=== PATIENT | female | born 1965 | race Caucasian/White ===

== ENCOUNTER 2020-07-13 07:29 | Outpatient (REF) | payer OTHER, SELFPAY ==
[2020-07-13 11:21] LABS: MANUAL DIFF FLAG NO
[2020-07-13 11:26] LABS: Basophils Percent Auto 0.5 % (0-2); Eosinophils Absolute Auto 0.2 X10*3/uL (0.0-0.4); Eosinophils Percent Auto 1.9 % (0-4); Hematocrit 39.3 % (37-47); Hemoglobin 13.4 g/dl (12.0-16.0); Imm Gran Abs Auto 0.02 X10*3/uL (0.00-0.03); Imm Gran Pct Auto 0.3 % (0.0-0.4); Lymphocytes Absolute Auto 2.9 X10*3/uL (1.2-4.9); Lymphocytes Percent Auto 37.6 % (20-40); Mean Corpuscular HGB Conc 34.1 g/dl (31.0-35.0); Mean Corpuscular Hemoglobin 28.9 pg (27.0-33.0); Mean Corpuscular Volume 84.9 fL (80-98); Monocytes Absolute Auto 0.5 X10*3/uL (0.1-1.2); Monocytes Percent Auto 5.8 % (2-11); Neutrophils Absolute Auto 4.2 X10*3/uL (2.0-8.3); Neutrophils Percent Auto 53.9 % (45-73); Platelet Count 253 X10*3/uL (160-400); Red Blood Count 4.63 X10*6/uL (4.20-5.50); Red Cell Distribution Width 13.3 % (11.0-16.0); White Blood Count 7.8 X10*3/uL (4.8-10.8)
[2020-07-13 11:45] LABS: Alanine Aminotransferase 30 U/L (0-31); Alkaline Phosphatase 81 U/L (39-117); Anion Gap 14 (12-20); Aspartate Amino Transferase 20 U/L (5-31); Bilirubin Total 0.5 mg/dL (0.0-1.0); Blood Urea Nitrogen 17 mg/dL (9-16); Calcium 8.8 mg/dL (8.4-10.2); Carbon Dioxide 25 mmol/L (22-29); Chloride 106 mmol/L (96-108); Estimated Glomerular Filt Rate > 60; Glucose Fasting 105 mg/dL (60-99); Potassium 4.1 mmol/l (3.3-5.1); Sodium 141 mmol/L (135-145); Total Protein 6.4 g/dL (6.5-8.0)
[2020-07-13 12:07] LABS: Thyroid Stimulating Hormone 3.05 uIU/mL (0.32-4.0)
[2020-07-15 01:42] LABS: LDL Cholesterol Direct 125 mg/dL (<100)
== END 2020-07-13 07:30 | disposition home or self-care (01) ==
LOC: HO.HMGCLDS 07:29
PROVIDERS: PCP Internal Medicine; Visit Provider Internal Medicine
DX: K21.9 Gastro-esophageal reflux disease without esophagitis (principal); I10 Essential (primary) hypertension; F51.9 Sleep disorder not due to a substance or known physiological condition, unspecified; E66.01 Morbid (severe) obesity due to excess calories; Z68.37 Body mass index [BMI] 37.0-37.9, adult
CPT/HCPCS: 36415; 80053; 83721; 84443; 85025

== ENCOUNTER 2021-01-12 13:51 | Outpatient (REF) | payer OTHER, SELFPAY ==
[2021-01-12 16:51] LABS: MANUAL DIFF FLAG NO
[2021-01-12 16:54] LABS: Basophils Percent Auto 0.4 % (0-2); Eosinophils Absolute Auto 0.1 X10*3/uL (0.0-0.4); Eosinophils Percent Auto 1.7 % (0-4); Hematocrit 40.5 % (37-47); Hemoglobin 13.3 g/dl (12.0-16.0); Imm Gran Abs Auto 0.02 X10*3/uL (0.00-0.03); Imm Gran Pct Auto 0.3 % (0.0-0.4); Lymphocytes Absolute Auto 1.9 X10*3/uL (1.2-4.9); Mean Corpuscular HGB Conc 32.8 g/dl (31.0-35.0); Mean Corpuscular Hemoglobin 27.9 pg (27.0-33.0); Mean Corpuscular Volume 84.9 fL (80-98); Monocytes Absolute Auto 0.5 X10*3/uL (0.1-1.2); Monocytes Percent Auto 6.5 % (2-11); Neutrophils Absolute Auto 4.6 X10*3/uL (2.0-8.3); Neutrophils Percent Auto 64.1 % (45-73); Platelet Count 293 X10*3/uL (160-400); Red Blood Count 4.77 X10*6/uL (4.20-5.50); Red Cell Distribution Width 13.3 % (11.0-16.0); White Blood Count 7.1 X10*3/uL (4.8-10.8)
[2021-01-12 17:22] LABS: Alanine Aminotransferase 23 U/L (0-31); Albumin Level 4.4 g/dL (3.5-5.0); Alkaline Phosphatase 105 U/L (39-117); Anion Gap 16 (12-20); Aspartate Amino Transferase 14 U/L (5-31); Bilirubin Total 0.4 mg/dL (0.0-1.0); Blood Urea Nitrogen 24 mg/dL (9-16); Calcium 9.7 mg/dL (8.4-10.2); Carbon Dioxide 26 mmol/L (22-29); Chloride 105 mmol/L (96-108); Estimated Glomerular Filt Rate > 60; Glucose Random 112 mg/dL (60-115); Potassium 4.4 mmol/L (3.3-5.1); Sodium 143 mmol/L (135-145)
== END 2021-01-12 13:52 | disposition home or self-care (01) ==
LOC: HO.HMGCLDS 13:51
PROVIDERS: PCP Internal Medicine; Visit Provider Internal Medicine
DX: F41.1 Generalized anxiety disorder (principal); I10 Essential (primary) hypertension
CPT/HCPCS: 36415; 80053; 85025

== ENCOUNTER 2021-03-02 14:18 | Outpatient (REF) | payer OTHER, SELFPAY ==
--- NOTE | ~2021-03-02 | CT_ITS ---
EXAMINATION: CT ABDOMEN AND PELVIS WITHOUT CONTRAST CLINICAL INFORMATION: Kidney stone COMPARISON: Previous CT of the abdomen and pelvis most recent May 2018 TECHNIQUE: Multidetector volumetric imaging was performed from the superior aspect of the liver through the pubic symphysis. Sagittal and coronal reformatted images were obtained on the technologist's workstation. This CT examination was performed using dose optimization techniques as appropriate, variously including the following: *Automated exposure control *Adjustment of mA and/or kV according to patient size (this includes techniques or standardized protocols for targeted exams where dose is matched to indication/reason for exam; i.e. extremities or head) *Use of iterative reconstruction technique DLP: 631 mGy-cm FINDINGS: LUNG BASES: The visualized lung bases are unremarkable. LIVER, GALLBLADDER, AND BILIARY TREE: The liver is normal in size, shape, and attenuation. No focal hepatic lesion or biliary ductal dilatation is present. There is a gallstone in the gallbladder. PANCREAS: Unremarkable. SPLEEN: Unremarkable. ADRENAL GLANDS: Unremarkable. KIDNEYS AND URETERS: There is a 3 mm stone in the lower pole of the right kidney. There are 4 left renal stones in the mid pole, largest measuring 3 mm. No hydronephrosis, ureteral dilatation or ureteral stone is seen. BLADDER: Unremarkable. GASTROINTESTINAL TRACT: The small and large bowel are unremarkable. ABDOMINAL WALL: There is diastasis of the rectus muscles and small umbilical hernia containing fat. LYMPH NODES: Normal. VASCULAR: Unremarkable. PELVIC VISCERA: Unremarkable. OSSEOUS STRUCTURES: There are mild degenerative changes of the spine. CT/CT abdomen pelvis wo con IMPRESSION: Bilateral renal stones, left greater than right. Gallstone.
== END 2021-03-02 14:19 | disposition home or self-care (01) ==
LOC: HO.CT 14:18
PROVIDERS: PCP Internal Medicine; Visit Provider Urology
DX: N20.0 Calculus of kidney (principal)
CPT/HCPCS: 74176

== ENCOUNTER 2021-10-26 14:46 | Emergency (ER) | payer OTHER, SELFPAY ==
[2021-10-26 15:11] VITALS: BP 156/92; PULSE 76; RESP 18; TEMP 36.9; O2SAT 97; BMI 36.8
--- NOTE | 2021-10-26 15:13 | ECG_ITS ---
Test Reason : palpitations Blood Pressure : / mmHG Vent. Rate : 076 BPM Atrial Rate : 076 BPM P-R Int : 152 ms QRS Dur : 076 ms QT Int : 374 ms P-R-T Axes : 058 048 040 degrees QTc Int : 420 ms Sinus rhythm with Premature supraventricular complexes Low voltage QRS Borderline ECG When compared with ECG of 30-APR-2020 02:54, Premature supraventricular complexes are now Present Nonspecific T wave abnormality now evident in Anterior leads Referred By: Generic ED Physician Electronically Signed By:ISABELLE PARRA
[2021-10-26 15:50] LABS: MANUAL DIFF FLAG NO
[2021-10-26 15:52] LABS: Basophils Percent Auto 0.4 % (0-2); Eosinophils Absolute Auto 0.1 X10*3/uL (0.0-0.4); Eosinophils Percent Auto 1.1 % (0-4); Hematocrit 40.2 % (37.0-47.0); Hemoglobin 13.3 g/dl (12.0-16.0); Imm Gran Abs Auto 0.03 X10*3/uL (0.00-0.03); Imm Gran Pct Auto 0.4 % (0.0-0.4); Lymphocytes Absolute Auto 2.3 X10*3/uL (1.2-4.9); Lymphocytes Percent Auto 27.6 % (20-40); Mean Corpuscular HGB Conc 33.1 g/dl (31.0-35.0); Mean Corpuscular Hemoglobin 27.7 pg (27.0-33.0); Mean Corpuscular Volume 83.6 fL (80.0-98.0); Mean Platelet Volume 9.2 fL (9.4-12.3); Monocytes Absolute Auto 0.6 X10*3/uL (0.1-1.2); Monocytes Percent Auto 7.1 % (2-11); Neutrophils Absolute Auto 5.4 x10*3/uL (2.0-8.3); Neutrophils Percent Auto 63.4 % (45-73); Platelet Count 261 X10*3/uL (160-400); Red Blood Count 4.81 X10*6/uL (4.20-5.50); White Blood Count 8.4 X10*3/uL (4.8-10.8)
[2021-10-26 16:05] LABS: Anion Gap 13 (12-20); Blood Urea Nitrogen 11 mg/dL (9-16); Carbon Dioxide 30 mmol/L (22-29); Chloride 103 mmol/L (96-108); Estimated Glomerular Filt Rate > 60; Glucose Random 95 mg/dL (60-115); Potassium 4.3 mmol/L (3.3-5.1); Sodium 142 mmol/L (135-145)
[2021-10-26 16:08] LABS: COVID-19 Test Negative (Negative)
[2021-10-26 16:11] LABS: Troponin-I High Sensitivity < 3.5 ng/L (<3.5-17.0)
[2021-10-26 18:27] VITALS: BP 172/81; PULSE 75; RESP 18; TEMP 36.7; O2SAT 95
--- NOTE | 2021-10-26 18:27 | ED_ITS ---
HPI - Arrhythmia/Palpitations General Chief Complaint: Arrhythmia/Palpitations Stated Complaint: Chest pain/sent from urgent care Time Seen by Provider: 10/26/21 18:16 Source: patient Mode of arrival: ambulatory Limitations: no limitations History of Present Illness HPI narrative: Patient comes emergency room complaining of 4 days of intermittent palpitations, no chest pain, no shortness of breath. Patient was seen earlier today at a walk-in clinic, she was instructed to come to the emergency room since they t hought they saw EKG abnormalities. At this time, patient has no palpitations or chest pain. Related Data Previous Rx's Medication Instructions Recorded sertraline 100 mg tablet 100 mg PO DAILY #90 tab 10/08/21 lisinopril 20 mg tablet 20 mg PO DAILY 90 Days #90 tab 10/16/21 Allergies Allergy/AdvReac Type Severity Reaction Status Date / Time amoxicillin [From AUGMENTIN] Allergy Unknown UNKNOWN Verified 10/26/21 13:32 clavulanic acid Allergy Unknown UNKNOWN Verified 10/26/21 13:32 [From AUGMENTIN] Review of Systems Review of Systems: Constitutional : No Weight loss, No Fever, No Chills, No Night Sweats, No Fatigue, No Malaise ENT/Mouth : No Hearing loss, No Ear Pain, No Nasal Congestion, No Sinus Pain, No Hoarseness, No sore throat, No Rhinorrhea, No Swallowing Difficulty Eyes: No Eye Pain, No Swelling, No Redness, No Foreign Body, No Discharge, No Vision Changes Cardiovascular : No Chest Pain, No SOB, No Dyspnea on Exertion, No Orthopnea, No Edema, complaining of intermittent Palpitations Respiratory : No Cough, No Sputum, No Wheezing, No Smoke Exposure, No Dyspnea Gastrointestinal : No Nausea, No Vomiting, No Diarrhea, No Constipation, No abdominal Pain, No Hematochezia, No Melena Genitourinary : no irregular bleeding, No Dysuria, No Urinary Frequency, No Hematuria, No Urinary Incontinence, No Urgency, No Flank Pain, No Urinary Flow Changes, No Hesitancy Musculoskeletal : No joint pain, No Myalgias, No Joint Swelling Skin : No Skin Lesions, No rash Neuro : No Weakness, No Numbness, No Paresthesias, No Loss of Consciousness, No Dizziness, No Headache Psych : No Anxiety/Panic, No Depression, No SI/HI/AH/VH, No Social Issues, Heme/Lymph: No Bruising, No Bleeding,No Lymphadenopathy Endocrine : No Polyuria, No Polydipsia, No Temperature Intolerance [facility] Past Medical History Medical History Anxiety, generalized Essential hypertension Fear of flying History of renal calculi Migraine headache Obesity Surgical History History of appendectomy History of section History of cystoscopy History of knee surgery History of lithotripsy History of oophorectomy History of tonsillectomy History of ureter stent Family History Family History Father Unknown family medical history Mother COPD (chronic obstructive pulmonary disease) HTN (hypertension) CVD (cardiovascular disease) Son No problems noted. Daughter No problems noted. Social History Social History Alcohol intake: current Alcohol intake frequency: holidays/special occasions only Patient Tobacco Use Status: Former Tobacco user Quit Date: 2003 Tobacco use type: Cigarette Advance Directives: No Advance Directives Information Provided: No Physical Exam Vital Signs: Vital Signs: Last Vital Signs Temp 98.1 F 10/26/21 18:27 Pulse 68 10/26/21 19:27 Resp 20 10/26/21 19:27 BP 196/104 H 10/26/21 19:27 Pulse Ox 100 10/26/21 19:27 BMI result Body Mass Index 36.8 Const: Other: Appearance: Alert. Oriented X3. No acute distress. Well-appearing Eyes: Pupils equal, round and reactive to light. ENT: Pharynx normal. Neck: Normal inspection. Neck supple. No lymph nodes noted. No crepitus CVS: Normal heart rate mildly arrhythmic. Pulses normal. Normal S1 and S2 Respiratory: No respiratory distress. Breath sounds normal. No Wheezing. No rales Abdomen: Soft and nontender. No rigidity. No distention. Skin: Skin warm and dry. Normal skin color. Normal skin turgor. Extremities: No lower extremity edema. No Lacerations. No Rash Neuro: Oriented X 3. No motor deficit. No sensory deficit. Moving all extremities. No slurred speech. CN 2 through 12 grossly intact Psych: calm, cooperative, normal affect Course Course Course Narrative: I was informed by the patient's nurse that the patient eloped, did not wait for her results MDM - Arrhythmia/Palpitations Lab Data Result diagrams: 10/26/21 15:41 10/26/21 15:41 Labs: Lab Results 10/26/21 10/26/21 10/26/21 Range/Units 15:41 15:41 15:41 WBC 8.4 (4.8-10.8) X10*3/uL RBC 4.81 (4.20-5.50) X10*6/uL Hgb 13.3 (12.0-16.0) g/dl Hct 40.2 (37.0-47.0) % MCV 83.6 (80.0-98.0) fL MCH 27.7 (27.0-33.0) pg MCHC 33.1 (31.0-35.0) g/dl RDW 13.0 (11.0-16.0) % Plt Count 261 (160-400) X10*3/uL MPV 9.2 L (9.4-12.3) fL Immature Gran % (Auto) 0.4 (0.0-0.4) % Neut % (Auto) 63.4 (45-73) % Lymph % (Auto) 27.6 (20-40) % [place] % (Auto) 7.1 (2-11) % Eos % (Auto) 1.1 (0-4) % Baso % (Auto) 0.4 (0-2) % Lymph # (Auto) 2.3 (1.2-4.9) X10*3/uL [place] # (Auto) 0.6 (0.1-1.2) X10*3/uL Eos # (Auto) 0.1 (0.0-0.4) X10*3/uL Baso # (Auto) 0.0 (0.0-0.2) X10*3/uL Abs Immat Gran (auto) 0.03 (0.00-0.03) X10*3/uL Absolute Neuts (auto) 5.4 (2.0-8.3) x10*3/uL Absolute Nucleated RBC 0.000 (0.0-0.012) X10*3/uL Nucleated RBC % (auto) 0.0 (0.0-0.2) /100WBC Sodium 142 (135-145) mmol/L Potassium 4.3 (3.3-5.1) mmol/L Chloride 103 (96-108) mmol/L Carbon Dioxide 30 H (22-29) mmol/L Anion Gap 13 (12-20) BUN 11 (9-16) mg/dL Creatinine 0.95 (0.5-1.4) mg/dL Estim Creat Clear Calc 75.0 Estimated GFR > 60 Random Glucose 95 (60-115) mg/dL Calcium 10.0 (8.4-10.2) mg/dL Magnesium 1.9 (1.6-2.6) mg/dL Troponin I High Sens < 3.5 (<3.5-17.0) ng/L TSH 1.93 (0.32-4.0) uIU/mL COVID-19 ([facility]) (Negative) COVID-19 Clin Com 10/26/21 Range/Units 15:42 WBC (4.8-10.8) X10*3/uL RBC (4.20-5.50) X10*6/uL Hgb (12.0-16.0) g/dl Hct (37.0-47.0) % MCV (80.0-98.0) fL MCH (27.0-33.0) pg MCHC (31.0-35.0) g/dl RDW (11.0-16.0) % Plt Count (160-400) X10*3/uL MPV (9.4-12.3) fL Immature Gran % (Auto) (0.0-0.4) % Neut % (Auto) (45-73) % Lymph % (Auto) (20-40) % [place] % (Auto) (2-11) % Eos % (Auto) (0-4) % Baso % (Auto) (0-2) % Lymph # (Auto) (1.2-4.9) X10*3/uL [place] # (Auto) (0.1-1.2) X10*3/uL Eos # (Auto) (0.0-0.4) X10*3/uL Baso # (Auto) (0.0-0.2) X10*3/uL Abs Immat Gran (auto) (0.00-0.03) X10*3/uL Absolute Neuts (auto) (2.0-8.3) x10*3/uL Absolute Nucleated RBC (0.0-0.012) X10*3/uL Nucleated RBC % (auto) (0.0-0.2) /100WBC Sodium (135-145) mmol/L Potassium (3.3-5.1) mmol/L Chloride (96-108) mmol/L Carbon Dioxide (22-29) mmol/L Anion Gap (12-20) BUN (9-16) mg/dL Creatinine (0.5-1.4) mg/dL Estim Creat Clear Calc Estimated GFR Random Glucose (60-115) mg/dL Calcium (8.4-10.2) mg/dL Magnesium (1.6-2.6) mg/dL Troponin I High Sens (<3.5-17.0) ng/L TSH (0.32-4.0) uIU/mL COVID-19 ([facility]) Negative (Negative) COVID-19 Clin Com See Note ECG Data Attestation: I personally reviewed and interpreted this ECG as follows: (Sinus rhythm with PVCs, heart rate 76, no systemic depression or elevation, no T-wave inversion, QTC 420) Discharge Plan Discharge Clinical Impression: Palpitations Patient Disposition: Elopement Prescriptions: No Action sertraline 100 mg tablet 100 mg PO DAILY Qty: 90 0RF lisinopril 20 mg tablet 20 mg PO DAILY 90 Days Qty: 90 1RF
[2021-10-26 18:41] LABS: Magnesium 1.9 mg/dL (1.6-2.6)
[2021-10-26 19:01] LABS: Thyroid Stimulating Hormone 1.93 uIU/mL (0.32-4.0)
--- NOTE | 2021-10-26 19:20 | PC.NURSE ---
Melida coy. As i finished taking nursing report at the onset of my shift the patient walked by the nurses station, speaking to me and Gniny Crenshaw, and stated if you can just let them know that room 8 left I'm all set at which time the pt walked out of the department - independently and with steady gait. MD John notified. field engineer aware.
[2021-10-26 19:27] VITALS: BP 196/104; PULSE 68; RESP 20; O2SAT 100
== END 2021-10-26 20:13 | disposition left against medical advice (07) ==
PROVIDERS: Emergency Provider Emergency Medicine; PCP Internal Medicine
DX: R00.2 Palpitations (principal); I10 Essential (primary) hypertension; Z20.822 Contact with and (suspected) exposure to COVID-19
CPT/HCPCS: 80048; 83735; 84443; 84484; 85025; 87635; 93005; 99283; 99284

== ENCOUNTER 2021-11-16 09:32 | Outpatient (REF) | payer OTHER, SELFPAY ==
[2021-11-16 11:43] LABS: MANUAL DIFF FLAG NO
[2021-11-16 11:50] LABS: Basophils Percent Auto 0.4 % (0-2); Eosinophils Absolute Auto 0.1 X10*3/uL (0.0-0.4); Eosinophils Percent Auto 1.3 % (0-4); Hematocrit 39.7 % (37.0-47.0); Imm Gran Abs Auto 0.02 X10*3/uL (0.00-0.03); Imm Gran Pct Auto 0.3 % (0.0-0.4); Lymphocytes Absolute Auto 1.9 X10*3/uL (1.2-4.9); Lymphocytes Percent Auto 29.1 % (20-40); Mean Corpuscular HGB Conc 32.7 g/dl (31.0-35.0); Mean Corpuscular Hemoglobin 27.6 pg (27.0-33.0); Mean Corpuscular Volume 84.3 fL (80.0-98.0); Mean Platelet Volume 10.1 fL (9.4-12.3); Monocytes Absolute Auto 0.5 X10*3/uL (0.1-1.2); Monocytes Percent Auto 6.7 % (2-11); Neutrophils Absolute Auto 4.1 x10*3/uL (2.0-8.3); Neutrophils Percent Auto 62.2 % (45-73); Platelet Count 231 X10*3/uL (160-400); Red Blood Count 4.71 X10*6/uL (4.20-5.50); Red Cell Distribution Width 13.4 % (11.0-16.0); White Blood Count 6.7 X10*3/uL (4.8-10.8)
[2021-11-16 12:14] LABS: Alanine Aminotransferase 32 U/L (0-31); Albumin Level 4.1 g/dL (3.5-5.0); Alkaline Phosphatase 79 U/L (39-117); Anion Gap 14 (12-20); Aspartate Amino Transferase 18 U/L (5-31); Bilirubin Total 0.5 mg/dL (0.0-1.0); Blood Urea Nitrogen 20 mg/dL (9-16); Calcium 9.5 mg/dL (8.4-10.2); Carbon Dioxide 27 mmol/L (22-29); Chloride 105 mmol/L (96-108); Cholesterol 198 mg/dL; Estimated Glomerular Filt Rate > 60; Glucose Fasting 123 mg/dL (60-99); HDL Cholesterol 65 mg/dL; LDL Cholesterol Calculated 111 mg/dl; Magnesium 1.9 mg/dL (1.6-2.6); Potassium 4.5 mmol/L (3.3-5.1); Sodium 141 mmol/L (135-145); Total Protein 6.6 g/dL (6.5-8.0); Triglycerides 113 mg/dL
[2021-11-16 12:17] LABS: Estimated Average Glucose 114 mg/dL; Hemoglobin A1c % 5.6 %
[2021-11-16 12:22] LABS: TSH reflex Free T4 1.75 uIU/mL (0.32-4.0)
== END 2021-11-16 09:33 | disposition home or self-care (01) ==
LOC: HO.HMGCLDS 09:32
PROVIDERS: PCP Internal Medicine; Visit Provider Internal Medicine
DX: Z00.01 Encounter for general adult medical examination with abnormal findings (principal); I49.1 Atrial premature depolarization; K62.5 Hemorrhage of anus and rectum; R06.02 Shortness of breath; R19.8 Other specified symptoms and signs involving the digestive system and abdomen; R73.01 Impaired fasting glucose; I10 Essential (primary) hypertension
CPT/HCPCS: 36415; 80053; 80061; 83036; 83735; 84443; 85025

== ENCOUNTER 2021-12-09 07:15 | Emergency (ER) | payer OTHER, SELFPAY ==
--- NOTE | ~2021-12-09 | XR_ITS ---
EXAMINATION: XR CHEST CLINICAL INFORMATION: Left rib tenderness and dyspnea. COMPARISON: None TECHNIQUE: 2 views of the chest were obtained. FINDINGS: The lungs are well-expanded and clear acute pneumonic process. The heart size and pulmonary vascularity is normal. No gross bony abnormality seen. XR/XR chest 2V IMPRESSION: Unremarkable chest exam.
[2021-12-09 07:34] VITALS: BP 175/95; PULSE 78; RESP 18; TEMP 36.6; O2SAT 99; BMI 36.8
[2021-12-09 08:14] LABS: MANUAL DIFF FLAG NO
[2021-12-09 08:17] LABS: Basophils Percent Auto 0.4 % (0-2); Eosinophils Absolute Auto 0.1 X10*3/uL (0.0-0.4); Eosinophils Percent Auto 1.9 % (0-4); Hematocrit 37.4 % (37.0-47.0); Hemoglobin 12.4 g/dl (12.0-16.0); Imm Gran Abs Auto 0.09 X10*3/uL (0.00-0.03); Imm Gran Pct Auto 1.3 % (0.0-0.4); Lymphocytes Absolute Auto 2.1 X10*3/uL (1.2-4.9); Lymphocytes Percent Auto 29.7 % (20-40); Mean Corpuscular HGB Conc 33.2 g/dl (31.0-35.0); Mean Corpuscular Hemoglobin 27.7 pg (27.0-33.0); Mean Corpuscular Volume 83.5 fL (80.0-98.0); Monocytes Absolute Auto 0.5 X10*3/uL (0.1-1.2); Monocytes Percent Auto 6.5 % (2-11); Neutrophils Absolute Auto 4.2 x10*3/uL (2.0-8.3); Neutrophils Percent Auto 60.2 % (45-73); Platelet Count 254 X10*3/uL (160-400); Red Blood Count 4.48 X10*6/uL (4.20-5.50); Red Cell Distribution Width 13.1 % (11.0-16.0); White Blood Count 6.9 X10*3/uL (4.8-10.8)
[2021-12-09 08:33] LABS: Anion Gap 14 (12-20); Blood Urea Nitrogen 20 mg/dL (9-16); Calcium 9.7 mg/dL (8.4-10.2); Carbon Dioxide 25 mmol/L (22-29); Chloride 105 mmol/L (96-108); Creatinine Clr Calc Pharmacy 82.8; Estimated Glomerular Filt Rate > 60; Glucose Random 115 mg/dL (60-115); Potassium 4.4 mmol/L (3.3-5.1); Sodium 140 mmol/L (135-145)
--- NOTE | 2021-12-09 10:20 | ED.SOB ---
HPI - SOB/Dyspnea General Chief Complaint: Dyspnea Stated Complaint: pain l side Time Seen by Provider: 12/09/21 10:18 Source: patient Mode of arrival: ambulatory Limitations: no limitations History of Present Illness HPI Narrative: positive for COVID 11/25 MD elicited complaint: shortness of breath and chest pain Pertinent past history: other (COVID 4 no treatments done vaccinated hx of RAD hx of smoking ) Onset (ago): day(s) (few) Context: recent illness Severity: moderate Exacerbating factors: coughing and inspiration Relieving factors: nothing Known history of: other (reactive aiway disease) Associated symptoms: chest pain and cough Treatment prior to arrival: none Related Data Previous Rx's Medication Instructions Recorded lisinopril 20 mg tablet 20 mg PO DAILY 90 Days #90 tab 10/16/21 albuterol sulfate 90 mcg/actuation 2 puff INHALATION Q4H PRN #8.5 g 12/03/21 aerosol inhaler (ProAir HFA) azithromycin 250 mg tablet See Rx Instructions .ROUTE 12/09/21 .COMPLEX #6 tab cyclobenzaprine 10 mg tablet 10 mg PO TID PRN #14 tab 12/09/21 prednisone 20 mg tablet 40 mg PO DAILY 5 Days #10 tab 12/09/21 Allergies Allergy/AdvReac Type Severity Reaction Status Date / Time amoxicillin [From AUGMENTIN] Allergy Unknown UNKNOWN Verified 11/09/21 14:41 clavulanic acid Allergy Unknown UNKNOWN Verified 11/09/21 14:41 [From AUGMENTIN] Review of Systems Review of Systems: Constitutional : No Weight loss, No Fever, No Chills ENT/Mouth : No sore throat, No Rhinorrhea Eyes: No Eye Pain, No Swelling Cardiovascular : pos Chest Pain, pos SOB, no Dyspnea on Exertion, No Orthopnea, No Edema, No Palpitations Respiratory : pos Cough, No Sputum Gastrointestinal : no Nausea, No Vomiting, No Diarrhea, No abdominal Pain, No Hematochezia, No Melena Genitourinary : No Dysuria, No Urinary Frequency Musculoskeletal : No joint pain, No Myalgias, No Joint Swelling Skin : No Skin Lesions, No rash Neuro : No Weakness, No Numbness, No Dizziness, No Headache Psych : No Anxiety/Panic, No Depression Heme/Lymph: No Bruising, No Lymphadenopathy Endocrine : No Polyuria, No Polydipsia All other systems reviewed and are negative [facility] Past Medical History Attestation statement: The following information was validated with the patient. Medical History Anxiety, generalized Essential hypertension Fear of flying History of renal calculi Migraine headache Obesity Surgical History History of appendectomy History of section History of cystoscopy History of knee surgery History of lithotripsy History of oophorectomy History of tonsillectomy History of ureter stent Family History Family History Father Unknown family medical history Mother COPD (chronic obstructive pulmonary disease) HTN (hypertension) CVD (cardiovascular disease) Son No problems noted. Daughter No problems noted. Other Mental health disorder Social History Social History Housing: House Alcohol intake: current Alcohol intake frequency: holidays/special occasions only Patient Tobacco Use Status: Former Tobacco user Quit Date: 2003 Tobacco use type: Cigarette Advance Directives: No Advance Directives Information Provided: No Current occupational status: employed Physical Exam Vital Signs: Vital Signs: Last Vital Signs Temp 98.1 F 12/09/21 10:45 Pulse 73 12/09/21 10:45 Resp 18 12/09/21 10:45 BP 154/89 H 12/09/21 10:45 Pulse Ox 98 12/09/21 10:45 BMI result Body Mass Index 36.8 Appearance: Alert. Oriented X3. No acute distress. Eyes: Pupils equal, round and reactive to light. ENT: Pharynx normal. Neck: Normal inspection. Neck supple. CVS: Normal heart rate and rhythm. Pulses normal. Respiratory: No respiratory distress. Breath sounds normal. splinting L side Abdomen: Soft and nontender. Skin: Skin warm and dry. Normal skin color. Normal skin turgor. Extremities: No lower extremity edema. No calf ttp Neuro: Oriented X 3. No motor deficit. No sensory deficit. Course Course Course Narrative: CXR, EKG, troponin negative ddimer under upper limits of normal MDM - SOB/Dyspnea MDM Narrative Medical decision making narrative: 56 yo female with hx of RAD s/p smoking but quit several years ago, HTN hasn't taken her medications in 2 days, COVID + 11/25 no treatments during the illness she is vaccinated at this time c/o pleuritic L sided chest pain for the past few days. At this time will need basic labs, troponin, ddimer, CXR, EKG possible pleurisy/pneumonia vs PE dispo per results and findings. Lab Data Result diagrams: 12/09/21 08:10 12/09/21 08:09 Labs: Lab Results 12/09/21 12/09/21 12/09/21 Range/Units 08:09 08:09 08:10 WBC 6.9 (4.8-10.8) X10*3/uL RBC 4.48 (4.20-5.50) X10*6/uL Hgb 12.4 (12.0-16.0) g/dl Hct 37.4 (37.0-47.0) % MCV 83.5 (80.0-98.0) fL MCH 27.7 (27.0-33.0) pg MCHC 33.2 (31.0-35.0) g/dl RDW 13.1 (11.0-16.0) % Plt Count 254 (160-400) X10*3/uL MPV 9.0 L (9.4-12.3) fL Immature Gran % (Auto) 1.3 H (0.0-0.4) % Neut % (Auto) 60.2 (45-73) % Lymph % (Auto) 29.7 (20-40) % [place] % (Auto) 6.5 (2-11) % Eos % (Auto) 1.9 (0-4) % Baso % (Auto) 0.4 (0-2) % Lymph # (Auto) 2.1 (1.2-4.9) X10*3/uL [place] # (Auto) 0.5 (0.1-1.2) X10*3/uL Eos # (Auto) 0.1 (0.0-0.4) X10*3/uL Baso # (Auto) 0.0 (0.0-0.2) X10*3/uL Abs Immat Gran (auto) 0.09 H (0.00-0.03) X10*3/uL Absolute Neuts (auto) 4.2 (2.0-8.3) x10*3/uL Absolute Nucleated RBC 0.000 (0.0-0.012) X10*3/uL Nucleated RBC % (auto) 0.0 (0.0-0.2) /100WBC D-Dimer High Sensitivty NG/ML Sodium 140 (135-145) mmol/L Potassium 4.4 (3.3-5.1) mmol/L Chloride 105 (96-108) mmol/L Carbon Dioxide 25 (22-29) mmol/L Anion Gap 14 (12-20) BUN 20 H (9-16) mg/dL Creatinine 0.85 (0.5-1.4) mg/dL Estim Creat Clear Calc 82.8 Estimated GFR > 60 Random Glucose 115 (60-115) mg/dL Calcium 9.7 (8.4-10.2) mg/dL Troponin I High Sens < 3.5 (<3.5-17.0) ng/L 12/09/21 Range/Units 10:28 WBC (4.8-10.8) X10*3/uL RBC (4.20-5.50) X10*6/uL Hgb (12.0-16.0) g/dl Hct (37.0-47.0) % MCV (80.0-98.0) fL MCH (27.0-33.0) pg MCHC (31.0-35.0) g/dl RDW (11.0-16.0) % Plt Count (160-400) X10*3/uL MPV (9.4-12.3) fL Immature Gran % (Auto) (0.0-0.4) % Neut % (Auto) (45-73) % Lymph % (Auto) (20-40) % [place] % (Auto) (2-11) % Eos % (Auto) (0-4) % Baso % (Auto) (0-2) % Lymph # (Auto) (1.2-4.9) X10*3/uL [place] # (Auto) (0.1-1.2) X10*3/uL Eos # (Auto) (0.0-0.4) X10*3/uL Baso # (Auto) (0.0-0.2) X10*3/uL Abs Immat Gran (auto) (0.00-0.03) X10*3/uL Absolute Neuts (auto) (2.0-8.3) x10*3/uL Absolute Nucleated RBC (0.0-0.012) X10*3/uL Nucleated RBC % (auto) (0.0-0.2) /100WBC D-Dimer High Sensitivty 223 NG/ML Sodium (135-145) mmol/L Potassium (3.3-5.1) mmol/L Chloride (96-108) mmol/L Carbon Dioxide (22-29) mmol/L Anion Gap (12-20) BUN (9-16) mg/dL Creatinine (0.5-1.4) mg/dL Estim Creat Clear Calc Estimated GFR Random Glucose (60-115) mg/dL Calcium (8.4-10.2) mg/dL Troponin I High Sens (<3.5-17.0) ng/L ECG Data Attestation: I personally reviewed and interpreted this ECG as follows: ECG interpretation date: 12/09/21 ECG interpretation time: 10:37 Interpretation: Rate: 73 Rhythm: NSR Howes: normal Normal P waves. Normal LULU. Normal QRS complex. ST T wave : normal no ANUPAM qTC: normal prior studies: no acute ischemia The study has been interpreted contemporaneously by me. . Discharge Plan Discharge Clinical Impression: Pleurisy Patient Disposition: Home, Self-Care Instructions: Pleurisy (ED) Additional Instructions: return to ED for any worsening symptoms or concerns negative blood work , heart tests, blood clot tests negative, chest xray negative Prescriptions: New cyclobenzaprine 10 mg tablet 10 mg PO TID PRN (Reason: muscle spasm) Qty: 14 0RF azithromycin 250 mg tablet See Rx Instructions .ROUTE .COMPLEX Qty: 6 0RF Rx Instructions: For 250 mg dose pack: take 500 mg today (day 1), then 250 mg for 4 days (days 2-5) prednisone 20 mg tablet 40 mg PO DAILY 5 Days Qty: 10 0RF No Action lisinopril 20 mg tablet 20 mg PO DAILY 90 Days Qty: 90 1RF albuterol sulfate [ProAir HFA] 90 mcg/actuation HFA aerosol inhaler 2 puff inhalation Q4H PRN (Reason: shortness of breath or wheezing) Qty: 8.5 0RF Referrals: Maria Isabel Avendano MD [Primary Care Provider] - (if not better 2 days) Stand Alone Forms: Work/School Release
[2021-12-09 10:45] VITALS: BP 154/89; PULSE 73; RESP 18; TEMP 36.7; O2SAT 98
[2021-12-09] MEDS: lisinopriL 20 MG TABLET PO (10:45)
[2021-12-09] MEDS: predniSONE 20 MG TABLET 60 MG PO (10:45)
[2021-12-09 10:55] LABS: Troponin-I High Sensitivity < 3.5 ng/L (<3.5-17.0)
[2021-12-09 10:59] LABS: D Dimer High Sensitivity 223 NG/ML
== END 2021-12-09 11:22 | disposition home or self-care (01) ==
PROVIDERS: Emergency Provider Emergency Medicine; PCP Internal Medicine
DX: R09.1 Pleurisy (principal); I10 Essential (primary) hypertension; Z87.891 Personal history of nicotine dependence
CPT/HCPCS: 36415; 71046; 80048; 84484; 85025; 85379; 99283

== ENCOUNTER 2021-12-21 07:55 | Outpatient (REF) | payer OTHER, SELFPAY ==
--- NOTE | ~2021-12-21 | MM_ITS ---
EXAMINATION: MM SCREENING DIGITAL BREAST TOMOSYNTHESIS, BILATERAL CLINICAL INFORMATION: Screening. Asymptomatic. The lifetime risk of breast cancer based on the Tyrer-Cuzick Model is 8%. COMPARISON: Mammography: 06/01/2018, 06/23/2017, 05/30/2017 TECHNIQUE: Digital breast tomosynthesis is performed in both the craniocaudal and mediolateral oblique views along with computer-aided detection (CAD). Synthesized 2D images are generated from the tomosynthesis. FINDINGS: There are scattered areas of fibroglandular density (ACR BI-RADS breast composition Category b). There are no significant masses, abnormal calcifications, or other abnormalities. Parenchymal pattern is similar to prior studies. The axilla are unremarkable. MM/MM tomosynthesis screening BI IMPRESSION: No mammographic evidence of malignancy. ASSESSMENT: BI-RADS 1: Negative RECOMMENDATION: Routine annual mammography screening. This patient's information was entered into a reminder system with a target due date for their next mammogram.
--- NOTE | 2021-12-21 14:24 | PFT_ITS ---
Forced vital capacity 66%, FEV1 65%. FEV1/FVC ratio is 78, normal. FEF 25-75 57% and MVV 78%. Post-bronchodilator therapy, there is a slight improvement in FEF 25-75. Total lung capacity 70%, residual volume 70%. Diffusion capacity 72%. CONCLUSION: There is evidence of mild restrictive pulmonary disorder. Also mild small airway obstructive disorder which improves after bronchodilator therapy. This may indicate mild bronchial asthma/reactive airways. Clinical correlation is recommended. Maryann Wilson MD MSSergio/MODL / [id number]
== END 2021-12-21 07:56 | disposition home or self-care (01) ==
LOC: HO.RESP 07:55
PROVIDERS: PCP Internal Medicine; Visit Provider Internal Medicine
DX: Z12.31 Encounter for screening mammogram for malignant neoplasm of breast (principal); R06.02 Shortness of breath; Z87.891 Personal history of nicotine dependence
CPT/HCPCS: 77063; 77067; 94060; 94727; 94729

== ENCOUNTER → 2022-01-14 14:43 | Outpatient (BNVA) | payer OTHER, SELFPAY | PROVIDERS: PCP Internal Medicine; Referring Provider Internal Medicine; Visit Provider Internal Medicine Cardiovascular Disease | DX: Z13.89 Encounter for screening for other disorder (principal) ==

== ENCOUNTER 2022-02-08 09:29 | Outpatient (REF) | payer OTHER, SELFPAY ==
[2022-02-08 15:48] LABS: CT PCR NOT DETECTED (Not Detect.); NG PCR NOT DETECTED (Not Detect.)
[2022-02-09 15:00] LABS: BV Int Neg Control Negative (Negative); BV Int Pos Control Positive (Positive)
[2022-02-15 07:06] LABS: HPV mRNA E6/E7 rflx Not Detected (Not Detected)
== END 2022-02-08 09:30 | disposition home or self-care (01) ==
LOC: HO.LAB 09:29
PROVIDERS: Visit Provider Advanced Practice Midwife
DX: Z01.419 Encounter for gynecological examination (general) (routine) without abnormal findings (principal)
CPT/HCPCS: 87480; 87491; 87510; 87591; 87624; 87660; 88142

== ENCOUNTER → 2022-02-21 09:57 | Outpatient (REF) | payer OTHER, SELFPAY ==
--- NOTE | ~2022-02-21 | NM_ITS ---
Myocardial perfusion study Indication: Shortness of breath evaluate for myocardial ischemia Technique: The patient was brought in for a Lexiscan perfusion study on 02/21/2022. Patient performed low-level exercise and was injected 0.4 mg of Lexiscan intravenously. Within a minute of injection, 30 mCi of sestamibi was given intravenously. Images were obtained using the SPECT gamma camera interlaced with the gating device. Images were obtained in supine position. Resting perfusion study was performed on 02/22/2022. Patient was administered 30 mCi of sestamibi intravenously at rest. Images were then obtained in supine position. Images obtained with and without CT attenuation. Total DLP 120 mGy-cm. Images were processed with the software and compared side to side in short axis, horizontal long axis and vertical long axis views. Findings: The stress perfusion study showed both attenuated as well as non attenuated images show normal uptake of radiotracer in all segments of LV myocardium. The gated study shows normal LV systolic function with visually estimated LVEF of greater than 60%. LV cavity is normal in size. The gated study shows normal systolic wall thickening and contraction of segments. Resting study shows no significant change in perfusion pattern compared to stress perfusion study. Gating at rest reveals normal systolic wall motion with ejection fraction at 56%. The findings are consistent with normal myocardial perfusion. NM/NM lorene perf SPECT rest & str Impression: 1. Myocardial perfusion imaging study shows normal myocardial perfusion 2. Gated LVEF is 56% 3. Transient ischemic dilatation not present EKG is nondiagnostic for ischemia
--- NOTE | 2022-02-21 10:00 | CA_ITS ---
Acquisition Time: 2022-02-21 10:16:52 Total Exercise Time: 00:02:00 Test Indications: Dyspnea Medications: ALBUTEROL LISINOPRIL PREDNISONE CYCLOBENZAPRINE AZITHROMYCIN Protocol: LEXISCAN Max HR: 107 BPM 65% of Pred: 163 BPM Max BP: 112/070 mmHG Max Work Load: 1.6 METS Pharmacological stress test using Lexiscan while walking on the treadmill for 2 minutes. Pt tolerated well, denies any CP, reports SOB after injected with Mariola. EKG without any arrhythmias, non-diagnostic for ischemia. Nuclear images to follow. Normotensive response to test. Test reviewed with Dr. Herring Referred By: Willy Herring Overread By: Isela Celeste NP
== END ==
LOC: HO.CARD 09:57
PROVIDERS: PCP Internal Medicine; Visit Provider Internal Medicine Cardiovascular Disease
DX: R06.02 Shortness of breath (principal)
CPT/HCPCS: 78452; 93017; A9500; J0280; J2785

== ENCOUNTER → 2022-02-22 12:04 | Outpatient (REF) | payer OTHER, SELFPAY ==
--- NOTE | 2022-02-22 12:07 | CA_ITS ---
Transthoracic Echocardiogram Patient (Last, First, Middle): Melida Chapa, Gender: Female Date of : 1965 Age: 56 Procedure Date: 02/22/2022 Procedure Type: Transthoracic Echocardiogram Location: OP Height: 157.48 cm Weight: 98.43 kg BSA: 1.98 m2 Heart Rate: 88 bpm BP: 108 / 64 mmHg Coagulation Operator: JOHANNY Referring MD: Willy Herring MD Mechanical Spreader Operator: Willy Herring MD Symptoms: R06.02 - Shortness of breath Study Quality: Fair ECG Rhythm: Sinus Conclusions: - 1. Hyperdynamic LV systolic function with LVEF of greater than 70% with grade 1 diastolic dysfunction 2. Increased gradient across aortic valve which could suggest early aortic stenosis worse is high stroke volume 3. No gross pericardial effusion Findings Procedure Information Contrast agent, definity, is being given per protocol without apparent complications. Left Ventricle Normal left ventricular cavity size. There is normal left ventricular wall thickness. The left ventricular systolic function is hyperdynamic. The visually estimated ejection fraction is >70%. Spectral Doppler is indicative of an impaired relaxation filling pattern. E/E prime ratio is <8, consistent with normal filling pressures. Evidence suggests grade I (mild) diastolic dysfunction. Right Ventricle Normal right ventricular cavity size and systolic function. Atria The left atrium is normal in size. The right atrium was not well visualized. Aortic Valve The aortic valve was not well visualized. There is no aortic valve stenosis. There is no aortic valve regurgitation. slightly increased gradient, could suggest early aortic stenosis Mitral Valve There is mild anterior mitral leaflet thickening. There is mild mitral annular calcification. There is trace mitral valve regurgitation. There is no mitral valve stenosis. Pulmonic Valve The pulmonic valve was not well visualized. Tricuspid Valve The tricuspid valve was not well visualized. Tricuspid regurgitation envelope is inadequate for calculation of right ventricular systolic pressure. Normal right atrial pressure. Great Vessels All visible segments of the aorta are normal in size. The pulmonary artery was not well visualized. Venous The inferior vena cava is normal in size and collapses greater than 50% with inspiration. Pericardium/Pleural There is no evidence of pericardial effusion. Prior Study Comparison No prior study available for comparison. Measurements 2D Linear Measurements IVSd: 0.86 0.6-0.9/0.6-1.0 cm LVIDd: 5.02 3.9-5.3/4.2-5.9 cm LVIDd Index: 2.54 2.4-3.2/2.2-3.1 cm/m2 LVIDs: 2.91 2.0-3.6 cm LVPWd: 0.52 0.7-1.1 cm LA Diam: 3.40 2.7-3.8/3.0-4.0 cm LAIDs Index: 1.72 1.5-2.3 cm/m2 LV Mass: 141.06 67-162/88-224 g LV Mass Index: 71.24 43-95/49-115 g/m2 LVOT Diam: 2.30 3.0+(-)1.3 cm 2D Systolic Function EF 4C: 79.00 >55% EF 2C: 76.80 >55% EF BiP: 77.20 >55% Mitral Valve MV Pk E: 0.72 MV PK A: 0.91 MV Decel Time: 163.00 E/A: 0.80 E'Lateral: 7.83 E'Medial: 10.20 E/E' Med: 7.00 E/E' Lat: 9.10 PHT: 48.00 MVA PHT: 4.58 Decel Carver: 4.39 Aortic Valve AoV Pk Niraj: 2.30 AoV Mn Niraj: 1.53 AoV VTI: 0.42 AoV Pk Grad: 21.00 Aov Mn Grad: 11.00 ARTHUR Cont.VTI: 2.40 LVOT LVOT Pk Niraj: 1.20 LVOT Mn Niraj: 0.78 LVOT VTI: 0.25 LVOT Pk Grad: 6.00 LVOT Mn Grad: 3.00 LVOT Diam: 2.30 LVOT Area: 4.15 Diastolic Function MV Pk E: 0.72 MV Pk A: 0.91 E/A: 0.80 E'Medial: 10.20 E/E' Med: 7.00 E' Laterial: 7.83 E/E' Lat: 9.10 Right Ventricle TAPSE (mm): 20.30 TVS' Niraj: 18.20 Tricuspid Valve RA Press: 3.00 Great Vessels Aorta Sinus of Valsalva: 3.50 2.0-3.5 cm Ao Asc: 3.30 2.1-3.4 cm Ao Arch: 2.70 Pulmonary Veins Pulm Vein S/D 1.70 Pulmonary Valve PV Pk Niraj: 1.17 Peak PV Grad: 5.00 Updated in Other Vendor System with Status of Final Willy Herring MD electronically signed on 02/24/2022 12:54:46 PM with status of Final
== END ==
LOC: HO.CARD 12:04
PROVIDERS: PCP Internal Medicine; Visit Provider Internal Medicine Cardiovascular Disease
DX: R06.02 Shortness of breath (principal)
CPT/HCPCS: 93306; Q9957

== ENCOUNTER 2022-06-21 08:17 | Outpatient (REF) | payer OTHER, SELFPAY ==
[2022-06-21 12:27] LABS: TSH reflex Free T4 2.67 uIU/mL (0.32-4.0)
[2022-06-21 12:49] LABS: Alanine Aminotransferase 20 U/L (0-31); Albumin Level 4.1 g/dL (3.5-5.0); Alkaline Phosphatase 67 U/L (39-117); Anion Gap 17 (12-20); Aspartate Amino Transferase 13 U/L (5-31); Bilirubin Total 0.4 mg/dL (0.0-1.0); Blood Urea Nitrogen 12 mg/dL (9-16); Calcium 9.3 mg/dL (8.4-10.2); Carbon Dioxide 25 mmol/L (22-29); Chloride 105 mmol/L (96-108); Estimated Glomerular Filt Rate > 60; Glucose Fasting 116 mg/dL (60-99); Potassium 4.1 mmol/L (3.3-5.1); Sodium 143 mmol/L (135-145); Total Protein 6.4 g/dL (6.5-8.0)
[2022-06-21 12:52] LABS: Estimated Average Glucose 103 mg/dL; Hemoglobin A1c % 5.2 %
[2022-06-24 04:42] LABS: LDL Cholesterol Direct 112 mg/dL (<100)
== END 2022-06-21 08:18 | disposition home or self-care (01) ==
LOC: HO.HMGCLDS 08:17
PROVIDERS: PCP Internal Medicine; Visit Provider Internal Medicine
DX: I10 Essential (primary) hypertension (principal); R73.01 Impaired fasting glucose; E66.09 Other obesity due to excess calories
CPT/HCPCS: 36415; 80053; 83036; 83721; 84443

== ENCOUNTER 2022-07-30 08:55 | Day surgery (SDC) | payer OTHER, SELFPAY ==
[2022-07-25 13:58] VITALS: BMI 34.4
--- NOTE | 2022-07-29 11:45 | P.CONAN_ITS ---
Documented by User: Viviana Singh NP 07/29/22 11:49 HPI - Anesthesia Eval Consult details Narrative: 56yo F for Upper Endoscopy and Colonoscopy PMFSH Active Problems Active Problems: All Active Problems (Updated 02/15/22 @ 12:58 by Maria Isabel Avendano MD) Obesity due to excess calories (Acute) Change in bowel function (Acute) Rectal bleed (Acute) Encounter for routine gynecological examination (Acute) Impaired fasting blood sugar (Acute) Ex-smoker (Acute) Shortness of breath (Acute) Premature atrial contraction (Acute) Encounter for general adult medical examination with abnormal findings (Acute) Breast screening (Acute) Obesity (Acute) Migraine headache (Acute) Anxiety, generalized (Acute) Essential hypertension (Acute) Past Medical History Medical History Anxiety, generalized Essential hypertension Fear of flying History of renal calculi Migraine headache Obesity Family History Family History Father Unknown family medical history Mother COPD (chronic obstructive pulmonary disease) HTN (hypertension) CVD (cardiovascular disease) Son No problems noted. Daughter No problems noted. 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 occupational 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 Cognitive needs: No Hearing needs: No Vision needs: Yes Meds Allergies Allergy/AdvReac Type Severity Reaction Status Date / Time clavulanic acid AdvReac Mild Irritable Verified 06/28/22 12:30 [From AUGMENTIN] Exam Exam Date and Time: July 29, 2022 1145 Height,Weight and Vital Signs: Height 5 ft 4 in Weight 91.172 kg Pertinent Lab Results Pertinent Lab Results: Laboratory Tests 12/09/21 06/21/22 08:10 08:21 WBC 6.9 Hgb 12.4 Hct 37.4 Plt Count 254 Sodium 143 Potassium 4.1 Chloride 105 Carbon Dioxide 25 BUN 12 Creatinine 0.81 Narrative Narrative: EKG 10/2021 SR with PACs @ 84 ECHO 02/2022 Conclusions: - 1. Hyperdynamic LV systolic function with LVEF of greater than 70% with grade 1 diastolic dysfunction ? 2. Increased gradient across aortic valve which could suggest? ? early aortic stenosis worse is high stroke volume? 3. No gross pericardial effusion ? ? NM lorene perf SPECT rest & str 02/2022 Impression: ? 1.? Myocardial perfusion imaging study shows normal myocardial perfusion 2.? Gated LVEF is 56% 3. Transient ischemic dilatation not present ? EKG is nondiagnostic for ischemia Assessment and Plan Assessment Anesthesia Assessment: Chart Reviewed Documented by User: Fortino Higuera MD 07/30/22 09:46 [facility] Past Medical History Medical History Anxiety, generalized Essential hypertension Fear of flying History of renal calculi Migraine headache Obesity Family History Family History Father Unknown family medical history Mother COPD (chronic obstructive pulmonary disease) HTN (hypertension) CVD (cardiovascular disease) Son No problems noted. Daughter No problems noted. Other Mental health disorder Family history of problems with anesthesia: No Surgical History Surgical History History of appendectomy History of section History of cystoscopy History of knee surgery History of lithotripsy History of oophorectomy History of tonsillectomy History of ureter stent Hx of colonoscopy History of Problems with Anesthesia: No Social History Social History Housing: House Alcohol intake: current Alcohol intake frequency: does not drink Patient Tobacco Use Status: Former Tobacco user Quit Date: 2003 Tobacco use type: Cigarette e-Cigarette/Vaping Use: Never Used Are you DNR?: No Advance Directives: No Advance Directives Information Provided: Yes 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 occupational 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 Cognitive needs: No Hearing needs: No Vision needs: Yes Meds Allergies Allergy/AdvReac Type Severity Reaction Status Date / Time clavulanic acid AdvReac Mild Irritable Verified 06/28/22 12:30 [From AUGMENTIN] Exam Airway Mallampati Class: II TM Dist: >3cm Neck ROM: Full Loose/Missing/Broken Teeth: No Heart: [id number] Lungs: cta b/l Assessment and Plan Assessment Anesthesia Assessment: Anesthesia Plan Discussed Final Anesthetic Review Family History of Problems with Anesthesia: No History of Problems with Anesthesia: No NPO: Yes ASA Class: II Final Preanesthetic Review: No Changes in Pt Med Stat, Meds/Allgs Chart Reviewed, Consent Obtained/Reviewed and Anes Risks/Benef Reviewed Patient Risk: Intermediate Procedure Risk: Intermediate Assessment/Block/Sedation in SS: Assess/Block/Sedation-SS Anesthetic Plan Anesthetic Plan: MAC: and Agree w/ Assess. and Plan Disposition: Standard PACU
[2022-07-30 08:56] VITALS: BP 161/85; PULSE 73; RESP 16; TEMP 36.6; O2SAT 97
--- NOTE | 2022-07-30 09:00 | MHC.SHP ---
Pre-Procedural Eval Section A Date of Service: 07/30/22 Section B Chief Complaint: hx of polyps Relevant Family History (Specify if Yes): No Relevant Social History: None Present Medications: see Short Stay Collaborative assessment Medical History: Significant History (Anxiety, generalized Essential hypertension Fear of flying History of renal calculi Migraine headache Obesity) History of Previous Operations: Relevant previous surgery/procedure and date(s) (History of appendectomy History of section History of cystoscopy History of knee surgery History of lithotripsy History of oophorectomy History of tonsillectomy History of ureter stent Hx of colonoscopy) Allergies: Allergies Allergy/AdvReac Type Severity Reaction Status Date / Time clavulanic acid AdvReac Mild Irritable Verified 06/28/22 12:30 [From AUGMENTIN] Review of Systems Sugical H&P ROS: Negative: Constitution, Cardiovascular, Respiratory, Neurological, Psychiatric, Hem-Onc, Allergic/Immunologic, Gastrointestinal, Genitourinary, Musculoskeletal, Integumentary, Endocrine and Eyes/Ears/Nose/Throat Exam Surgical H&P Exam: Normal: HEENT, Normal: Heart, Normal: Lungs, Normal: Extremities, Normal: Abdomen, Normal: Skin and Normal: Neurological Plan Diagnosis/Plan: Unchanged I have reviewed the history and physical and performed a pertinent physical examination on my patient. No changes have occurred unless specified. Time Spent With Patient Time: Total time managing care of this patient today ____ minutes.
[2022-07-30] MEDS: Lactated Ringers 1,000 ML 100 ML IVCONT (09:23)
--- NOTE | 2022-07-30 09:36 | P.OP_ITS ---
Operative Note Operative Note Date of Service: 07/30/22 Narrative: Operative Information Procedure Description: Colonoscopy Indication: Hx of colon polyps Anesthesia: MAC COLONOSCOPY Instrument: Olympus variable stiffness pediatric scope 190L Colonoscopy Monitoring: Vital signs and clinical assessment, continuous EKG monitoring, Pulse oximetry, Carbon Dioxide monitoring and blood pressure monitoring were done throughout the procedure. Colon withdrawal time was 7 minutes. Procedure: The patient was placed in the left lateral decubitis position and pre-procedure medications were administered. After a digital rectal examination of the ano-rectum, the video colonoscope was inserted into the rectum and advanced through the colon to the cecum/TI. The colonoscope was slowly withdrawn in a retrograde panoramic fashion and the colon mucosa was carefully examined including a retroflexed view of the rectum. Findings and interventions are described below. Procedure Difficulty: easy Findings: Terminal Ileum-normal Cecum:normal Ascending Colon: normal Transverse Colon -normal Descending Colon:normal Sigmoid Colon: moderate diverticulosis Rectum: Retroflexion with small internal hemorrhoids, grade I Anorectum - normal Colon preparation: [place] Bowel Preparation Scale Right colon; 3 Transverse colon: 3 Left colon; 3 (0 = Unprepared colon segment with mucosa not seen due to solid stool that cannot be cleared. 1 = Portion of mucosa of the colon segment seen, but other areas of the colon segment not well seen due to staining, residual stool and/or opaque liquid. 2 = Minor amount of residual staining, small fragments of stool and/or opaque liquid, but mucosa of colon segment seen well. 3 = Entire mucosa of colon segment seen well with no residual staining, small fragments of stool or opaque liquid) Impression and Post Procedure Diagnosis: internal hemorrhoids diverticular disease Plan: High fiber diet leaflet Avoid straining at stool, epsom salts and sitz bath, anusol supps or cream Repeat Colonoscopy in 5-7 years due to prior hx of polyps or earlier if clinically indicated Above findings were reviewed with the patient and relevant handouts were provided if indicated.
[2022-07-30 10:09] VITALS: BP 132/69; PULSE 71; RESP 16; TEMP 36.1; O2SAT 97
[2022-07-30 10:24] VITALS: BP 145/85; PULSE 71; RESP 16; TEMP 36.2; O2SAT 96
== END 2022-07-30 11:24 | disposition home or self-care (01) ==
PROVIDERS: PCP Internal Medicine; Visit Provider Internal Medicine Gastroenterology
PROC: 0DJD8ZZ Inspection of Lower Intestinal Tract, Via Natural or Artificial Opening Endoscopic (ICD-10-PCS; CPT 45378; principal; 2022-07-30 10:10)
DX: Z12.11 Encounter for screening for malignant neoplasm of colon (principal); Z86.010 Personal history of colon polyps; K57.30 Diverticulosis of large intestine without perforation or abscess without bleeding; K64.0 First degree hemorrhoids; K21.9 Gastro-esophageal reflux disease without esophagitis; I10 Essential (primary) hypertension; E66.09 Other obesity due to excess calories; Z68.36 Body mass index [BMI] 36.0-36.9, adult; G43.909 Migraine, unspecified, not intractable, without status migrainosus; F41.1 Generalized anxiety disorder; Z88.1 Allergy status to other antibiotic agents; Z87.891 Personal history of nicotine dependence
CPT/HCPCS: 45378

== ENCOUNTER 2022-11-12 06:13 | Outpatient (REF) | payer OTHER, SELFPAY ==
[2022-11-12 12:13] LABS: Estimated Average Glucose 108 mg/dL; Hemoglobin A1c % 5.4 %
[2022-11-12 12:20] LABS: Alanine Aminotransferase 17 U/L (0-31); Albumin Level 4.1 g/dL (3.5-5.0); Alkaline Phosphatase 74 U/L (39-117); Anion Gap 12 (12-20); Aspartate Amino Transferase 12 U/L (5-31); Bilirubin Total 0.5 mg/dL (0.0-1.0); Blood Urea Nitrogen 16 mg/dL (9-16); Calcium 9.3 mg/dL (8.4-10.2); Carbon Dioxide 28 mmol/L (22-29); Chloride 106 mmol/L (96-108); Estimated Glomerular Filt Rate > 60; Glucose Random 125 mg/dL (60-115); Potassium 4.1 mmol/L (3.3-5.1); Sodium 142 mmol/L (135-145); Total Protein 6.3 g/dL (6.5-8.0)
== END 2022-11-12 06:14 | disposition home or self-care (01) ==
LOC: HO.HMGCLDS 06:13
PROVIDERS: PCP Internal Medicine; Visit Provider Internal Medicine
DX: I10 Essential (primary) hypertension (principal); R73.01 Impaired fasting glucose; E66.09 Other obesity due to excess calories
CPT/HCPCS: 36415; 80053; 83036

== ENCOUNTER 2022-11-22 09:52 | Outpatient (REF) | payer OTHER, SELFPAY ==
--- NOTE | ~2022-11-22 | US_ITS ---
EXAMINATION: US ABDOMEN COMPLETE CLINICAL INFORMATION: Right upper quadrant pain. COMPARISON: X-ray abdomen KUB 01/21/2022. Ultrasound kidneys and bladder 01/18/2022. CT abdomen and pelvis 03/02/2021. TECHNIQUE: Real-time imaging of the abdominal viscera. FINDINGS: PANCREAS: Normal. ABDOMINAL AORTA: The proximal, mid, and distal segments are normal in caliber. INFERIOR VENA CAVA: Visualized portions are normal. LIVER: The liver is normal in size. The liver contour is normal. There is diffuse increased liver parenchymal echogenicity. Within the left hepatic lobe, a 1.1 cm benign, simple cyst is seen. There is no intrahepatic biliary duct dilatation seen. GALLBLADDER: A 1.1 cm shadowing gallstone is seen. The gallbladder is physiologically distended. Multiple mobile gallstones are present. No evidence of gallbladder wall thickening or pericholecystic fluid. COMMON BILE DUCT: Normal in caliber measuring 0.4 cm in diameter. RIGHT KIDNEY: At the upper pole, a 5 mm nonobstructing calculus is seen. No hydronephrosis or focal parenchymal lesions. The kidney measures 13.3 cm in maximum dimension. LEFT KIDNEY: There is mild hydronephrosis. At the upper pole, a 9 mm nonobstructing calculus is seen. At the interpolar aspect, 4 mm and 2 mm nonobstructing calculi are seen. No focal parenchymal lesions. The kidney measures 11.8 cm in maximum dimension. SPLEEN: Normal. The spleen measures 12.1 cm in maximum dimension. FREE FLUID: None. US/US abdomen complete IMPRESSION: 1. There is cholelithiasis, without cholecystitis or choledocholithiasis. 2.There is generalized increase in hepatic echotexture, consistent with fatty infiltration or hepatocellular disease. Please correlate clinically. No focal hepatic mass or intrahepatic biliary dilatation is seen. 3. Within the left hepatic lobe, a 1.1 cm benign, simple cyst is seen. 4. There is mild left hydronephrosis. 5. There are nonobstructing renal calculi noted.
== END 2022-11-22 09:53 | disposition home or self-care (01) ==
LOC: HO.HMGCX 09:52
PROVIDERS: PCP Internal Medicine; Visit Provider Internal Medicine
DX: R10.11 Right upper quadrant pain (principal)
CPT/HCPCS: 76700

== ENCOUNTER → 2022-12-20 10:56 | Outpatient (BNVA) | payer OTHER, SELFPAY | PROVIDERS: PCP Internal Medicine; Visit Provider Surgery ==

== ENCOUNTER 2022-12-27 07:25 | Outpatient (REF) | payer OTHER, SELFPAY ==
--- NOTE | ~2022-12-27 | MM_ITS ---
EXAMINATION: MM SCREENING DIGITAL BREAST TOMOSYNTHESIS, BILATERAL CLINICAL INFORMATION: Screening. Asymptomatic. The lifetime risk of breast cancer based on the Tyrer-Cuzick Model is 7%. COMPARISON: Mammography: 12/21/2021, 06/01/2018, 06/23/2017, 05/30/2017 TECHNIQUE: Digital breast tomosynthesis is performed in both the craniocaudal and mediolateral oblique views along with computer-aided detection (CAD). Synthesized 2D images are generated from the tomosynthesis. FINDINGS: There are scattered areas of fibroglandular density (ACR BI-RADS breast composition Category b). Breast tissue composition borders on heterogeneously dense. There are no significant masses, developing density, or abnormal calcifications. There are stable fine tightly grouped calcifications mid posterior outer left breast similar to diagnostic mammography 2017. There is smooth heavily calcified benign nodule again seen anterior left breast. No architectural abnormality. The skin contours are smooth. MM/MM tomosynthesis screening BI IMPRESSION: No mammographic evidence of malignancy. ASSESSMENT: BI-RADS 2: Benign RECOMMENDATION: Routine annual mammography screening. This patient's information was entered into a reminder system with a target due date for their next mammogram.
== END 2022-12-27 07:26 | disposition home or self-care (01) ==
LOC: HO.MAMMO 07:25
PROVIDERS: PCP Internal Medicine; Visit Provider Internal Medicine
DX: Z12.31 Encounter for screening mammogram for malignant neoplasm of breast (principal)
CPT/HCPCS: 77063; 77067

== ENCOUNTER 2023-01-14 10:35 | Inpatient (IN) | payer OTHER, SELFPAY ==
[2023-01-08 11:24] VITALS: BMI 34.3
--- NOTE | 2023-01-10 09:14 | P.CONAN_ITS ---
Documented by User: Viviana Singh NP 01/10/23 09:19 HPI - Anesthesia Eval Consult details Narrative: 57yo F for Cholecystectomy Laparoscopic, poss open s/p Colonoscopy 07/2022 with MAC [facility] Active Problems Active Problems: All Active Problems (Updated 12/20/22 @ 13:16 by Wilfred Madsen MD) Biliary colic (Acute) Hydronephrosis (Acute) Renal calculus, bilateral (Acute) Cholelithiasis (Acute) Major depression, recurrent (Acute) RUQ abdominal pain (Acute) Obesity due to excess calories (Acute) Change in bowel function (Acute) Rectal bleed (Acute) Encounter for routine gynecological examination (Acute) Impaired fasting blood sugar (Acute) Ex-smoker (Acute) Shortness of breath (Acute) Premature atrial contraction (Acute) Encounter for general adult medical examination with abnormal findings (Acute) Breast screening (Acute) Obesity (Acute) Migraine headache (Acute) Anxiety, generalized (Acute) Essential hypertension (Acute) Past Medical History Medical History Anxiety, generalized Essential hypertension Fear of flying History of renal calculi Migraine headache Obesity Family History Family History Father Unknown family medical history Mother COPD (chronic obstructive pulmonary disease) HTN (hypertension) CVD (cardiovascular disease) Son No problems noted. Daughter No problems noted. Other Mental health disorder Family history of problems with anesthesia: No Surgical History Surgical History History of appendectomy History of section History of cystoscopy History of knee surgery History of lithotripsy History of oophorectomy History of tonsillectomy History of ureter stent Hx of colonoscopy History of Problems with Anesthesia: No Social History Social History Household Members: Spouse Housing: House Do you presently have visiting nurse or other home services: No Alcohol intake: current Alcohol intake frequency: does not drink Patient Tobacco Use Status: Never used Tobacco Tobacco use type: Cigarette e-Cigarette/Vaping Use: Never Used Use of substances other than those prescribed or required for medical reasons: No Have you been hit, kicked, punched, or otherwise hurt by someone within the past year? 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 Cognitive needs: No Hearing needs: No Vision needs: Yes Meds Allergies Allergy/AdvReac Type Severity Reaction Status Date / Time clavulanic acid AdvReac Mild Irritable Verified 12/20/22 11:13 [From AUGMENTIN] Exam Exam Date and Time: January 10, 2023 0914 Height,Weight and Vital Signs: Height 5 ft 4 in Weight 90.718 kg Pertinent Lab Results Pertinent Lab Results: Laboratory Tests 12/09/21 11/12/22 08:10 06:23 WBC 6.9 Hgb 12.4 Hct 37.4 Plt Count 254 Sodium 142 Potassium 4.1 Chloride 106 Carbon Dioxide 28 BUN 16 Creatinine 0.84 Narrative Narrative: EKG 10/2021 SR with PACs @ ECHO 02/2022 Conclusions: - 1. Hyperdynamic LV systolic function with LVEF of greater than 70% with grade 1 diastolic dysfunction ? 2. Increased gradient across aortic valve which could suggest? ? early aortic stenosis worse is high stroke volume? 3. No gross pericardial effusion ? ? NM lorene perf SPECT rest & str 02/2022 Impression: ? 1.? Myocardial perfusion imaging study shows normal myocardial perfusion 2.? Gated LVEF is 56% 3. Transient ischemic dilatation not present ? EKG is nondiagnostic for ischemia Assessment and Plan Assessment Anesthesia Assessment: Chart Reviewed Final Anesthetic Review Family History of Problems with Anesthesia: No History of Problems with Anesthesia: No Documented by User: Luke Lux MD 01/13/23 18:00 [facility] Past Medical History Medical History Anxiety, generalized Essential hypertension Fear of flying History of renal calculi Migraine headache Obesity Functional capacity: independent ambulation Family History Family History Father Unknown family medical history Mother COPD (chronic obstructive pulmonary disease) HTN (hypertension) CVD (cardiovascular disease) Son No problems noted. Daughter No problems noted. Other Mental health disorder Surgical History Surgical History History of appendectomy History of section History of cystoscopy History of knee surgery History of lithotripsy History of oophorectomy History of tonsillectomy History of ureter stent Hx of colonoscopy Social History Social History Household Members: Spouse Housing: House Do you presently have visiting nurse or other home services: No Alcohol intake: current Alcohol intake frequency: does not drink Patient Tobacco Use Status: Never used Tobacco Tobacco use type: Cigarette e-Cigarette/Vaping Use: Never Used Use of substances other than those prescribed or required for medical reasons: No Have you been hit, kicked, punched, or otherwise hurt by someone within the past year? 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 Cognitive needs: No Hearing needs: No Vision needs: Yes Meds Allergies Allergy/AdvReac Type Severity Reaction Status Date / Time clavulanic acid AdvReac Mild Irritable Verified 12/20/22 11:13 [From AUGMENTIN] Exam Airway Mallampati Class: IV TM Dist: >3cm Neck ROM: Full Loose/Missing/Broken Teeth: Yes (poor dentition , multiple chipped teeth ) Assessment and Plan Assessment Anesthesia Assessment: Anesthesia Plan Discussed Final Anesthetic Review NPO: Yes ASA Class: III Final Preanesthetic Review: Meds/Allgs Chart Reviewed, Consent Obtained/Reviewed and Anes Risks/Benef Reviewed Patient Risk: Intermediate Procedure Risk: Intermediate Anesthetic Plan Anesthetic Plan: GA and Agree w/ Assess. and Plan Disposition: Standard PACU
[2023-01-13] VITALS (29 sets, daily range): BP systolic 146–188; BP diastolic 73–121; PULSE 67–136; RESP 14–20; TEMP 36.3–37.1; O2SAT 94–98; BMI 34.3; BMI 35.5
--- NOTE | 2023-01-13 | ECG_ITS ---
Test Reason : postop Blood Pressure : / mmHG Vent. Rate : 135 BPM Atrial Rate : 000 BPM P-R Int : 000 ms QRS Dur : 080 ms QT Int : 284 ms P-R-T Axes : 000 045 -82 degrees QTc Int : 426 ms Atrial fibrillation with rapid ventricular response Nonspecific ST and T wave abnormality Abnormal ECG When compared with ECG of 26-OCT-2021 18:22, Atrial fibrillation has replaced Sinus rhythm Vent. rate has increased BY 59 BPM Nonspecific T wave abnormality, worse in Inferior leads Nonspecific T wave abnormality now evident in Lateral leads Referred By: Luke Lux Electronically Signed By:Marcos Mora
[2023-01-13] MEDS: Lactated Ringers 1,000 ML 100 ML IVCONT (08:43)
--- NOTE | 2023-01-13 09:32 | MHC.SHP ---
Pre-Procedural Eval Section A Date of Service: 01/13/23 The patient is an INPATIENT: No Changes since office visit: Yes Patient answered all questions; No Cold of Flu in the past 2 weeks, No New Medical Problems and No Changes in Medication The History & Physical has been completed within 30 days and I have reviewed it.: Yes Section B Chief Complaint: Calculus of bile duct without cholangitis or gabriella Allergies: Allergies Allergy/AdvReac Type Severity Reaction Status Date / Time clavulanic acid AdvReac Mild Irritable Verified 12/20/22 11:13 [From AUGMENTIN] Plan Diagnosis/Plan: Unchanged I have reviewed the history and physical and performed a pertinent physical examination on my patient. No changes have occurred unless specified. Time Spent With Patient Time: Total time managing care of this patient today ____ minutes.
--- NOTE | 2023-01-13 10:59 | P.OP_ITS ---
Operative Note Operative Note Date of Service: 01/13/23 Narrative: Preoperative diagnosis: Biliary colic, gallstones Postoperative diagnosis: Same Procedure: Laparoscopic cholecystectomy Surgeon: Wilfred Madsen MD Conservation Enforcement Officer: JESSICA Mitchell Anesthesia: General endotracheal Indications for procedure: 57-year-old female patient with complaints of episodes of abdominal pain in the right upper quadrant and epigastrium found to have gallstones within the gallbladder Operative findings: minimally inflamed gallbladder with gallstones Specimen: gallbladder Estimated blood loss: 2 mL Complications: none Procedure details: Patient was brought to the OR and placed in a supine position. After administering general anesthesia the patient's abdomen was prepped with ChloraPrep and draped in a sterile fashion. Local anesthesia consisting of 0.5% Sensorcaine with epinephrine was infiltrated in a periumbilical region. A 5 mm incision was made above the umbilicus in a transverse fashion. The Veress needle was then inserted while elevating abdominal cavity with towel clips. After positive drop test the abdomen was insufflated to a pressure of 15 mm of mercury. The Veress needle was then removed and a 5 mm trocar inserted. The camera was inserted in the abdomen explored. A 12 mm trocar was then placed in the epigastrium. Two 5 mm trocars placed in the right upper quadrant by the physical therapy assistant. The patient was placed in reverse Trendelenburg positioning and rotated to the left. The gallbladder was grasped with the fundus and retracted cephalad by the physical therapy assistant. The infundibulum was then grasped and retracted away from the liver bed, also by the physical therapy assistant. The Dolphin dissected was then used by the surgeon to dissect the peritoneum off the infundibulum to reveal the junction with the cystic duct. Cystic artery was noted slightly medial and posterior to the cystic duct. After obtaining a critical view the cystic duct was doubly clipped and divided. The cystic artery was then doubly clipped and divided. The gallbladder was then dissected off the liver bed using electrocautery with an L hook. Hemostasis was assured all times using the electrocautery. When the gallbladder is completely dissected off the liver bed was placed in an Endo-Catch bag and brought out through the epigastric incision. The gallbladder was sent to pathology for further examination. The abdomen was then re-examined. The liver bed was irrigated and suctioned dry. No bleeding or bile leak could be identified. CO2 was then evacuated and all trocars removed. Fascia was closed at the epigastric incision using a [id number] 0 Polysorb suture. Skin was closed in all incisions using a subcuticular 4 0 Polysorb suture by both the surgeon and physical therapy assistant. Sterile dressings consisting of Steri-Strips, 2 x 2 gauze, and Tegaderm were then applied. The patient tolerated the procedure well. Sponge instrument and needle counts reported as correct. The patient was transferred to PACU in stable condition.
[2023-01-13] MEDS: Metoprolol Tartrate 5 MG/5 ML VIAL IVPUSH (12:00)
[2023-01-13] MEDS: HYDROmorphone HCl 0.5 MG/0.5 ML SYRINGE 0.25 MG IVPUSH (12:04)
[2023-01-13] MEDS: dilTIAZem HCL 125 MG in 0.9 % Sodium Chloride 100 ML 10 MG IVCONT (12:40)
--- NOTE | 2023-01-13 13:47 | PM.CNCAR ---
History of Present Illness History of Present Illness Date of Service: 01/13/23 Requesting physician: Luke Lux Chief complaint: Post op, Afib Narrative: 57-year-old female who is here for cholecystectomy and developed atrial fibrillation with rapid ventricular response after surgery. During the procedure she had some runs of narrow complex tachycardia and see beta-blockers and broke out of the rhythm but postop she was noticed to be persistent tachycardia an EKG has confirmed AFib with RVR. She is completely asymptomatic currently. She has background history of COPD and hypertension. She has been taking lisinopril at nighttime which she took last night. Her blood pressure was also noticed to be significantly elevated. She is denying any chest discomfort currently. She has no palpitations. She is saying she is anxious with the mask on her face as she has claustrophobia. As mentioned she was given IV beta blockers during the surgery and is going to get some more IV metoprolol 5 mg soon. FORMERLY [facility], [facility] Past Medical History Medical History Anxiety, generalized Essential hypertension Fear of flying History of renal calculi Migraine headache Obesity Functional capacity: independent ambulation Family History Family History Father Unknown family medical history Mother COPD (chronic obstructive pulmonary disease) HTN (hypertension) CVD (cardiovascular disease) Son No problems noted. Daughter No problems noted. Other Mental health disorder Surgical History Surgical History History of appendectomy History of section History of cystoscopy History of knee surgery History of lithotripsy History of oophorectomy History of tonsillectomy History of ureter stent Hx of colonoscopy Social History Social History Housing: House Alcohol intake: current Alcohol intake frequency: does not drink Patient Tobacco Use Status: Former Tobacco user Quit Date: 15 years Tobacco use type: Cigarette e-Cigarette/Vaping Use: Never Used Use of substances other than those prescribed or required for medical reasons: No Are you DNR?: No Advance Directives: No Advance Directives Information Provided: Yes Current occupational 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 Cognitive needs: No Hearing needs: No Vision needs: Yes Meds Allergies Allergy/AdvReac Type Severity Reaction Status Date / Time clavulanic acid AdvReac Mild Irritable Verified 12/20/22 11:13 [From AUGMENTIN] Active Medications: Current Medications Fentanyl (Fentanyl Citrate/Pf 100 Mcg/2 Ml Vial) 25 mcg IVPUSH Q5M PRN; Protocol PRN Reason: Pain, Moderate(Pain Scale 4-6) Hydromorphone HCl (Hydromorphone Hcl 0.5 Mg/0.5 Ml Syringe) 0.25 mg IVPUSH Q5M PRN; Protocol PRN Reason: Pain, Severe (Pain Scale 7-10) Last Admin: 01/13/23 12:04 Dose: 0.25 mg Lactated Ringer's (Lr) 1,000 mls @ 100 mls/hr IVCONT .Q10H [facility] Last Admin: 01/13/23 08:43 Dose: 100 mls/hr Diltiazem HCl 125 mg/ Sodium (Chloride) 125 mls @ 0 mls/hr IVCONT .Q0M [facility]; Protocol Last Admin: 01/13/23 12:40 Dose: 10 mg/hr, 10 mls/hr Physical Exam Vital Signs: Vital Signs: Last Vital Signs Temp 98.7 F 01/13/23 11:39 Pulse 80 01/13/23 12:50 Resp 16 01/13/23 12:50 BP 156/91 H 01/13/23 12:50 Pulse Ox 96 01/13/23 12:50 O2 Del Method Nasal Cannula 01/13/23 12:50 O2 Flow Rate 4 01/13/23 12:50 BMI result Body Mass Index 34.3 GENERAL APPEARANCE: in no acute distress, pleasant. NECK: no carotid bruit, no jugular venous distention. SKIN: no suspicious lesions, warm and dry. HEART: no murmurs,irregular rate and rhythm. Tachycardic. LUNGS: clear to auscultation bilaterally. EXTREMITIES: no edema. PERIPHERAL PULSES: equal. NEUROLOGIC: No gross deficits, AAO X 3 Assessment and Plan (1) Essential hypertension: Status: Acute (2) PAF (paroxysmal atrial fibrillation): Status: Acute Plan Pleasant 57-year-old female who is here for cholecystectomy and developed AFib with RVR the postop period. She is asymptomatic. Not volume overloaded. Agree with IV metoprolol. If she is in persistent atrial fibrillation then can be started on Cardizem drip for now. Her chads Vasc score is 2 based on her gender and hypertension history. I do not think she needs anticoagulation right away but she may need discussion about anticoagulation if she is in persistent atrial fibrillation. Resume lisinopril 30 mg orally if she can tolerate p.o.. We will follow along with you. Thank you for allowing me to participate in the care of your patient. Please feel free to contact me if you have any questions. Time Spent With Patient Time: Total time managing care of this patient today ____ minutes. Procedures Date of Service Date of Service: 01/13/23
[2023-01-13] MEDS: fentaNYL citrate/PF 100 MCG/2 ML VIAL 25 MCG IVPUSH (14:01)
[2023-01-13] MEDS: oxyCODONE HCl Immed Release 5 MG TABLET PO ×2 (14:04→17:41)
[2023-01-13] MEDS: hydrALAZINE HCl 20 MG/ML VIAL 5 MG IVPUSH (14:04)
--- NOTE | 2023-01-13 14:43 | PHA.MEDREC ---
Pharmacy Consult ? Medication Reconciliation Pharmacy has completed the medication reconciliation. Reviewed med rec done by nursing
[2023-01-13] MEDS: ondansetron HCL 4 MG/2 ML VIAL IVPUSH (17:38)
[2023-01-13] MEDS: 0.9 % Sodium Chloride Flush 3 ML SYRINGE IVFLUSH (17:38)
--- NOTE | 2023-01-13 17:42 | P.CONIM_ITS ---
History of Present Illness Data of Consult Service Date: 01/13/23 Primary Care Provider: Maria Isabel Avendano MD [facility] Reason for consult: New onset atrial fibrillation A 57 years old lady with PMH of HTN, anxiety, COPD among others who presented for elective Lap Mikayla. complicated by new onset Afib w RvR while in recovery. started on Cardizem drip as MEtoprolol IV did not control her symptoms with converting back to sinus rhythm. Denies any SOB, chest pain, palpitations, nausea, weakness or lightheadedness. Also noted to have elevated BP readings .Hospitalist team asked to evaluate the patient and monitor her during the hospital stay. Review of Systems Review of Systems: No fever, chills or weakness No chest pain, palpitation No shortness of breath or coughing No abdominal pain, nausea or vomiting No urinary symptoms No any rash or wounds PMFSH Medical History Anxiety, generalized Essential hypertension Fear of flying History of renal calculi Migraine headache Obesity Functional capacity: independent ambulation Family History Father Unknown family medical history Mother COPD (chronic obstructive pulmonary disease) HTN (hypertension) CVD (cardiovascular disease) Son No problems noted. Daughter No problems noted. Other Mental health disorder Surgical History History of appendectomy History of section History of cystoscopy History of knee surgery History of lithotripsy History of oophorectomy History of tonsillectomy History of ureter stent Hx of colonoscopy Social History Household Members: Spouse Housing: House Do you presently have visiting nurse or other home services: No Alcohol intake: current Alcohol intake frequency: does not drink Patient Tobacco Use Status: Never used Tobacco Tobacco use type: Cigarette e-Cigarette/Vaping Use: Never Used Use of substances other than those prescribed or required for medical reasons: No Have you been hit, kicked, punched, or otherwise hurt by someone within the past year? 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 Cognitive needs: No Hearing needs: No Vision needs: Yes Meds Allergies Allergy/AdvReac Type Severity Reaction Status Date / Time clavulanic acid AdvReac Mild Irritable Verified 12/20/22 11:13 [From AUGMENTIN] Active Medications: Current Medications Acetaminophen (Acetaminophen 325 Mg Tablet) 650 mg PO Q6H PRN PRN Reason: Pain, Mild (Pain Scale 1-3) Albuterol Sulfate (Albuterol Sulfate 90 Mcg 8 Gm Inhaler) 2 puff INHALE Q4H PRN PRN Reason: shortness of breath or wheezing Buspirone HCl (Buspirone Hcl 5 Mg Tablet) 5 mg PO TID PRN PRN Reason: anxiety Escitalopram Oxalate (Escitalopram Oxalate 10 Mg Tablet) 10 mg PO DAILY [facility] Heparin Sodium (Porcine) (Heparin Sodium,Porcine 5,000 Unit/Ml Vial) 5,000 unit SUBCUT Q12H [facility] Hydromorphone HCl (Hydromorphone Hcl 1 Mg/Ml Syringe) 0.5 mg IVPUSH Q4H PRN; Protocol PRN Reason: Pain, Severe (Pain Scale 7-10) Dextrose/Lactated Ringer's (D5lr) 1,000 mls @ 50 mls/hr IVCONT .Q20H [facility] Last Admin: 01/13/23 17:36 Dose: Not Given Lisinopril (Lisinopril 10 Mg Tablet) 30 mg PO DAILY [facility]; Protocol Ondansetron HCl (Ondansetron Hcl 4 Mg/2 Ml Vial) 4 mg IVPUSH QID PRN PRN Reason: Nausea Last Admin: 01/13/23 17:38 Dose: 4 mg Oxycodone HCl (Oxycodone Hcl Immed Release 5 Mg Tablet) 5 mg PO Q6H PRN PRN Reason: Pain, Mild (Pain Scale 1-3) Last Admin: 01/13/23 17:41 Dose: 5 mg Sodium Chloride (0.9 % Sodium Chloride Flush 3 Ml Syringe) 3 ml IVFLUSH QSHIFT [facility] Last Admin: 01/13/23 17:38 Dose: 3 ml Physical Exam Vital Signs and Narrative: Vital Signs: Last Vital Signs Temp 97.3 F 01/13/23 16:46 Pulse 80 01/13/23 16:46 Resp 15 01/13/23 16:46 BP 164/92 H 01/13/23 16:46 Pulse Ox 95 01/13/23 16:46 O2 Del Method Room Air 01/13/23 16:46 O2 Flow Rate 2 01/13/23 15:00 BMI result Body Mass Index 35.5 Const: Other: Constitutional : Awake, interactive, not in distress Neck : Normal inspection, Supple Cardiovascular : RRR, no JVP, no lower extremity edema Respiratory : good bilateral air entry, no crackles, wheezes or rhonchi Gastrointestinal: soft, lax, Normal bowel sounds, slightly tender at site of surgery, covered with dressing Skin : Warm, Dry Neurological : Alert & oriented x3, No focal deficit Assessment and Plan (1) PAF (paroxysmal atrial fibrillation): Status: Acute (2) Essential hypertension: Status: Acute Plan A 57 years old lady with PMH of HTN, anxiety, COPD among others who presented for elective Lap Mikayla. complicated by new onset Afib w RvR while in recovery. New onset atrial fibrillation back to sinus Cardizem PRN if back to rvr CHADVASC of 2, Cardiology saw her and holding on AC at this stage Keep on Tele HTN, elevated Restart home Lisinopril Thank you for the consult will continue to monitor overnight Time Spent With Patient Time: Total time managing care of this patient today ____ minutes.
[2023-01-13] MEDS: lisinopriL 10 MG TABLET 30 MG PO (18:16)
[2023-01-13] MEDS: Ondansetron ODT 4 MG TAB.RAPDIS TRANSLINGU (23:37)
--- NOTE | 2023-01-14 02:08 | PC.NURSE ---
01/13/23 6551; patient lost iv access, refusing to have another iv placed at this time. Patient reports been having intermittent nausea and vomiting bile. Patient asking if she could get by mouth medication for nausea. Dr. Cook notified. Order for zofran translingual
[2023-01-14 03:40] VITALS: BP 164/86; PULSE 85; RESP 20; TEMP 36.7; O2SAT 92
[2023-01-14] MEDS: Ondansetron ODT 4 MG TAB.RAPDIS TRANSLINGU ×2 (04:42→09:28)
--- NOTE | 2023-01-14 05:00 | ECG_ITS ---
Test Reason : afib after procedure Blood Pressure : / mmHG Vent. Rate : 078 BPM Atrial Rate : 078 BPM P-R Int : 158 ms QRS Dur : 080 ms QT Int : 390 ms P-R-T Axes : 077 027 062 degrees QTc Int : 444 ms Normal sinus rhythm Normal ECG When compared with ECG of 13-JAN-2023 11:40, Sinus rhythm has replaced Atrial fibrillation Vent. rate has decreased BY 57 BPM Nonspecific T wave abnormality, improved in Inferior leads Nonspecific T wave abnormality no longer evident in Anterolateral leads Referred By: Wilfred Madsen Electronically Signed By:Marcos Mora
[2023-01-14 06:57] LABS: MANUAL DIFF FLAG NO
[2023-01-14 07:02] LABS: Basophils Percent Auto 0.2 % (0-2); Eosinophils Percent Auto 0.1 % (0-4); Hematocrit 39.7 % (37.0-47.0); Hemoglobin 13.5 g/dl (12.0-16.0); Imm Gran Abs Auto 0.07 X10*3/uL (0.00-0.03); Imm Gran Pct Auto 0.6 % (0.0-0.4); Lymphocytes Absolute Auto 1.6 X10*3/uL (1.2-4.9); Lymphocytes Percent Auto 13.2 % (20-40); Mean Corpuscular Hemoglobin 28.1 pg (27.0-33.0); Mean Corpuscular Volume 82.7 fL (80.0-98.0); Mean Platelet Volume 9.2 fL (9.4-12.3); Monocytes Percent Auto 8.1 % (2-11); Neutrophils Absolute Auto 9.4 x10*3/uL (2.0-8.3); Neutrophils Percent Auto 77.8 % (45-73); Platelet Count 250 X10*3/uL (160-400); Red Cell Distribution Width 13.2 % (11.0-16.0); White Blood Count 12.1 X10*3/uL (4.8-10.8)
[2023-01-14 07:31] VITALS: BP 154/84; PULSE 81; RESP 18; TEMP 36.9; O2SAT 94
[2023-01-14 07:35] LABS: Anion Gap 14 (12-20); Blood Urea Nitrogen 14 mg/dL (9-16); Calcium 9.7 mg/dL (8.4-10.2); Carbon Dioxide 30 mmol/L (22-29); Chloride 102 mmol/L (96-108); Estimated Glomerular Filt Rate > 60; Glucose Random 136 mg/dL (60-115); Sodium 142 mmol/L (135-145)
--- NOTE | 2023-01-14 08:48 | PM.PNGS ---
Subjective Subjective Date of Service: 01/14/23 Interval history: Admitted following lap gabriella for new onset A fib with RVR. Feels ok this morning, has had persistent nausea and vomiting. Reports longer episodes in between emesis now. Tolerating ice chips. OOB without difficulty. Denies significant pain and is not needing any analgesics. Denies CP, palpations, SOB. Physical Exam Vital Signs: Vital Signs: Last Vital Signs Temp 98.4 F 01/14/23 07:31 Pulse 81 01/14/23 07:31 Resp 18 01/14/23 07:31 BP 154/84 H 01/14/23 07:31 Pulse Ox 94 01/14/23 07:31 O2 Del Method Room Air 01/14/23 07:31 O2 Flow Rate 2 01/13/23 15:00 BMI result Body Mass Index 35.5 Const: General: comfortable, no acute distress and alert Orientation/consciousness: patient oriented x3 Resp: Effort & Inspection: normal respiratory effort Cardio: Rate: regular rate Rhythm: regular rhythm GI: Inspection: No distended and Yes incision (dressings c/d/i) Palpation (GI): Soft to palpation, Tenderness to palpation present (GI) (mild incisional), no guarding and not rigid Percussion: Yes normal to percussion Skin: General skin exam: no rashes or lesions noted Neuro: General: patient oriented x3 and moves all extremities Objective Data Active Medications Acetaminophen (Acetaminophen 325 Mg Tablet) 650 mg PO Q6H PRN PRN Reason: Pain, Mild (Pain Scale 1-3) Buspirone HCl (Buspirone Hcl 5 Mg Tablet) 5 mg PO TID PRN PRN Reason: anxiety Diltiazem HCl (Diltiazem Hcl 50 Mg/10 Ml Vial) 10 mg IVPUSH ONCE PRN PRN Reason: Afib w Rapid ventricular response HR>110 Escitalopram Oxalate (Escitalopram Oxalate 10 Mg Tablet) 10 mg PO DAILY [facility] Heparin Sodium (Porcine) (Heparin Sodium,Porcine 5,000 Unit/Ml Vial) 5,000 unit SUBCUT Q12H [facility] Hydromorphone HCl (Hydromorphone Hcl 1 Mg/Ml Syringe) 0.5 mg IVPUSH Q4H PRN; Protocol PRN Reason: Pain, Severe (Pain Scale 7-10) Dextrose/Lactated Ringer's (D5lr) 1,000 mls @ 50 mls/hr IVCONT .Q20H [facility] Last Admin: 01/13/23 17:36 Dose: Not Given Documented By: NYDIA Non-Admin Reason: Not In Room Levalbuterol HCl (Levalbuterol Hcl 1.25 Mg/3 Ml Vial.Neb) 1.25 mg INHALE Q3H PRN PRN Reason: Shortness of Breath/Wheezing Lisinopril (Lisinopril 10 Mg Tablet) 30 mg PO DAILY [facility]; Protocol Last Admin: 01/13/23 18:16 Dose: 30 mg Documented By: NYDIA Ondansetron HCl (Ondansetron Odt 4 Mg Tab.Rapdis) 4 mg TRANSLINGU Q6H PRN PRN Reason: Nausea and Vomiting Oxycodone HCl (Oxycodone Hcl Immed Release 5 Mg Tablet) 5 mg PO Q6H PRN PRN Reason: Pain, Mild (Pain Scale 1-3) Last Admin: 01/13/23 17:41 Dose: 5 mg Documented By: NYDIA Sodium Chloride (0.9 % Sodium Chloride Flush 3 Ml Syringe) 3 ml IVFLUSH QSHIFT [facility] Last Admin: 01/14/23 01:05 Dose: Not Given Documented By: LALI Non-Admin Reason: No Access Labs 01/14/23 06:34 01/14/23 06:34 Labs: Laboratory Results - last 24 hr 01/14/23 01/14/23 06:34 06:34 MCV 82.7 MCH 28.1 MCHC 34.0 RDW 13.2 Plt Count 250 MPV 9.2 L Immature Gran % (Auto) 0.6 H Neut % (Auto) 77.8 H Lymph % (Auto) 13.2 L [place] % (Auto) 8.1 Eos % (Auto) 0.1 Baso % (Auto) 0.2 Lymph # (Auto) 1.6 [place] # (Auto) 1.0 Eos # (Auto) 0.0 Baso # (Auto) 0.0 Abs Immat Gran (auto) 0.07 H Absolute Neuts (auto) 9.4 H Absolute Nucleated RBC 0.000 Nucleated RBC % (auto) 0.0 Anion Gap 14 Estim Creat Clear Calc 83.0 Estimated GFR > 60 Random Glucose 136 H Calcium 9.7 Procedures Date of Service Date of Service: 01/14/23 Progress Note: A&P Assessment and plan (1) PAF (paroxysmal atrial fibrillation): Status: Acute (2) S/P laparoscopic cholecystectomy: Status: Acute Plan 57 year old female POD #1 s/p lap gabriella with recovery complicated by new onset Afib w RvR while in recovery. Has nausea/vomiting post operatively, likely due to anesthesia. Slowly improving. Cont zofran ODT PRN. Diet as tolerated. Will keep for observation until able to tolerate solid diet. Patient comfortable with plan. A Fib- Remains in sinus. Cardiology saw her and holding on AC at this stage. Hospitalists following- diltiazem PRN for RVR. Time Spent With Patient Time: Total time managing care of this patient today ____ minutes. Quality Stroke Does the patient have a stroke diagnosis?: No VTE Prior VTE?: No VTE Risk Level:: Surgical - moderate VTE Device Contraindication: N/A - Device Ordered VTE Drug Contraindication: N/A - Med Ordered
[2023-01-14] MEDS: Escitalopram Oxalate 10 MG TABLET PO (09:23)
[2023-01-14] MEDS: lisinopriL 10 MG TABLET 30 MG PO (09:23)
[2023-01-14 11:45] VITALS: BP 170/81; PULSE 80; RESP 16; TEMP 36.6; O2SAT 93
--- NOTE | 2023-01-14 12:31 | PM.PNCARD ---
Subjective Subjective Date of Service: 01/14/23 Interval history: Seen and examined at bedside Some abdominal pain and nausea. In Sinus rhythm. Physical Exam Vital Signs: Last Vital Signs Temp 98 F 01/14/23 11:45 Pulse 80 01/14/23 11:45 Resp 16 01/14/23 11:45 BP 170/81 H 01/14/23 11:45 Pulse Ox 93 01/14/23 11:45 O2 Del Method Room Air 01/14/23 11:45 O2 Flow Rate 2 01/13/23 15:00 BMI result Body Mass Index 35.5 GENERAL APPEARANCE: in no acute distress, pleasant. NECK: no carotid bruit, no jugular venous distention. SKIN: no suspicious lesions, warm and dry. HEART: no murmurs, regular rate and rhythm. LUNGS: clear to auscultation bilaterally. EXTREMITIES: no edema. PERIPHERAL PULSES: equal. NEUROLOGIC: No gross deficits, AAO X 3 Objective Labs and Meds 01/14/23 06:34 01/14/23 06:34 Lab results: Laboratory Results - last 24 hr 01/14/23 01/14/23 06:34 06:34 WBC 12.1 H RBC 4.80 Hgb 13.5 Hct 39.7 MCV 82.7 MCH 28.1 MCHC 34.0 RDW 13.2 Plt Count 250 MPV 9.2 L Immature Gran % (Auto) 0.6 H Neut % (Auto) 77.8 H Lymph % (Auto) 13.2 L [place] % (Auto) 8.1 Eos % (Auto) 0.1 Baso % (Auto) 0.2 Lymph # (Auto) 1.6 [place] # (Auto) 1.0 Eos # (Auto) 0.0 Baso # (Auto) 0.0 Abs Immat Gran (auto) 0.07 H Absolute Neuts (auto) 9.4 H Absolute Nucleated RBC 0.000 Nucleated RBC % (auto) 0.0 Sodium 142 Potassium 4.0 Chloride 102 Carbon Dioxide 30 H Anion Gap 14 BUN 14 Creatinine 0.82 Estim Creat Clear Calc 83.0 Estimated GFR > 60 Random Glucose 136 H Calcium 9.7 Progress Note: A&P Assessment and plan (1) PAF (paroxysmal atrial fibrillation): Status: Acute Plan Pleasant 57-year-old female who is status post cholecystectomy and developed paroxysmal atrial fibrillation. She is back in sinus rhythm at this point. Pressure is elevated. Adding carvedilol 6.25 mg b.i.d.. Continue lisinopril. We discussed about anticoagulation. She has chads Vasc score of 2 based on gender and history of hypertension. She did not have a long episode of atrial fibrillation. This was also in the perioperative period. After discussion we have decided to a cardiac event monitor as outpatient to see AFib burden and decide about anticoagulation based on that. Thank you for allowing me to participate in the care of your patient. Please feel free to contact me if you have any questions. Time Spent With Patient Time: Total time managing care of this patient today ____ minutes. Progress Note: Quality Stroke Does the patient have a stroke diagnosis?: No Procedures Date of Service Date of Service: 01/14/23
--- NOTE | 2023-01-14 13:02 | MHC.CM.PN ---
CM met with Patient at bedside. 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 Home/self care is the goal and CM has initiated and will follow for dc planning. Patient has received [employer] vax x2 and her PCP is Dr. Maria Isabel Avendano. Patient is functionally independent and working.
--- NOTE | 2023-01-14 13:45 | HO.POSTANES ---
Post Anesthesia Evaluation Post Anesthesia Evaluation Date of Service: 01/14/23 Vital Signs: Vital Signs Temp Pulse Resp BP Pulse Ox O2 Del Method 01/14/23 11:45 98 F 80 16 170/81 H 93 Room Air 01/14/23 07:31 98.4 F 81 18 154/84 H 94 Room Air 01/14/23 03:40 98.1 F 85 20 164/86 H 92 Room Air Anesthesia: General Endotracheal-GETA Mental Status: Awake Pain Control: Satisfactory Nausea/Vomiting: Severe Hydration: Adequate Anesthesia-Related Issues: No Anes. Related Issues
[2023-01-14 15:05] VITALS: BP 160/94; PULSE 83; RESP 14; TEMP 36.4; O2SAT 95
[2023-01-14 19:03] VITALS: BP 156/88; PULSE 87; RESP 14; TEMP 36.1; O2SAT 94
[2023-01-14] MEDS: carvediloL 6.25 MG TABLET PO (20:30)
[2023-01-14 23:22] VITALS: BP 134/82; PULSE 82; RESP 16; TEMP 37.2; O2SAT 92
[2023-01-15 03:27] VITALS: BP 139/72; PULSE 77; RESP 18; TEMP 36.8; O2SAT 94
[2023-01-15] MEDS: Acetaminophen 325 MG TABLET 650 MG PO ×2 (03:28→09:41)
[2023-01-15 07:36] VITALS: BP 143/73; PULSE 73; RESP 20; TEMP 36.6; O2SAT 91
[2023-01-15] MEDS: Escitalopram Oxalate 10 MG TABLET PO (07:39)
[2023-01-15] MEDS: lisinopriL 10 MG TABLET 30 MG PO (07:40)
[2023-01-15] MEDS: carvediloL 6.25 MG TABLET PO (07:41)
--- NOTE | 2023-01-15 10:40 | PM.PNGS ---
Subjective Subjective Date of Service: 01/15/23 Interval history: Feels much better this morning. Reports some pain under right rib that radiates to right shoulder. COmfortable with tylenol. Tolerating solid diet without nausea or vomiting. Wants to go home. Physical Exam Vital Signs: Vital Signs: Last Vital Signs Temp 97.8 F 01/15/23 07:36 Pulse 73 01/15/23 07:36 Resp 20 01/15/23 07:36 BP 143/73 H 01/15/23 07:36 Pulse Ox 91 L 01/15/23 07:36 O2 Del Method Room Air 01/15/23 07:36 O2 Flow Rate 2 01/13/23 15:00 BMI result Body Mass Index 35.5 Const: General: comfortable, no acute distress and alert Orientation/consciousness: patient oriented x3 Resp: Effort & Inspection: normal respiratory effort Cardio: Rate: regular rate Rhythm: regular rhythm GI: Inspection: No distended and Yes incision (clean) Palpation (GI): Soft to palpation, Tenderness to palpation present (GI) (very mild), no guarding and not rigid Skin: General skin exam: no rashes or lesions noted Neuro: General: patient oriented x3 and moves all extremities Objective Data Active Medications Acetaminophen (Acetaminophen 325 Mg Tablet) 650 mg PO Q6H PRN PRN Reason: Pain, Mild (Pain Scale 1-3) Last Admin: 01/15/23 09:41 Dose: 650 mg Documented By: SOBEIDA Buspirone HCl (Buspirone Hcl 5 Mg Tablet) 5 mg PO TID PRN PRN Reason: anxiety Carvedilol (Carvedilol 6.25 Mg Tablet) 6.25 mg PO BID [facility]; Protocol Last Admin: 01/15/23 07:41 Dose: 6.25 mg Documented By: SOBEIDA Diltiazem HCl (Diltiazem Hcl 50 Mg/10 Ml Vial) 10 mg IVPUSH ONCE PRN PRN Reason: Afib w Rapid ventricular response HR>110 Escitalopram Oxalate (Escitalopram Oxalate 10 Mg Tablet) 10 mg PO DAILY [facility] Last Admin: 01/15/23 07:39 Dose: 10 mg Documented By: SOBEIDA Heparin Sodium (Porcine) (Heparin Sodium,Porcine 5,000 Unit/Ml Vial) 5,000 unit SUBCUT Q12H [facility] Last Admin: 01/15/23 04:43 Dose: Not Given Documented By: VEL Non-Admin Reason: pt refused, pt ambulates Hydromorphone HCl (Hydromorphone Hcl 1 Mg/Ml Syringe) 0.5 mg IVPUSH Q4H PRN; Protocol PRN Reason: Pain, Severe (Pain Scale 7-10) Levalbuterol HCl (Levalbuterol Hcl 1.25 Mg/3 Ml Vial.Neb) 1.25 mg INHALE Q3H PRN PRN Reason: Shortness of Breath/Wheezing Lisinopril (Lisinopril 10 Mg Tablet) 30 mg PO DAILY [facility]; Protocol Last Admin: 01/15/23 07:40 Dose: 30 mg Documented By: SOBEIDA Ondansetron HCl (Ondansetron Odt 4 Mg Tab.Rapdis) 4 mg TRANSLINGU Q6H PRN PRN Reason: Nausea and Vomiting Last Admin: 01/14/23 09:28 Dose: 4 mg Documented By: NYDIA Oxycodone HCl (Oxycodone Hcl Immed Release 5 Mg Tablet) 5 mg PO Q6H PRN PRN Reason: Pain, Mild (Pain Scale 1-3) Last Admin: 01/13/23 17:41 Dose: 5 mg Documented By: NYDIA Sodium Chloride (0.9 % Sodium Chloride Flush 3 Ml Syringe) [facility] Last Admin: 01/15/23 07:40 Dose: Not Given Documented By: SOBEIDA Non-Admin Reason: No Access Labs 01/14/23 06:34 01/14/23 06:34 Procedures Date of Service Date of Service: 01/15/23 Progress Note: A&P Assessment and plan (1) S/P laparoscopic cholecystectomy: Status: Acute (2) PAF (paroxysmal atrial fibrillation): Status: Acute Plan 57 year old female POD #2 s/p lap gabriella with recovery complicated by new onset Afib w RvR while in recovery. Doing well now post op and is tolerating solid PO with good intake. Has some referred pain but comfortable. VSS. Abd exam benign with clean incisions. Stable for dc to home today. F/u in office in [address] Madsen. A Fib- Remains in sinus. Cardiology saw her and holding on AC at this stage. Started on BB BID. Plan for holter monitor outpt. Will follow up upon discharge. Time Spent With Patient Time: Total time managing care of this patient today ____ minutes. Quality Stroke Does the patient have a stroke diagnosis?: No VTE Prior VTE?: No VTE Risk Level:: Surgical - moderate VTE Device Contraindication: N/A - Device Ordered VTE Drug Contraindication: N/A - Med Ordered
[2023-01-15 11:06] VITALS: BP 125/67; PULSE 78; RESP 20; TEMP 36.8; O2SAT 93
--- NOTE | 2023-01-15 11:44 | MHC.CM.PN ---
Pt medically cleared for D/C home today, her to transport.
--- NOTE | 2023-01-15 12:56 | P.DS_ITS ---
DS: Providers Provider Date of Service: 01/15/23 Date of admission: 01/14/23 10:35 Date of discharge: 01/15/23 Primary care physician: Maria Isabel Avendano MD Attending physician on admission: Wilfred Madsen Consults: 01/13/23 13:48 Consult to Cardiology Routine Consulting Provider: [facility] Reason for consultation: Afib with RVR Has provider been notified: Yes 01/13/23 14:08 Consult to Hospitalist Routine Comment: Consulting Provider: Hospitalist Reason For Exam: afib following lap cholecystectomy Attending physician on discharge: Wilfred Madsen DS: Diagnosis Discharge Diagnosis (1) S/P laparoscopic cholecystectomy: Status: Acute (2) PAF (paroxysmal atrial fibrillation): Status: Acute DS: Summary Hospital Course Hospital Course: HPI AT ADMISSION: 57-year-old female patient with complaints of episodes of abdominal pain in the right upper quadrant and epigastrium found to have gallstones within the gallbladder. HOSPITAL COURSE: On 6/12/31, a laparoscopic cholecystectomy was performed by Dr. Madsen. The procedure itself was uncomplicated however upon emerging from anesthesia, the patient developed rapid A fib confirmed by EKG in PACU. She was seen by cardiology. She required a cardizem drip and eventually converted to sinus. She was admitted for observation. Hospitalist consult was obtained. Her home meds were resumed. POD #1 she had difficulty with nausea and vomiting. She was eventually able to tolerate PO throughout the day. Her pain was well controlled on tylenol. She was ambulating. She was started on carvedilol 6.25mg PO BID by cardiology who recommended holding anticoagulation and outpatient holter monitor. On POD#2 she remained in sinus rhythm. She was tolerating a solid diet without nausea or vomiting. Her abdomen was benign with clean incisions. She felt ready for discharge. She was discharged to home in stable condition. She is to follow up with Dr. Madsen in 1 week and cardiology upon discharge. Status at Discharge Functional status at discharge: independent ambulation Overall status at discharge: patient is progressing back to baseline Time Spent with Patient Time attestation: Total time managing care of this patient today ____ minutes. Discharge coordination time: Less than 30 minutes Quality: Safe Use of Opioids Does Pt have an Active Cancer Diagnosis on the Problem List?: No Quality: Stroke Does the patient have a stroke diagnosis?: No Physical Exam Vital Signs: Vital Signs: Last Vital Signs Temp 98.2 F 01/15/23 11:06 Pulse 78 01/15/23 11:06 Resp 20 01/15/23 11:06 BP 125/67 01/15/23 11:06 Pulse Ox 93 01/15/23 11:06 O2 Del Method Room Air 01/15/23 11:06 O2 Flow Rate 2 01/13/23 15:00 BMI result Body Mass Index 35.5 Const: General: comfortable, no acute distress and alert Orientation/consciousness: patient oriented x3 Resp: Effort & Inspection: normal respiratory effort GI: Inspection: No distended and Yes incision (clean) Palpation (GI): Soft to palpation, Tenderness to palpation present (GI) (mild incisional), no guarding and not rigid Skin: General skin exam: no rashes or lesions noted Neuro: General: patient oriented x3 and moves all extremities DS: Data Data Completed and Pending Pending studies at discharge: Pending at discharge 01/13/23 10:54 Surgical [PTH] Routine Discharge Plan Discharge Anticipated Discharge Date/Time: 01/15/23 09:55 Patient Disposition: Home, Self-Care Discharge Diagnosis: s/p laparoscopic cholecystectomy, new onset afib Referrals: Maria Isabel Avendano MD [Primary Care Provider] - 1 Week Marcos Mora MD [Physician] - 1 Week Wilfred Madsen MD [Physician] - 1 Week Discharge Medications: New oxycodone 5 mg tablet 5 mg PO Q6H PRN (Reason: pain (scale score 7-10)) Qty: 15 0RF Rx Instructions: Partial Fill upon patient request. carvedilol 6.25 mg tablet 6.25 mg PO BID Qty: 60 0RF Rx Instructions: must administer with a meal/food Continued albuterol sulfate [ProAir HFA] 90 mcg/actuation HFA aerosol inhaler 2 puff inhalation Q4H PRN (Reason: shortness of breath or wheezing) Qty: 8.5 0RF buspirone 5 mg tablet 5 mg PO TID PRN (Reason: anxiety) 7 Days Qty: 20 0RF escitalopram oxalate 10 mg tablet 10 mg PO DAILY Qty: 90 0RF lisinopril 30 mg tablet 30 mg PO DAILY 90 Days Qty: 90 1RF Discharge Orders: Discharge Order (Routine); Ordered 01/15/23 Ordered By: Talisha Geronimo Diet: Low fat, low cholesterol Activity on Discharge: No heavy lifting Activity Restrictions/Additional Instructions: No lifting > 10 pounds for 2 weeks Low fat diet for one month No driving for one week Ice to the incision x 24 hours Remove dressing in 3 days Follow up in office in one week. Follow up with PCP/cardiology regarding paroxysmal atrial fibrillation. Care Plan Goals: Return to baseline health and resume normal activities following recovery period. Health Concerns: S/p laparoscopic cholecystectomy new onset paroxysmal atrial fibrillation hypertension Plan of Treatment: observation resume home antihypertensives and start carvedilol twice a day f/u with PCP and cardiology regarding PAF f/u with Dr. Madsen Assessment: Improved
== END 2023-01-15 15:22 | disposition home or self-care (01) | DRG 263 ==
LOC: HO.SSS 10:35 → HO.IMC 10:35
PROVIDERS: Admitting Provider Surgery; PCP Internal Medicine; Visit Provider Surgery
PROC: 0FT44ZZ Resection of Gallbladder, Percutaneous Endoscopic Approach (ICD-10-PCS; CPT 47562; principal; 2023-01-13 09:40)
DX: K80.20 Calculus of gallbladder without cholecystitis without obstruction (principal); F41.1 Generalized anxiety disorder; I10 Essential (primary) hypertension; I97.191 Other postprocedural cardiac functional disturbances following other surgery; I48.0 Paroxysmal atrial fibrillation; Z79.899 Other long term (current) drug therapy
CPT/HCPCS: 36415; 80048; 85025; 88304; 93005; J1170; J2250; J2405; J3010

== ENCOUNTER → 2023-01-21 08:51 | Outpatient (BNVA) | payer OTHER, SELFPAY | PROVIDERS: PCP Internal Medicine; Visit Provider Surgery ==

== ENCOUNTER → 2023-01-27 13:57 | Outpatient (REF) | payer OTHER, SELFPAY ==
--- NOTE | 2023-01-27 13:59 | HM_ITS ---
* Total monitoring time 30 days. Wear time 10 days. * Average heart rate 62/Min. Range 50 to 120/Min. * No evidence of atrial fibrillation. * No other significant findings. * No symptoms documented. MTDD
== END ==
LOC: HO.CARD 13:57
PROVIDERS: PCP Internal Medicine; Visit Provider Internal Medicine Cardiovascular Disease
DX: I48.0 Paroxysmal atrial fibrillation (principal)
CPT/HCPCS: 93270

== ENCOUNTER → 2023-01-27 13:59 | Outpatient (BNV) | payer OTHER, SELFPAY | PROVIDERS: PCP Internal Medicine; Visit Provider Internal Medicine | DX: I48.0 Paroxysmal atrial fibrillation (principal) | CPT/HCPCS: 93272 ==

== ENCOUNTER 2023-03-07 20:26 | Emergency (ER) | payer OTHER, SELFPAY ==
[2023-03-07] VITALS (7 sets, daily range): BP systolic 99–148; BP diastolic 56–80; PULSE 72–154; RESP 13–19; TEMP 36.8; O2SAT 94–98; BMI 35.4
--- NOTE | ~2023-03-07 | XR_ITS ---
EXAMINATION: XR CHEST CLINICAL INFORMATION: Question pulmonary edema. COMPARISON: December 09, 2021 TECHNIQUE: AP portable view of the chest was obtained. FINDINGS: No significant abnormality is noted involving the heart, lungs, mediastinum, bony thorax or soft tissues. XR/XR chest 1V IMPRESSION: No acute disease.
--- NOTE | 2023-03-07 20:28 | ECG_ITS ---
Test Reason : CHEST PAIN Blood Pressure : / mmHG Vent. Rate : 161 BPM Atrial Rate : 000 BPM P-R Int : 000 ms QRS Dur : 084 ms QT Int : 264 ms P-R-T Axes : 000 035 239 degrees QTc Int : 432 ms Atrial fibrillation with rapid ventricular response ST & T wave abnormality, consider inferolateral ischemia Abnormal ECG When compared with ECG of 14-JAN-2023 09:35, Atrial fibrillation has replaced Sinus rhythm Vent. rate has increased BY [address] now depressed in Inferior leads T wave inversion now evident in Inferior leads T wave inversion now evident in Lateral leads Referred By: Rosanna Hernandez Electronically Signed By:DAVIDA DEJESUS MD
--- NOTE | 2023-03-07 20:30 | ED_ITS ---
HPI - General Adult General Chief complaint: Chest Pain Stated complaint: Chest pain BP: 156/131 Time Seen by Provider: 03/07/23 20:43 Source: patient Mode of arrival: ambulatory Limitations: no limitations History of Present Illness HPI narrative: Patient comes to the emergency room complaining of chest pressure and palpitations for about an hour. 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 Patient denies any chest pain. When patient arrived in triage, it was noted the patient's heart rate was in the 160s, EKG showed atrial fibrillation with RVR. Patient states that susi roximately a month ago, patient had acute cholecystitis and then she developed atrial fibrillation for the 1st time. Patient was on metoprolol for 1 month. Patient stop taking metoprolol 4 days ago, because she ran out of her medication. Related Data Previous Rx's Medication Instructions Recorded albuterol sulfate 90 mcg/actuation 2 puff inhalation Q4H PRN 12/03/21 aerosol inhaler (ProAir HFA) shortness of breath or wheezing #8.5 grams lisinopril 30 mg tablet 30 mg PO DAILY 90 days #90 tabs 11/15/22 carvedilol 6.25 mg tablet 6.25 mg PO BID #60 tabs 01/15/23 escitalopram oxalate 10 mg tablet 10 mg PO DAILY #90 tabs 01/20/23 clotrimazole-betamethasone 1 1 appl topical ONCE 30 days #45 01/22/23 %-0.05 % topical cream grams carvedilol 6.25 mg tablet 6.25 mg PO BID #60 tabs 03/07/23 Allergies Allergy/AdvReac Type Severity Reaction Status Date / Time clavulanic acid AdvReac Mild Irritable Verified 01/22/23 08:56 [From [facility]] [facility] Past Medical History Medical History Anxiety, generalized Essential hypertension Fear of flying History of renal calculi Migraine headache Obesity Surgical History History of appendectomy History of section History of cystoscopy History of knee surgery History of lithotripsy History of oophorectomy History of tonsillectomy History of ureter stent Hx laparoscopic cholecystectomy (01/13/23) Hx of colonoscopy Family History Family History Father Unknown family medical history Mother COPD (chronic obstructive pulmonary disease) HTN (hypertension) CVD (cardiovascular disease) Son No problems noted. Daughter No problems noted. 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 Cognitive needs: No Hearing needs: No Vision needs: Yes Physical Exam ED Vital Signs: Vital Signs - 24 hr 03/07/23 20:30 03/07/23 20:55 03/07/23 21:21 Temperature 98.2 F Pulse Rate 144 H 146 H 133 H Respiratory Rate 18 13 19 Blood Pressure 148/56 H 123/66 Pulse Oximetry 98 94 Oxygen Delivery Method Room Air Room Air 03/07/23 21:43 03/07/23 22:03 03/07/23 22:53 Temperature Pulse Rate 143 H 133 H 154 H Respiratory Rate Blood Pressure 99/56 L 103/80 117/80 Pulse Oximetry 94 94 Oxygen Delivery Method Room Air Room Air 03/08/23 00:35 03/07/23 23:02 Temperature 98.9 F Pulse Rate 78 72 Respiratory Rate 10 L Blood Pressure 122/81 119/62 Pulse Oximetry 95 Oxygen Delivery Method Room Air BMI result Body Mass Index 35.4 Course Course Course Narrative: This is a rapid medical exam: Additional HPI, ROS, PE not included below will be deferred to primary provider. Patient is a 57-year-old female presenting to the emergency department with complaint of strong palpitations which began while she was sitting on the couch. Denies shortness of breath, nausea, vomiting. Does complaint of headache. States she was paiting today, was very hot, sweating, did not drink much water. Recent cholecystectomy and states she was in afib coming out of surgery. Was placed on a heart monitor following that but was not started on any new medications. Plan: EKG, labs, CXR Medications Administered Discontinued Medications Generic Name Dose Route Start Last Admin Trade Name Lila PRVelvet Reason Stop Dose Admin Digoxin 0.25 mg 03/07/23 22:04 03/07/23 22:12 Digoxin 0.5 Mg/2 Ml Ampul IVPUSH 03/07/23 22:05 0.25 mg ONCE ONE Administration Calcium Gluconate 2 gm in 100 mls @ 50 mls/hr 03/07/23 22:04 03/08/23 00:31 Calcium Gluconate IV 03/08/23 00:03 Infused ONCE ONE Infusion Metoprolol Tartrate 5 mg 03/07/23 20:47 03/07/23 20:55 Metoprolol Tartrate 5 Mg/5 Ml Vial IVPUSH 03/07/23 20:48 5 mg ONCE ONE Administration Metoprolol Tartrate 5 mg 03/07/23 21:24 03/07/23 21:33 Metoprolol Tartrate 5 Mg/5 Ml Vial IVPUSH 03/07/23 21:25 5 mg ONCE ONE Administration Medical Decision Making Medical Decision Making MDM Narrative: -patient stop taking metoprolol 4 days ago and now she is in AFib. Patient was given IV 5 mg of metoprolol. Heart rate did not improve, patient received a 2nd dose of 5 mg IV metoprolol. Patient's heart rate 160-130 but still spiking up to 150s. -patient's blood pressure 99/56, still with an elevated heart rate over 130. Patient was given 1 dose of digoxin. -this did not work as well. -patient's blood pressure 117/80, we will go ahead and start Cardizem drip -I discussed the patient with Dr. Arteaga, patient being admitted, patient agrees with plan. No chest pain. -my interpretation of labs: BNP and troponin negative, no signs of infection. -patient was waiting to be admitted, patient went into sinus rhythm, heart rate 80, asymptomatic. Patient walked around the emergency room, patient still sinus. -we discussed with Dr. Herring starting metoprolol again. Patient has an appointment with him on March 19. Patient refused blood thinners. Dr. Herring states aspirin is not indicated -patient instructed to follow-up with her primary care physician -patient ready for discharge Differential Diagnosis Differential Diagnoses: The differential diagnosis associated with the pres entation includes (Atrial fibrillation, SVT, atrial flutter) Admission/Observation Consideration of admission/observation: Escalation of care including admission/observation considered Consult Healthcare Provider Management of the patient was discussed with: Hospitalist Lab Data MDM Lab Attestation statement: I reviewed the patient's lab results. 03/07/23 20:52 03/07/23 20:52 Labs: Lab Results 03/07/23 03/07/23 03/07/23 Range/Units 20:52 20:52 20:52 WBC 9.2 (4.8-10.8) X10*3/uL RBC 4.91 (4.20-5.50) X10*6/uL Hgb 13.8 (12.0-16.0) g/dl Hct 40.8 (37.0-47.0) % MCV 83.1 (80.0-98.0) fL MCH 28.1 (27.0-33.0) pg MCHC 33.8 (31.0-35.0) g/dl RDW 13.4 (11.0-16.0) % Plt Count 252 (160-400) X10*3/uL MPV 9.1 L (9.4-12.3) fL Immature Gran % (Auto) 0.3 (0.0-0.4) % Neut % (Auto) 61.1 (45-73) % Lymph % (Auto) 29.7 (20-40) % [place] % (Auto) 7.5 (2-11) % Eos % (Auto) 1.0 (0-4) % Baso % (Auto) 0.4 (0-2) % Lymph # (Auto) 2.7 (1.2-4.9) X10*3/uL [place] # (Auto) 0.7 (0.1-1.2) X10*3/uL Eos # (Auto) 0.1 (0.0-0.4) X10*3/uL Baso # (Auto) 0.0 (0.0-0.2) X10*3/uL Abs Immat Gran (auto) 0.03 (0.00-0.03) X10*3/uL Absolute Neuts (auto) 5.6 (2.0-8.3) x10*3/uL Absolute Nucleated RBC 0.000 (0.0-0.012) X10*3/uL Nucleated RBC % (auto) 0.0 (0.0-0.2) /100WBC PT 11.5 (11.1-13.3) SEC INR 0.9 (0.9-1.1) Sodium 144 (135-145) mmol/L Potassium 3.7 (3.3-5.1) mmol/L Chloride 107 (96-108) mmol/L Carbon Dioxide 21 L (22-29) mmol/L Anion Gap 20 (12-20) BUN 18 H (9-16) mg/dL Creatinine 0.83 (0.5-1.4) mg/dL Estim Creat Clear Calc 79.0 Estimated GFR > 60 Random Glucose 122 H (60-115) mg/dL Calcium 10.1 (8.4-10.2) mg/dL Total Bilirubin 0.4 (0.0-1.0) mg/dL AST 13 (5-31) U/L ALT 21 (0-31) U/L Alkaline Phosphatase 85 (39-117) U/L Troponin I High Sens (<3.5-17.0) ng/L B-Natriuretic Peptide (<100) pg/mL Total Protein 7.2 (6.5-8.0) g/dL Albumin 4.3 (3.5-5.0) g/dL 03/07/23 03/07/23 Range/Units 20:52 20:52 WBC (4.8-10.8) X10*3/uL RBC (4.20-5.50) X10*6/uL Hgb (12.0-16.0) g/dl Hct (37.0-47.0) % MCV (80.0-98.0) fL MCH (27.0-33.0) pg MCHC (31.0-35.0) g/dl RDW (11.0-16.0) % Plt Count (160-400) X10*3/uL MPV (9.4-12.3) fL Immature Gran % (Auto) (0.0-0.4) % Neut % (Auto) (45-73) % Lymph % (Auto) (20-40) % [place] % (Auto) (2-11) % Eos % (Auto) (0-4) % Baso % (Auto) (0-2) % Lymph # (Auto) (1.2-4.9) X10*3/uL [place] # (Auto) (0.1-1.2) X10*3/uL Eos # (Auto) (0.0-0.4) X10*3/uL Baso # (Auto) (0.0-0.2) X10*3/uL Abs Immat Gran (auto) (0.00-0.03) X10*3/uL Absolute Neuts (auto) (2.0-8.3) x10*3/uL Absolute Nucleated RBC (0.0-0.012) X10*3/uL Nucleated RBC % (auto) (0.0-0.2) /100WBC PT (11.1-13.3) SEC INR (0.9-1.1) Sodium (135-145) mmol/L Potassium (3.3-5.1) mmol/L Chloride (96-108) mmol/L Carbon Dioxide (22-29) mmol/L Anion Gap (12-20) BUN (9-16) mg/dL Creatinine (0.5-1.4) mg/dL Estim Creat Clear Calc Estimated GFR Random Glucose (60-115) mg/dL Calcium (8.4-10.2) mg/dL Total Bilirubin (0.0-1.0) mg/dL AST (5-31) U/L ALT (0-31) U/L Alkaline Phosphatase (39-117) U/L Troponin I High Sens 3.7 (<3.5-17.0) ng/L B-Natriuretic Peptide < 10 (<100) pg/mL Total Protein (6.5-8.0) g/dL Albumin (3.5-5.0) g/dL Independent Interpretation I performed an independent interpretation of an: Plain X-Ray (My interpretation of chest x-ray: No pneumonia, no pulmonary edema) Radiology Impression Discussion of test interpretation with radiology: I have reviewed the radiologist's reading. Radiologist Impression: FINDINGS: No significant abnormality is noted involving the heart, lungs, mediastinum, bony thorax or soft tissues. XR/XR chest 1V IMPRESSION: No acute disease. ? Independent Historian Clinical information obtained from an independent historian. History obtained from or confirmed by: Spouse External Record Review External record reviewed: Inpatient record (Does not seem that patient was started on blood thinners, CHADS2 Vasc 2 score was 2 for age and hypertension, thought to be transient AFib due to cholecystitis) Chronic Conditions Patient?s care impacted by: Other (Atrial fibrillation) Critical Care Time Critical Care Time Critical Care Time: Yes Total Critical Care Time: 75 Attestation: I have personally provided critical care time. Time includes review of lab data, radiology results, discussion with consultants, and monitoring for potential decompensation. Intervention performed as documented. Discharge Plan Discharge Clinical Impression: Atrial fibrillation with RVR Patient Disposition: Home, Self-Care Instructions: Efraín (Atrial Fibrillation) (ED) Additional Instructions: Please follow-up with your primary care physician tomorrow. If you have any worsening or new symptoms, please return to the emergency room or call 911 Prescriptions: New carvedilol 6.25 mg tablet 6.25 mg PO BID Qty: 60 0RF Rx Instructions: must administer with a meal/food No Action albuterol sulfate [ProAir HFA] 90 mcg/actuation HFA aerosol inhaler 2 puff inhalation Q4H PRN (Reason: shortness of breath or wheezing) Qty: 8.5 0RF escitalopram oxalate 10 mg tablet 10 mg PO DAILY Qty: 90 0RF carvedilol 6.25 mg tablet 6.25 mg PO BID Qty: 60 0RF Rx Instructions: must administer with a meal/food clotrimazole-betamethasone 1-0.05 % cream 1 appl topical ONCE 30 Days Qty: 45 0RF lisinopril 30 mg tablet 30 mg PO DAILY 90 Days Qty: 90 1RF Discharge Date/Time: 03/08/23 04:56
[2023-03-07] MEDS: Metoprolol Tartrate 5 MG/5 ML VIAL IVPUSH ×2 (20:55→21:33)
[2023-03-07 20:56] LABS: MANUAL DIFF FLAG NO
[2023-03-07 20:58] LABS: Basophils Percent Auto 0.4 % (0-2); Eosinophils Absolute Auto 0.1 X10*3/uL (0.0-0.4); Hematocrit 40.8 % (37.0-47.0); Hemoglobin 13.8 g/dl (12.0-16.0); Imm Gran Abs Auto 0.03 X10*3/uL (0.00-0.03); Imm Gran Pct Auto 0.3 % (0.0-0.4); Lymphocytes Absolute Auto 2.7 X10*3/uL (1.2-4.9); Lymphocytes Percent Auto 29.7 % (20-40); Mean Corpuscular HGB Conc 33.8 g/dl (31.0-35.0); Mean Corpuscular Hemoglobin 28.1 pg (27.0-33.0); Mean Corpuscular Volume 83.1 fL (80.0-98.0); Mean Platelet Volume 9.1 fL (9.4-12.3); Monocytes Absolute Auto 0.7 X10*3/uL (0.1-1.2); Monocytes Percent Auto 7.5 % (2-11); Neutrophils Absolute Auto 5.6 x10*3/uL (2.0-8.3); Neutrophils Percent Auto 61.1 % (45-73); Platelet Count 252 X10*3/uL (160-400); Red Blood Count 4.91 X10*6/uL (4.20-5.50); Red Cell Distribution Width 13.4 % (11.0-16.0); White Blood Count 9.2 X10*3/uL (4.8-10.8)
[2023-03-07 21:03] LABS: INTERNATIONAL NORM RATIO 0.9 (0.9-1.1); Prothrombin Time 11.5 SEC (11.1-13.3)
[2023-03-07 21:18] LABS: Alanine Aminotransferase 21 U/L (0-31); Albumin Level 4.3 g/dL (3.5-5.0); Alkaline Phosphatase 85 U/L (39-117); Anion Gap 20 (12-20); Aspartate Amino Transferase 13 U/L (5-31); Bilirubin Total 0.4 mg/dL (0.0-1.0); Blood Urea Nitrogen 18 mg/dL (9-16); Calcium 10.1 mg/dL (8.4-10.2); Carbon Dioxide 21 mmol/L (22-29); Chloride 107 mmol/L (96-108); Estimated Glomerular Filt Rate > 60; Glucose Random 122 mg/dL (60-115); Potassium 3.7 mmol/L (3.3-5.1); Sodium 144 mmol/L (135-145); Total Protein 7.2 g/dL (6.5-8.0)
[2023-03-07 21:26] LABS: Troponin-I High Sensitivity 3.7 ng/L (<3.5-17.0)
--- NOTE | 2023-03-07 21:30 | PC.NURSE ---
this rn assumed care of pt @ 2054 from triage. pt placed on air sampling and monitoring found to be in afib with RVR. 20g iv placed in R AC. labs drawn and sent down to lab. dr ramos to bedside. pt medicated according to oct. pt at bedside
[2023-03-07 21:49] LABS: B Type Natriuretic Peptide < 10 pg/mL (<100)
[2023-03-07] MEDS: Digoxin 0.5 MG/2 ML AMPUL 0.25 MG IVPUSH (22:12)
[2023-03-07] MEDS: Calcium Gluconate/NaCl,Iso-Osm 2 GM/100 ML PLAST..BAG IV (22:12)
--- NOTE | 2023-03-07 23:34 | PC.NURSE ---
this rn attempted to medicated pt according to oct. pt HR found to be in normal sinus rhythm 70-80s. this rn made dr ramos and hospitalist dr miller aware of pt current heart rate. per md reji frankel gtt. per dr ramos ambulation trial with tele monitor performed. pt remained in normal sinus rhythm. pt hr did not exceed 102 during ambulation. pt reports no chest discomfort or palpitations. this rn made dr ramos aware. pt repositioned in bed awaiting disposition
[2023-03-08 00:35] VITALS: BP 122/81; PULSE 78; RESP 10; TEMP 37.2; O2SAT 95
== END 2023-03-08 04:56 | disposition home or self-care (01) ==
PROVIDERS: Registered Nurse Emergency; Emergency Provider Emergency Medicine; PCP Internal Medicine
DX: I48.20 Chronic atrial fibrillation, unspecified (principal); R07.89 Other chest pain; R06.02 Shortness of breath; Z79.899 Other long term (current) drug therapy
CPT/HCPCS: 36415; 71045; 80053; 83880; 84484; 85025; 85610; 93005; 96365; 96366; 96375; 99285; J0613; J1160

== ENCOUNTER → 2023-03-07 20:28 | Outpatient (BNV) | payer OTHER, SELFPAY | PROVIDERS: Emergency Provider Emergency Medicine; PCP Internal Medicine; Visit Provider Internal Medicine Cardiovascular Disease | DX: R07.9 Chest pain, unspecified (principal) | CPT/HCPCS: 93010 ==

== ENCOUNTER 2023-03-17 13:21 | Outpatient (AMB) | payer OTHER, SELFPAY ==
--- NOTE | 2023-03-17 13:27 | A.OFFVIS_ITS ---
Intake Vital Signs 03/17/23 13:28 Height 5 ft 3 in Weight 202 lb 13.204 oz BMI 35.9 BP 138/84 Blood Pressure Location Lt brachial Position Sitting Pulse 59 Intake Visit Reasons: Post op AFIB follow up Intake Note: Follow-up has had afib once post op and then again in ED Cracking Still Operator Required: No Allergies clavulanic acid [From AUGMENTIN] Adverse Reaction (Mild, Verified 01/22/23 08:56) Irritable Medication List - Last Reconciled 03/17/23 by Willy Herring MD albuterol sulfate 90 mcg/actuation (ProAir HFA) 2 puffs inhalation Q4H PRN aspirin (Adult Aspirin Regimen) 81 mg PO DAILY carvedilol 6.25 mg PO BID clotrimazole-betamethasone 1-0.05 % 1 appl topical ONCE 30 days escitalopram oxalate 10 mg PO DAILY lisinopril 30 mg PO DAILY 90 days HPI HPI Comments History of Present Illness Details Melida comes for follow-up after ED presentation recently with recurrent atrial fibrillation. She developed of atrial fibrillation 1st time documented during surgery for acute cholecystitis. This converted back to sinus rhythm she has time metoprolol therapy. Subsequently she presently emergency room on March 07 after she developed rapid palpitations associated with chest pressure. She says for 4 days she had run on metoprolol and then prior to the presentation she was very busy and stressed out and dehydrated and developed atrial fibrillation episode. However she said about 6 months ago she also had developed similar symptoms of palpitation at that time were come was negative. She was advised oral anticoagulation therapy in the emergency room but felt most comfortable to discuss this at the office visit today. She has started low-dose aspirin therapy. She also taking carvedilol regularly. She has not had any recurrent major symptoms at current point in time. [facility] Medical History Anxiety, generalized Essential hypertension Fear of flying History of renal calculi Migraine headache Obesity Surgical History History of appendectomy History of section History of cystoscopy History of knee surgery History of lithotripsy History of oophorectomy History of tonsillectomy History of ureter stent Hx laparoscopic cholecystectomy (01/13/23) Hx of colonoscopy Family History Father Unknown family medical history Mother COPD (chronic obstructive pulmonary disease) HTN (hypertension) CVD (cardiovascular disease) Son No problems noted. Daughter No problems noted. 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 Cognitive needs: No Hearing needs: No Vision needs: Yes Review of Systems Const Denies chills, Denies fatigue, Denies fever(s), Denies frequent falls, Denies weakness, Denies weight gain and Denies weight loss ENT Denies dizziness Card Denies chest pain, Denies leg edema, Denies lightheadedness, Denies palpitations, Denies dyspnea, Denies dyspnea on exertion, Denies orthopnea and Denies other (loss of consciousness) Resp Denies cough, Denies dyspnea and Denies dyspnea on exertion GI Denies hematochezia and Denies change in stool character Musc Denies abnormal gait, Denies muscle weakness, Denies numbness, Denies radiating pain into limb and Denies tingling Neuro Denies Abnormal speech present, Denies abnormal gait, Denies dizziness, Denies frequent falls, Denies numbness, Denies tingling and Denies weakness Endo Denies fatigue and Denies palpitations Physical Exam Vital Signs: Last Vital Signs Pulse 59 03/17/23 13:28 BP 138/84 03/17/23 13:28 BMI result Body Mass Index 35.9 Const General: cooperative, healthy appearing, no acute distress, well developed and alert Nutritional Appearance: obese Orientation/consciousness: patient oriented x3 Limitations: no limitations Eyes General: appearance normal, both eyes and all related structures Neck Neck: Yes normal visual inspection Thyroid: Thyroid normal Chest Chest palpation & inspection: normal inspection of the chest Breast/axilla inspection: normal inspection of the breasts (no puckering, dimpling, peau de orange, retraction, discharge, masses) Breast/axilla palpation: normal palpation of the breasts Resp Effort & Inspection: normal respiratory effort Auscultation: clear to auscultation bilaterally Cardio Jugular venous distension: no JVD Palpation: normal PMI Rate: regular rate Rhythm: regular rhythm Heart sounds: S1 normal heart sound present, S2 normal heart sound present, no click, no gallops, no murmurs and no rubs Peripheral pulses: Peripheral pulses 2+ throughout GI Inspection: Yes normal to inspection Palpation (GI): Soft to palpation Auscultation: normal bowel sounds Rectal Exam - Female: deferred General: Yes bladder normal to palpation External Female Exam: normal external appearance and normal appearance of the urethra Speculum Exam - Vagina: normal appearance of the vagina, normal palpation, normal vaginal discharge and vagina atrophic Speculum Exam - Cervix: normal appearance of the cervix, normal palpation and Other cervical findings present (atrophic changes- bled with pap smear) Bimanual exam- vagina & uterus: normal bimanual exam, normal palpation, uterine size normal, bladder normal to palpation and normal palpation Bimanual Exam- Adnexa, other: normal adnexae and no masses Skin General skin exam: no rashes or lesions noted Neuro General: patient oriented x3 Cognition (Neuro): normal cognition Speech: No Abnormal speech present Extrem General: Yes normal to inspection Psych Appearance: grossly normal Attitude: cooperative Thought process: Normal thought process present Office Procedures EKG Details: EKG shows sinus bradycardia otherwise normal EKG 80413-[id number], Complete Assessment & Plan Assessment & Plan (1) PAF (paroxysmal atrial fibrillation): Code(s): I48.0 - Paroxysmal atrial fibrillation Plan: Paroxysmal atrial fibrillation with recurrent episodes, recent episodes highly symptomatic. She had 1 episode triggered by acute medical illness and undergoing surgery. However given her prior history and family history she is likely to have recurrent atrial fibrillation. Will obtain an echocardiogram to assess for left atrial chamber size. If this is increased in size would definitely be a candidate for long-term oral anticoagulation therapy. Will also obtain a 30 day event monitor. Have discussed about risk of stroke.CHADSVASc score of at least 2. Would suggest her to switch to oral anticoagulation therapy with Eliquis which has similar bleeding risk to low-dose aspirin therapy with much superior protection. She understands and agrees. Continue carvedilol therapy. Avoidance of stimulants was discussed. Will also prescribe pill in the pocket approach with flecainide but the 1st time she has to take flecainide while she is in the emergency room. She understands this. Will follow up in the clinic in 2 months. Thank you for allowing me to partake in the care Orders: Orders ECG 30 day event monitor 4 Weeks I48.0 - Paroxysmal atrial fibrillation CA echo transthoracic complete Today I48.0 - Paroxysmal atrial fibrillation Medications: New apixaban (Eliquis) 5 mg PO BID 60 tabs 3RF flecainide First time to take it in emergency room under monitor setting 150 mg (3 x 50 mg) PO ONCE PRN 12 tabs 0RF For atrial fibrillation Coding Level of Care Code Est Pt Level 4 (17832) Diagnoses PAF (paroxysmal atrial fibrillation) I48.0 CPT Codes EKG - CPT: 98655-[id number], Complete ([id number])
[2023-03-17 13:28] VITALS: BP 138/84; PULSE 59; BMI 35.9
== END 2023-03-17 14:21 | disposition home or self-care (01) ==
PROVIDERS: PCP Internal Medicine; Referring Provider Internal Medicine; Visit Provider Internal Medicine Cardiovascular Disease
DX: I48.0 Paroxysmal atrial fibrillation (principal)
CPT/HCPCS: 93010; 99214

== ENCOUNTER → 2023-03-17 13:21 | Outpatient (BNVA) | payer OTHER, SELFPAY | PROVIDERS: PCP Internal Medicine; Referring Provider Internal Medicine; Visit Provider Internal Medicine Cardiovascular Disease | DX: I48.0 Paroxysmal atrial fibrillation (principal); I10 Essential (primary) hypertension | CPT/HCPCS: 93005 ==

== ENCOUNTER → 2023-04-11 10:58 | Outpatient (REF) | payer OTHER, SELFPAY ==
--- NOTE | 2023-04-11 11:00 | HM_ITS ---
Cardiac event monitor Indication: Syncope and collapse Technique: Patient was hooked up to cardiac event monitor on 04/11/2023 for total of 30 days. Compliance rate was 94.6%. Findings: Baseline was normal sinus rhythm, 86% of the time. Lowest heart rate was 59 beats per minute and the fastest heart rate of 129 beats per minute in short run of SVE. No significant pauses or av conduction abnormality noted. Rare PACs and PVCs noted. There were short runs of SVG either 3-4 beats. Patient reported few events. Couple of events correlating with pounding in the neck correlated with short run of SVT and isolated PACs. Episode of chest discomfort associated with normal sinus rhythm. There are no episodes of fainting during this monitoring period. Conclusion: 1. Baseline was normal sinus rhythm with no pauses or av conduction abnormality 2. Rare PACs or PVCs noted with short SVT run, 3-4 beats 3. Patient reported event of pounding in the neck correlated with PACs or short SVT run MTDD
== END ==
LOC: HO.CARD 10:58
PROVIDERS: PCP Internal Medicine; Visit Provider Internal Medicine Cardiovascular Disease
DX: I48.0 Paroxysmal atrial fibrillation (principal)
CPT/HCPCS: 93270

== ENCOUNTER → 2023-04-11 11:00 | Outpatient (BNV) | payer OTHER, SELFPAY | PROVIDERS: PCP Internal Medicine; Visit Provider Internal Medicine Cardiovascular Disease | DX: I48.0 Paroxysmal atrial fibrillation (principal) | CPT/HCPCS: 93272 ==

== ENCOUNTER → 2023-05-09 14:57 | Outpatient (REF) | payer OTHER, SELFPAY ==
--- NOTE | 2023-05-09 14:59 | CA_ITS ---
Transthoracic Echocardiogram Patient (Last, First, Middle): Melida Chapa A Gender: Female Date of : 1965 Age: 57 Procedure Date: 05/09/2023 Procedure Type: Transthoracic Echocardiogram Location: OP Height: 160.02 cm Weight: 92.99 kg BSA: 1.95 m2 Heart Rate: 73 bpm BP: 130 / 80 mmHg Straddle Bug Driver: SANAZ De La Rosa MD: Willy Herring MD Curriculum Coach: Willy Herring MD Symptoms: I48.0 - Paroxysmal atrial fibrillation Study Quality: Adequate/w Contrast ECG Rhythm: Sinus Conclusions: - 1. Normal LV ejection fraction of 55-60% with impaired relaxation filling pattern 2. Mild aortic stenosis 3. Mildly dilated ascending aorta at the level of sinus of Valsalva 4. No gross pericardial effusion Findings Procedure Information Contrast agent, definity, is being given per protocol without apparent complications. Left Ventricle Normal left ventricular size, thickness, and systolic function. The visually estimated ejection fraction is between 55-60%. Spectral Doppler is indicative of an impaired relaxation filling pattern. E/E prime ratio is between 8 and 15 consistent with indeterminate filling pressures. Right Ventricle Normal right ventricular cavity size and systolic function. Atria The left atrium is normal in size. Interatrial shunt cannot be excluded. The right atrium is normal in size. Aortic Valve The aortic valve was not well visualized. There is mild calcification of the aortic valve. There is mild aortic valve stenosis. The peak aortic gradient is 22 mmHg.The mean gradient is 11 mmHg. There is no aortic valve regurgitation. Mitral Valve There is mild anterior and posterior mitral leaflet thickening. There is mild anterior and mild posterior mitral annular calcification. There is mild mitral annular calcification. There is trace mitral valve regurgitation. There is no mitral valve stenosis. Pulmonic Valve The pulmonic valve was not well visualized. Tricuspid Valve Likely normal tricuspid valve structure and function. Tricuspid regurgitation envelope is inadequate for calculation of right ventricular systolic pressure. Normal right atrial pressure. Great Vessels The pulmonary artery was not well visualized. There is mild dilatation of the sinuses of Valsalva. Venous The inferior vena cava is normal in size and collapses greater than 50% with inspiration. Pericardium/Pleural There is no evidence of pericardial effusion. Measurements 2D Linear Measurements IVSd: 1.10 0.6-0.9/0.6-1.0 cm LVIDd: 4.60 3.9-5.3/4.2-5.9 cm LVIDd Index: 2.36 2.4-3.2/2.2-3.1 cm/m2 LVIDs: 2.40 2.0-3.6 cm LVPWd: 0.90 0.7-1.1 cm LA Diam: 3.10 2.7-3.8/3.0-4.0 cm LAIDs Index: 1.59 1.5-2.3 cm/m2 LV Mass: 197.77 67-162/88-224 g LV Mass Index: 101.42 43-95/49-115 g/m2 LVOT Diam: 2.00 3.0+(-)1.3 cm 2D Systolic Function EF 4C: 57.10 >55% EF 2C: 64.60 >55% EF BiP: 60.60 >55% Mitral Valve MV Pk E: 1.02 MV PK A: 1.40 MV Decel Time: 292.00 E/A: 0.70 E'Lateral: 9.25 E'Medial: 6.74 E/E' Med: 15.10 E/E' Lat: 11.00 PHT: 86.00 MVA PHT: 2.56 Decel Tripp: 3.48 Aortic Valve AoV Pk Niraj: 2.33 AoV Mn Niraj: 1.55 AoV VTI: 0.49 AoV Pk Grad: 22.00 Aov Mn Grad: 11.00 ARTHUR Cont.VTI: 1.46 LVOT LVOT Pk Niraj: 1.25 LVOT Mn Niraj: 0.74 LVOT VTI: 0.23 LVOT Pk Grad: 6.00 LVOT Mn Grad: 3.00 LVOT Diam: 2.00 LVOT Area: 3.14 Diastolic Function MV Pk E: 1.02 MV Pk A: 1.40 E/A: 0.70 E'Medial: 6.74 E/E' Med: 15.10 E' Laterial: 9.25 E/E' Lat: 11.00 Right Ventricle TAPSE (mm): 24.30 TVS' Niraj: 17.30 Tricuspid Valve RA Press: 3.00 Great Vessels Aorta Sinus of Valsalva: 4.00 2.0-3.5 cm Ao Asc: 3.60 2.1-3.4 cm Pulmonary Valve PV Pk Niraj: 1.17 Peak PV Grad: 5.00 Updated in Other Vendor System with Status of Final Willy Herring MD electronically signed on 05/12/2023 12:40:11 PM with status of Final
== END ==
LOC: HO.CARD 14:57
PROVIDERS: PCP Internal Medicine; Visit Provider Internal Medicine Cardiovascular Disease
DX: I48.0 Paroxysmal atrial fibrillation (principal)
CPT/HCPCS: 93306; Q9957

== ENCOUNTER → 2023-05-09 14:59 | Outpatient (BNV) | payer OTHER, SELFPAY | PROVIDERS: PCP Internal Medicine; Visit Provider Internal Medicine Cardiovascular Disease | DX: I35.0 Nonrheumatic aortic (valve) stenosis (principal); I48.0 Paroxysmal atrial fibrillation | CPT/HCPCS: 93306 ==

== ENCOUNTER 2023-05-10 08:13 | Emergency (ER) | payer OTHER, SELFPAY ==
[2023-05-10 08:16] VITALS: BP 156/83; PULSE 89; RESP 16; TEMP 36.6; O2SAT 95; BMI 38.2
--- NOTE | 2023-05-10 08:26 | ED.FEMALEGU ---
HPI - Female Genitourinary General Chief complaint: Urogenital-Female Stated complaint: UTI Time Seen by Provider: 05/10/23 08:20 Source: patient Mode of arrival: ambulatory Limitations: no limitations History of Present Illness HPI Narrative: 57 year old female with PMHx significant for MDD, anxiety, migraines, paroxysmal afib (not on AC), HTN, hydronephrosis, & renal stones s/p cystoscopy with bilateral stent placement (on 05/01/23) presents to the ED today with hematuria, urinary frequency/urgency, feeling of incomplete emptying, and bladder pain x4 days. Reports laparoscopic cystoscopy 9 days ago at [facility] (Dr. Awad), d/c home with hollins catheter in place which she states fell out at home 7 days ago. Additionally completed a course of amoxicilin 4 days ago. Reports informing her urologist about symptoms who then advised her to come in for evaluation. At present patient tells me that the blood is only present on urination and not upon wiping. Denies blood clots. Denies fever, chills, dizziness, abdominal pain, N/V, vaginal bleeding or discharge. Related Data Previous Rx's Medication Instructions Recorded carvedilol 6.25 mg tablet 6.25 mg PO BID #60 tabs 01/15/23 escitalopram oxalate 10 mg tablet 10 mg PO DAILY #90 tabs 01/20/23 clotrimazole-betamethasone 1 1 appl topical ONCE 30 days #45 01/22/23 %-0.05 % topical cream grams apixaban 5 mg tablet (Eliquis) 5 mg PO BID #60 tabs 03/17/23 flecainide 50 mg tablet 150 mg (3 x 50 mg) PO ONCE PRN For 03/17/23 atrial fibrillation #12 tabs albuterol sulfate 90 mcg/actuation 2 puff PO Q4H PRN for wheezing 04/15/23 aerosol inhaler #8.5 ea lisinopril 30 mg tablet 30 mg PO DAILY 90 days #90 tabs 05/09/23 cefpodoxime 200 mg tablet 200 mg PO BID 7 days #14 tabs 05/10/23 ketorolac 10 mg tablet 10 mg PO Q8H 5 days #15 tabs 05/10/23 Allergies Allergy/AdvReac Type Severity Reaction Status Date / Time clavulanic acid AdvReac Mild Irritable Verified 01/22/23 08:56 [From AUGMENTIN] Review of Systems Review of Systems: Constitutional: No fever, chills, fatigue, night sweats, weight changes ENT/Mouth: No ear pain, hearing loss, nasal congestion, sinus pain, rhinorrhea, sore throat Eyes: No eye pain, swelling, redness, vision changes, discharge Cardio: No chest pain, palpitations, MCNAMARA, orthopnea, peripheral edema Pulm: No SOB, cough, sputum, wheezing, dyspnea, hemoptysis GI: No nausea, vomiting, hematemesis, abdominal pain, diarrhea, constipation, hematochezia, melena : No irregular bleeding, + dysuria, + frequency, + urgency, No hesitancy, + hematuria, No flank pain, urinary flow changes, urinary incontinence or retention MSK: No back pain, neck pain, joint pain, myalgias Skin: No lesions, rashes Neuro: No weakness, numbness, paresthesias, LOC, dizziness, headache All other systems reviewed and are negative. [facility] Past Medical History Attestation statement: The following information was validated with the patient. Source: old records reviewed and nursing notes reviewed Medical History Itching of ear Hospital discharge follow-up Biliary colic Cholelithiasis RUQ abdominal pain Obesity due to excess calories Change in bowel function Rectal bleed Encounter for routine gynecological examination Impaired fasting blood sugar Ex-smoker Shortness of breath Premature atrial contraction Encounter for general adult medical examination with abnormal findings Obesity Fear of flying History of renal calculi Migraine headache Anxiety, generalized Surgical History Hx laparoscopic cholecystectomy (01/13/23) Hx of colonoscopy History of ureter stent History of cystoscopy History of appendectomy History of tonsillectomy History of section History of knee surgery History of lithotripsy History of oophorectomy Family History Family History Father Unknown family medical history Mother COPD (chronic obstructive pulmonary disease) HTN (hypertension) CVD (cardiovascular disease) Son No problems noted. Daughter No problems noted. 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 Const: General: cooperative, no acute distress, alert and awake Orientation/consciousness: patient oriented x3 Limitations: no limitations HEENT: Head: Yes normal to inspection Ears: hearing grossly normal bilaterally General nose exam: Normal external nose present Eyes: General: appearance normal, both eyes and all related structures Neck: Neck: Yes normal visual inspection and Yes no meningeal signs Chest: Chest palpation & inspection: normal inspection of the chest Resp: Effort & Inspection: normal respiratory effort Auscultation: clear to auscultation bilaterally Cardio: Rate: regular rate Rhythm: regular rhythm Heart sounds: S1 normal heart sound present and S2 normal heart sound present Peripheral pulses: Peripheral pulses 2+ throughout GI: Inspection: Yes normal to inspection Palpation (GI): Soft to palpation, nontender, no guarding, hepatosplenomegaly present and No Rebound tenderness present Auscultation: normal bowel sounds : General: Yes bladder normal to inspection, Yes bladder normal to palpation and Yes no CVA tenderness Bimanual exam- vagina & uterus: bladder normal to palpation Back/Spine/Pelvis: Back: no CVA tenderness Skin: General skin exam: no rashes or lesions noted Neuro: General: patient oriented x3, gait normal, moves all extremities and no meningeal signs Cranial nerves: Yes CN's II-XII intact bilaterally Extrem: General: Yes normal to inspection and Yes full ROM Course Course Course Narrative: 1000-- CBC without leukocytosis or anemia. Normal renal function. Chemistry without acute electrolyte abnormalities requiring intervention. Bladder scan with 30 cc of urine present after voiding >unlikely obstruction. UA with large amount of blood, > 20 RBC, positive leukocyte esterase and WBC with trace bacteria > these findings are consistent with UTI likely secondary to recent Hollins use and traumatic removal. Patient is afebrile, without flank pain, with unremarkable lab work and no leukocytosis > I do not suspect kidney infection/ etiology. I do not feel as though imaging is warranted at this time. Given patient's recent course of amoxicillin, will send new antibiotic (cefpodoxime) to patient's pharmacy as she may have resistance to amox. The patient tells me that she currently has Pyridium and oxybutynin at home prescribed by her urologist. Advised her to continue to use these and educated her on changes to urine color that can occur while taking this medication. > discussed strict return precautions > all questions answered. Patient to be discharged home with antibiotics and pain control. Patient agreeable with plan. Has plan to follow up with urologist at [facility]. > stable for discharge Medications Administered Discontinued Medications Generic Name Dose Route Start Last Admin Trade Name Freq PRN Reason Stop Dose Admin Ketorolac Tromethamine 30 mg 05/10/23 09:47 05/10/23 10:40 Ketorolac Tromethamine 30 Mg/Ml Vial IM 05/10/23 09:48 30 mg ONCE ONE Administration Medical Decision Making Medical Decision Making [facility] Narrative: 57 year old female with PMHx significant for MDD, anxiety, migraines, paroxysmal afib (not on AC), HTN, hydronephrosis, & renal stones s/p cystoscopy with bilateral stent placement (on 05/01/23) presents to the ED today with hematuria, urinary frequency/urgency, feeling of incomplete emptying, and bladder pain x4 days. VSS. Afebrile, normotensive. Exam unremarkable. Clinical concern for UTI vs traumatic hollins removal. Lower suspicion for obstruction vs nephrolithiasis vs post-op complication vs pyelonephritis. Unlikely bladder carcinoma. Unlikely endometrial carcinoma as patient reports blood in her urine and not upon wiping. Differential Diagnosis Differential Diagnoses: The differential diagnosis associated with the presentation includes As above. Admission/Observation Consideration of admission/observation: Escalation of care including admission/observation considered Lab Data [facility] Lab Attestation statement: I reviewed the patient's lab results. As above. 05/10/23 08:35 09/30/23 08:35 Labs: Lab Results 05/10/23 05/10/23 Range/Units 08:30 08:35 WBC 6.1 (4.8-10.8) X10*3/uL RBC 4.28 (4.20-5.50) X10*6/uL Hgb 12.1 (12.0-16.0) g/dl Hct 36.3 L (37.0-47.0) % MCV 84.8 (80.0-98.0) fL MCH 28.3 (27.0-33.0) pg MCHC 33.3 (31.0-35.0) g/dl RDW 13.2 (11.0-16.0) % Plt Count 244 (160-400) X10*3/uL MPV 9.2 L (9.4-12.3) fL Immature Gran % (Auto) 0.5 H (0.0-0.4) % Neut % (Auto) 62.1 (45-73) % Lymph % (Auto) 23.6 (20-40) % [place] % (Auto) 8.4 (2-11) % Eos % (Auto) 5.1 H (0-4) % Baso % (Auto) 0.3 (0-2) % Lymph # (Auto) 1.4 (1.2-4.9) X10*3/uL [place] # (Auto) 0.5 (0.1-1.2) X10*3/uL Eos # (Auto) 0.3 (0.0-0.4) X10*3/uL Baso # (Auto) 0.0 (0.0-0.2) X10*3/uL Abs Immat Gran (auto) 0.03 (0.00-0.03) X10*3/uL Absolute Neuts (auto) 3.8 (2.0-8.3) x10*3/uL Absolute Nucleated RBC 0.000 (0.0-0.012) X10*3/uL Nucleated RBC % (auto) 0.0 (0.0-0.2) /100WBC Sodium 142 (135-145) mmol/L Potassium 4.3 (3.3-5.1) mmol/L Chloride 109 H (96-108) mmol/L Carbon Dioxide 20 L (22-29) mmol/L Anion Gap 17 (12-20) BUN 19 H (9-16) mg/dL Creatinine 0.90 (0.5-1.4) mg/dL Estim Creat Clear Calc 75.9 Estimated GFR > 60 Random Glucose 147 H (60-115) mg/dL Calcium 9.9 (8.4-10.2) mg/dL Total Bilirubin 0.3 (0.0-1.0) mg/dL AST 24 (5-31) U/L ALT 34 H (0-31) U/L Alkaline Phosphatase 90 (39-117) U/L Total Protein 6.4 L (6.5-8.0) g/dL Albumin 3.7 (3.5-5.0) g/dL Urine Color RED Urine Appearance Hazy Urine pH 6.5 (5.0-9.0) Ur Specific [place] 1.025 (1.005-1.025) Urine Protein See Note (Neg-Trace) mg/dL Urine Glucose (UA) Negative (Negative) mg/dL Urine Ketones Trace (Negative) mg/dL Urine Blood Large (3+) H (Negative) Urine Nitrite See Note (Negative) Ur Leukocyte Esterase Small (1+) H (Negative) Urine RBC >20 H (0-2) /HPF Urine WBC 11-20 (0-5) /HPF Ur Squamous Epith Cells 0-2 (0-2) /HPF Urine Bacteria Trace (None Seen) Hyaline Casts 3-5 (0-2) /LPF External Record Review External record reviewed: Inpatient record, Office record, Outpatient record, Prior outpatient labs, Prior outpatient radiology, Primary care record and Outside ED record Prescription Management I considered prescription management with: Pain Medication and Antibiotic Chronic Conditions Patient?s care impacted by: Other (UTI, neprholithasis) Critical Care Time Critical Care Time Critical Care Time: No Discharge Plan Discharge Clinical Impression: Urinary tract infection Patient Disposition: Home, Self-Care Instructions: Urinary Tract Infection in Women (ED) Additional Instructions: You labs today are reassuring and do not show infection. Your urine today was positive for infection. Cefpodoxime is an antibiotic that has been sent to your pharmacy. Take this as prescribed and do not miss any doses. You must complete the entire course of antibiotics. If you do not, there is a risk of the infection coming back or worsening. Continue taking oxybutinin and pyridium that has been prescribed to you by your urologist to help relax the bladder and relieve the pain, burning, and discomfort caused by infection or irritation of the urinary tract. It is not an antibiotic and will not cure the infection itself. Toradol is an anti-inflammatory that has been sent to your pharmacy. You received a dose of this in the emergency department today. Take this as needed for pain. Do not take this with other NSAIDs like ibuprofen. Follow up with your primary care provider as needed. If you develop a fever or new/ worsening symptoms call 911 or come back to the ER for further evaluation. Prescriptions: New cefpodoxime 200 mg tablet 200 mg PO BID 7 Days Qty: 14 0RF Rx Instructions: must administer with a meal/food ketorolac 10 mg tablet 10 mg PO Q8H 5 Days Qty: 15 0RF Rx Instructions: tolerated dose in ED No Action escitalopram oxalate 10 mg tablet 10 mg PO DAILY Qty: 90 0RF albuterol sulfate 90 mcg/actuation HFA aerosol inhaler 2 puff PO Q4H PRN (Reason: for wheezing) Qty: 8.5 1RF lisinopril 30 mg tablet 30 mg PO DAILY 90 Days Qty: 90 1RF carvedilol 6.25 mg tablet 6.25 mg PO BID Qty: 60 0RF Rx Instructions: must administer with a meal/food clotrimazole-betamethasone 1-0.05 % cream 1 appl topical ONCE 30 Days Qty: 45 0RF Eliquis 5 mg tablet 5 mg PO BID Qty: 60 3RF flecainide 50 mg tablet 150 mg PO ONCE PRN (Reason: For atrial fibrillation) Qty: 12 0RF Rx Instructions: First time to take it in emergency room under monitor setting Referrals: Maria Isabel Avendano MD [Primary Care Provider] - Stand Alone Forms: Work/School Release Interventions: ED Discharge Assessment Last Done: 05/10/23 10:39 Discharge Date/Time: 05/10/23 10:42
[2023-05-10 08:40] LABS: MANUAL DIFF FLAG NO
[2023-05-10 08:42] LABS: Appearance Urine Hazy; Color Urine RED; Glucose Urine UA Negative (Negative); PH 6.5 (5.0-9.0); Specific Gravity - Urine 1.025 (1.005-1.025); UMIC TRIGGER UACC YES; Urine Blood Large (3+) (Negative); Urine Ketones Trace mg/dL (Negative)
[2023-05-10 08:44] LABS: Leukocyte Esterase Urine Small (1+) (Negative)
[2023-05-10 08:47] LABS: Basophils Percent Auto 0.3 % (0-2); Eosinophils Absolute Auto 0.3 X10*3/uL (0.0-0.4); Eosinophils Percent Auto 5.1 % (0-4); Hematocrit 36.3 % (37.0-47.0); Hemoglobin 12.1 g/dl (12.0-16.0); Imm Gran Abs Auto 0.03 X10*3/uL (0.00-0.03); Imm Gran Pct Auto 0.5 % (0.0-0.4); Lymphocytes Absolute Auto 1.4 X10*3/uL (1.2-4.9); Lymphocytes Percent Auto 23.6 % (20-40); Mean Corpuscular HGB Conc 33.3 g/dl (31.0-35.0); Mean Corpuscular Hemoglobin 28.3 pg (27.0-33.0); Mean Corpuscular Volume 84.8 fL (80.0-98.0); Mean Platelet Volume 9.2 fL (9.4-12.3); Monocytes Absolute Auto 0.5 X10*3/uL (0.1-1.2); Monocytes Percent Auto 8.4 % (2-11); Neutrophils Absolute Auto 3.8 x10*3/uL (2.0-8.3); Neutrophils Percent Auto 62.1 % (45-73); Platelet Count 244 X10*3/uL (160-400); Red Blood Count 4.28 X10*6/uL (4.20-5.50); Red Cell Distribution Width 13.2 % (11.0-16.0); White Blood Count 6.1 X10*3/uL (4.8-10.8)
[2023-05-10 08:51] LABS: Bacteria Urine Trace (None Seen); RBC Urine >20 /HPF (0-2); Squamous Epithelial Cell Urine 0-2 /HPF (0-2); UACC Culture Trigger YES
[2023-05-10 09:01] LABS: Alanine Aminotransferase 34 U/L (0-31); Albumin Level 3.7 g/dL (3.5-5.0); Alkaline Phosphatase 90 U/L (39-117); Anion Gap 17 (12-20); Aspartate Amino Transferase 24 U/L (5-31); Bilirubin Total 0.3 mg/dL (0.0-1.0); Blood Urea Nitrogen 19 mg/dL (9-16); Calcium 9.9 mg/dL (8.4-10.2); Carbon Dioxide 20 mmol/L (22-29); Chloride 109 mmol/L (96-108); Creatinine Clr Calc Pharmacy 75.9; Estimated Glomerular Filt Rate > 60; Glucose Random 147 mg/dL (60-115); Potassium 4.3 mmol/L (3.3-5.1); Sodium 142 mmol/L (135-145); Total Protein 6.4 g/dL (6.5-8.0)
[2023-05-10] MEDS: Ketorolac Tromethamine 30 MG/ML VIAL IM (10:40)
== END 2023-05-10 10:42 | disposition home or self-care (01) ==
PROVIDERS: Emergency Provider Emergency Medicine; PCP Internal Medicine
DX: N39.0 Urinary tract infection, site not specified (principal); I10 Essential (primary) hypertension; I48.0 Paroxysmal atrial fibrillation; E66.9 Obesity, unspecified; Z68.38 Body mass index [BMI] 38.0-38.9, adult; Z90.49 Acquired absence of other specified parts of digestive tract; Z79.01 Long term (current) use of anticoagulants; Z79.899 Other long term (current) drug therapy
CPT/HCPCS: 36415; 80053; 81001; 85025; 87086; 96372; 99283; 99284; J1885

== ENCOUNTER 2023-06-05 15:35 | Outpatient (AMB) | payer OTHER, SELFPAY ==
--- NOTE | 2023-06-05 15:41 | A.OFFVIS_ITS ---
Intake Vital Signs 06/05/23 15:42 Height 5 ft 3 in Weight 212 lb 8.41 oz BMI 37.6 BP 138/78 Blood Pressure Location Lt brachial Position Sitting Pulse 74 Pulse Source Pulse Oximeter Intake Visit Reasons: follow up Intake Note: f/u Allergies clavulanic acid [From AUGMENTIN] Adverse Reaction (Mild, Verified 06/05/23 15:44) Irritable Medication List - Last Reconciled 06/05/23 by Shahla Burns, [employer]CH[employer]ICAL [employer]IABILITY ENGINEER-C albuterol sulfate 90 mcg/actuation 2 puffs PO Q4H PRN escitalopram oxalate 10 mg PO DAILY lisinopril 30 mg PO DAILY 90 days HPI follow up HPI Details Melida is a 57-year-old female past medical history of hypertension, paroxysmal atrial fibrillation who presents for follow-up after recent cardiac event monitor and echocardiogram. Today she reports that she can feel when she has atrial fibrillation. She says she has notice brief episodes at times since her last visit. She has had no sustained rapid rates. She ran out of carvedilol and did not refill it. She also reports having hematuria with the Eliquis. She then was found to have kidney stones and underwent a retrieval of the stones. She said she is following with a urologist in [place] who told her that she is unable to restart anticoagulation as of yet. She needs to have another ultrasound and then restarting Eliquis will be determined. She no longer has hematuria. No chest discomfort at rest or with activity. No shortness of breath, presyncope, syncope, PND, orthopnea or edema. She has been taking a magnesium supplement and believes this helps with her muscle cramping and soreness. She reports her home blood pressures as being 150-160 over 80s. [facility] Medical History Itching of ear Hospital discharge follow-up Biliary colic Cholelithiasis RUQ abdominal pain Obesity due to excess calories Change in bowel function Rectal bleed Encounter for routine gynecological examination Impaired fasting blood sugar Ex-smoker Shortness of breath Premature atrial contraction Encounter for general adult medical examination with abnormal findings Obesity Fear of flying History of renal calculi Migraine headache Anxiety, generalized Surgical History Hx laparoscopic cholecystectomy (01/13/23) Hx of colonoscopy History of ureter stent History of cystoscopy History of appendectomy History of tonsillectomy History of section History of knee surgery History of lithotripsy History of oophorectomy Family History Father Unknown family medical history Mother COPD (chronic obstructive pulmonary disease) HTN (hypertension) CVD (cardiovascular disease) Son No problems noted. Daughter No problems noted. 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 Cognitive needs: No Hearing needs: No Vision needs: Yes Review of Systems Const All systems reviewed & are unremarkable except as noted in HPI and below ENT Denies dizziness Card Denies chest pain, Denies chest pain at rest, Denies chest pain with activity, Reports rapid heart rate, Denies pedal edema, Denies edema, Denies leg edema, Denies lightheadedness, Denies palpitations, Denies dyspnea, Denies dyspnea on exertion and Denies orthopnea Resp Denies cough, Denies dyspnea and Denies dyspnea on exertion GI Denies hematochezia and Denies change in stool character Musc Denies abnormal gait, Denies limited range of motion, Denies muscle cramps, Denies muscle weakness, Denies numbness, Denies radiating pain into limb, Denies stiffness and Denies tingling Neuro Denies abnormal gait, Denies dizziness, Denies numbness and Denies tingling Endo Denies palpitations Physical Exam Vital Signs: Last Vital Signs Pulse 74 06/05/23 15:42 BP 120/70 06/05/23 15:42 BMI result Body Mass Index 37.6 Const General: cooperative, healthy appearing, comfortable and no acute distress Orientation/consciousness: patient oriented x3 Neck Neck: Yes normal visual inspection Chest Chest palpation & inspection: normal inspection of the chest Resp Effort & Inspection: normal respiratory effort Auscultation: clear to auscultation bilaterally, no crackles, no rales, no rhonchi and no wheezes Cardio Jugular venous distension: no JVD Rate: regular rate Rhythm: regular rhythm Heart sounds: S1 normal heart sound present, S2 normal heart sound present, no murmurs and no rubs Neuro General: patient oriented x3 Extrem General: Yes normal to inspection, No no pedal edema and No calf tenderness Psych Appearance: grossly normal Mental Status: mental status grossly normal Speech and movement: Normal speech and movement present Assessment & Plan Assessment & Plan (1) PAF (paroxysmal atrial fibrillation): Code(s): I48.0 - Paroxysmal atrial fibrillation Plan: Two documented episodes of paroxysmal atrial fibrillation, symptomatic. She was started on carvedilol for heart rate control and Eliquis for anticoagulation. She underwent a cardiac event monitor on 04/11/2023 for 30 days showing sinus rhythm with average heart rate 70 1%, evidence of atrial fibrillation, burden less than 1%, rate up to 156 with AFib. She had echocardiogram on 05/09/2023 showing EF 55-60%, mild aortic stenosis, mild dilation of the ascending aorta. Reviewed results with her in detail. At this visit she tells me she has not been taking carvedilol as she did not get it refilled once her initial bottle ran out. She also stopped Eliquis due to hematuria. She is currently under the care of a urologist for renal calculi and was told to not restart Eliquis as of yet. She has an upcoming ultrasound and plans to see urology again in a few weeks. At that time restart of Eliquis will be determined. Patient informed of the importance of each medication. Will restart carvedilol at this time. It seems carvedilol was being used instead of metoprolol as it will provide more blood pressure control. Home blood pressures are elevated. Stroke risk with AFib reviewed with her and she does state understanding. She is interested in natural therapies and will be looking into this. Informed her full anticoagulation is the only proven method for stroke risk reduction with atrial fibrillation. She will notify this office if she has ongoing episodes recurrent atrial fibrillation. Emergency care if ever needed for symptoms. Cardiology follow-up in 6 months, sooner if needed (2) Renal calculus, bilateral: Code(s): N20.0 - Calculus of kidney Plan: Following with urologist in [place] (3) Essential hypertension: Code(s): I10 - Essential (primary) hypertension Plan: Mild elevation today. Home blood pressures elevated. Will be restarting carvedilol. Will continue to monitor blood pressures at home and call for any concerns Medications: Changed From carvedilol must administer with a meal/food 6.25 mg PO BID 60 tabs 0RF To carvedilol must administer with a meal/food 6.25 mg PO BID 90 days 180 tabs 3RF From apixaban (Eliquis) 5 mg PO BID 60 tabs 3RF To apixaban (Eliquis) 5 mg PO BID 90 days 180 tabs 3RF Coding Level of Care Code Est Pt Level 3 (56365) Diagnoses PAF (paroxysmal atrial fibrillation) I48.0 Renal calculus, bilateral N20.0 Essential hypertension I10 Time Spent (min) 26
[2023-06-05 15:42] VITALS: BP 138/78; PULSE 74; BMI 37.6
== END 2023-06-05 16:25 | disposition home or self-care (01) ==
PROVIDERS: PCP Internal Medicine; Visit Provider Nurse Practitioner Family
DX: I48.0 Paroxysmal atrial fibrillation (principal); N20.0 Calculus of kidney; I10 Essential (primary) hypertension
CPT/HCPCS: 99213

== ENCOUNTER → 2023-06-05 15:35 | Outpatient (BNVA) | payer OTHER, SELFPAY | PROVIDERS: PCP Internal Medicine; Visit Provider Nurse Practitioner Family ==

== ENCOUNTER 2023-11-19 12:53 | Outpatient (REF) | payer OTHER, SELFPAY ==
[2023-11-19 16:13] LABS: MANUAL DIFF FLAG NO
[2023-11-19 16:22] LABS: Basophils Percent Auto 0.3 % (0-2); Eosinophils Absolute Auto 0.1 X10*3/uL (0.0-0.4); Eosinophils Percent Auto 1.6 % (0-4); Hematocrit 39.7 % (37.0-47.0); Hemoglobin 13.5 g/dl (12.0-16.0); Imm Gran Abs Auto 0.02 X10*3/uL (0.00-0.03); Imm Gran Pct Auto 0.3 % (0.0-0.4); Lymphocytes Absolute Auto 1.9 X10*3/uL (1.2-4.9); Lymphocytes Percent Auto 29.7 % (20-40); Mean Corpuscular Hemoglobin 28.4 pg (27.0-33.0); Mean Corpuscular Volume 83.4 fL (80.0-98.0); Mean Platelet Volume 9.8 fL (9.4-12.3); Monocytes Absolute Auto 0.5 X10*3/uL (0.1-1.2); Monocytes Percent Auto 7.5 % (2-11); Neutrophils Absolute Auto 3.8 x10*3/uL (2.0-8.3); Neutrophils Percent Auto 60.6 % (45-73); Platelet Count 252 X10*3/uL (160-400); Red Blood Count 4.76 X10*6/uL (4.20-5.50); Red Cell Distribution Width 13.1 % (11.0-16.0); White Blood Count 6.2 X10*3/uL (4.8-10.8)
[2023-11-19 17:23] LABS: Alanine Aminotransferase 19 U/L (0-31); Alkaline Phosphatase 68 U/L (39-117); Anion Gap 12 (12-20); Aspartate Amino Transferase 14 U/L (5-31); Bilirubin Total 0.5 mg/dL (0.0-1.0); Blood Urea Nitrogen 17 mg/dL (9-16); Calcium 9.4 mg/dL (8.4-10.2); Carbon Dioxide 28 mmol/L (22-29); Chloride 105 mmol/L (96-108); Cholesterol 212 mg/dL (<200); Estimated Glomerular Filt Rate > 60; Glucose Fasting 118 mg/dL (60-99); HDL Cholesterol 71 mg/dL (>40); LDL Cholesterol Calculated 119 mg/dL (<100); Potassium 4.3 mmol/L (3.3-5.1); Sodium 141 mmol/L (135-145); Triglycerides 112 mg/dL (<150)
== END 2023-11-19 12:54 | disposition home or self-care (01) ==
LOC: HO.HMGCLDS 12:53
PROVIDERS: PCP Internal Medicine; Visit Provider Internal Medicine
DX: I10 Essential (primary) hypertension (principal); F41.1 Generalized anxiety disorder; G43.909 Migraine, unspecified, not intractable, without status migrainosus; F33.9 Major depressive disorder, recurrent, unspecified; I48.0 Paroxysmal atrial fibrillation
CPT/HCPCS: 36415; 80053; 80061; 85025

== ENCOUNTER 2023-11-21 10:02 | Outpatient (AMB) | payer OTHER, SELFPAY ==
[2023-11-21 10:11] VITALS: BP 124/78; PULSE 67; O2SAT 96; BMI 38.3
--- NOTE | 2023-11-21 10:11 | A.OFFPC_ITS ---
Vital Signs 11/21/23 10:11 Height 5 ft 3 in Weight 216 lb 2 oz BMI 38.3 BP 124/78 Blood Pressure Location Rt brachial Position Sitting Pulse 67 Pulse Source Pulse Oximeter Pulse Oximetry (%) 96 Oxygen Delivery Method Room Air Intake Visit Reasons: Annual PE Allergies clavulanic acid [From AUGMENTIN] Adverse Reaction (Mild, Verified 11/21/23 10:14) Irritable Medication List - Last Reconciled 11/21/23 by Maria Isabel Avendano MD albuterol sulfate 90 mcg/actuation 2 puffs PO Q4H PRN apixaban (Eliquis) 5 mg PO BID 90 days carvedilol 6.25 mg PO BID 90 days escitalopram oxalate 10 mg PO DAILY lisinopril 30 mg PO DAILY 90 days Tobacco use date assessed: 11/21/23 Dental Screening Dental Screen Date: 11/21/23 Did you have a dental visit in the last 12 months?: No Did you have a dental problem in the last 6 months where you did not have access to dental care?: No Was dental information given to patient?: No HPI Annual PE HPI Details Patient is a 57-year-old female who was last seen January of last year and did not come in for follow-up after that Came in today for physical examination Patient have atrial fibrillation and is established with Cardiology, she was on long-term anticoagulants she started having bleeding in urine , so it was stopped she had stents put in in ureter due to renal calculi she has apt coming up with Cardio this month Her heart rate is regular at this time Taking lisinopril for blood pressure control And Lexapro for anxiety and depression Patient also have impaired fasting sugar, she had labs done recently, reviewed fasting sugar is 118. BMI is elevated need to lose weight Mammogram will be due in December of this year And colonoscopy is due in 2026 Follow-up 4 months [facility] Medical History (Updated 11/21/23 @ 11:28 by Maria Isabel Avendano MD) Encounter for general adult medical examination with abnormal findings Itching of ear Hospital discharge follow-up Biliary colic Cholelithiasis RUQ abdominal pain Obesity due to excess calories Change in bowel function Rectal bleed Encounter for routine gynecological examination Impaired fasting blood sugar Ex-smoker Shortness of breath Premature atrial contraction Obesity Fear of flying History of renal calculi Migraine headache Anxiety, generalized Surgical History Hx laparoscopic cholecystectomy (01/13/23) Hx of colonoscopy History of ureter stent History of cystoscopy History of appendectomy History of tonsillectomy History of section History of knee surgery History of lithotripsy History of oophorectomy Family History Father Unknown family medical history Mother COPD (chronic obstructive pulmonary disease) HTN (hypertension) CVD (cardiovascular disease) Son No problems noted. Daughter No problems noted. 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 1. Little interest or pleasure in doing things: several days 2. Feeling down, depressed, or hopeless: several days 3. Trouble falling or staying asleep, or sleeping too much: several days 4. Feeling tired or having little energy: several days 5. Poor appetite or overeating: several days 6. Feeling bad about yourself - or that you are a failure or have let yourself or your family down: several days 7. Trouble concentrating on things, such as reading the newspaper or watching t elevision: not at all 8. Moving or speaking so slowly that other people could have noticed. Or the opposite - being so fidgety or restless that you have been moving around a lot more than usual: not at all 9. Thoughts that you would be better off or of hurting yourself in some way: not at all Total score: 6 Source: Developed by Drs. Frederick Benton, Vaishnavi Cadena, Reza Mandel and colleagues, with an educational low from [employer]. Thrive Questionnaire Date Thrive assessed: 11/21/23 I am a: Patient What is your living situation today?: I have a steady place to live Within the past 12 months, did the food you bought not last and you didn't have the money to get more?: Never true Within the past 12 months, did you worry whether your food would run out before you got money to buy more?: Never true Do you have trouble paying for medicines?: No Do you have trouble getting transportation to medical appointments?: No Do you have trouble paying your heating and electricity bill?: No Do you have trouble taking care of your child, family member or friend?: No Do you have trouble with day-to-day activities such as bathing, preparing meals, shopping, managing finances, etc.?: No Are you currently unemployed and looking for a job?: No Are you interested in more education?: No THRIVE Score: 0 AUDIT C Alcohol Use Questionnaire (AUDIT-C) 1. How often do you have a drink containing alcohol?: Monthly or less 2. How many drinks containing alcohol do you have on a typical day when you are drinking?: 1 or 2 3. How often do you have six or more drinks on one occasion?: Never Total Score: 1 ADRIANNA-7 AMB Questionnaire ADRIANNA-7 Date ADRIANNA - 7 assessed: 11/21/23 Feeling nervous, anxious, or on edge: 1 = Several days Not being able to stop or control worryin = Several days Worrying too much about different things: 1 = Several days Trouble relaxin = Several days Being so restless that it is hard to sit still: 0 = Not at all Becoming easily annoyed or irritable: 0 = Not at all Feeling afraid as if something awful might happen: 0 = Not at all Total ADRIANNA-7 score (0-4 normal; 5-9 mild; 10-14 moderate; 15-21 severe): 4 Source: Developed by Drs. Frederick Benton, Vaishnavi Cadena, Reza Mandel and colleagues, with an educational low from [employer]. Review of Systems Const Denies chills, Denies fever(s) and Denies headache(s) Eyes Denies blurry vision ENT Denies headache(s), Denies nasal discharge, Denies nasal obstruction, Denies odynophagia and Denies sinus pain Card Denies chest pain at rest and Denies chest pain with activity Resp Denies cough and Denies hemoptysis GI Denies diarrhea, Denies odynophagia, Denies vomiting and Denies hematemesis Reports as per HPI Musc Denies abnormal gait Skin/Breast Reports as per HPI Neuro Denies Neuro-related abnormal movements, Denies Abnormal speech present, Denies abnormal gait, Denies headache(s) and Denies Sensory deficit (Neuro) Psych Denies mood swings and Denies paranoia Endo Reports as per HPI Herve/Lymph Reports as per HPI Aller/Immun Reports as per HPI Physical exam (Primary Care) Vital Signs: Last Vital Signs Pulse 67 11/21/23 10:11 BP 124/78 11/21/23 10:11 Pulse Ox 96 11/21/23 10:11 Oxygen Delivery Method Room Air 11/21/23 10:11 BMI result Body Mass Index 38.3 Tobacco/Smoking Status: Tobacco use Status Tobacco use date assessed 11/21/23 11/21/23 10:16 Patient Tobacco Use Status Never used Tobacco 11/21/23 10:12 Tobacco use type Cigarette 11/21/23 10:12 e-Cigarette/Vaping Use Never Used 11/21/23 10:12 PHQ-9: PHQ-9 Score PHQ-9: Total score 6 11/21/23 10:23 Thrive Assessment: Date of Thrive Assessment Date Thrive assessed 11/21/23 11/21/23 10:19 Const General: cooperative, comfortable and no acute distress Orientation/consciousness: patient oriented x3 HENMT Head: Yes normocephalic and Yes atraumatic Eyes General: appearance normal, both eyes and all related structures Pupils: Equal, round and reactive pupils present EOM: EOMs intact bilaterally Neck Neck: Yes supple and No lymphadenopathy Thyroid: Thyroid normal Lymphatic: no lymphadenopathy noted Resp Effort & Inspection: normal respiratory effort and able to speak in complete sen tences Auscultation: clear to auscultation bilaterally GI Palpation (GI): Soft to palpation and nontender Auscultation: normal bowel sounds General: Yes no CVA tenderness Back/Spine/Pelvis Back: no CVA tenderness Skin General skin exam: elasticity normal and turgor normal Neuro General: patient oriented x3 and gait normal Cranial nerves: Yes Equal, round and reactive pupils present Speech: No Abnormal speech present Sensory Exam: No Sensory deficit (Neuro) Coordination: tandem gait normal and Romberg test negative Extrem General: Yes normal exam except as noted and No edema Assessment and Plan Assessment & Plan (1) Encounter for general adult medical examination with abnormal findings: Code(s): Z00.01 - Encounter for general adult medical examination with abnormal findings (2) PAF (paroxysmal atrial fibrillation): Code(s): I48.0 - Paroxysmal atrial fibrillation (3) Major depression, recurrent: Code(s): F33.9 - Major depressive disorder, recurrent, unspecified Qualifiers: Active/Remission status: in full remission Qualified Code(s): F33.42 - Major depressive disorder, recurrent, in full remission (4) Obesity: Code(s): E66.9 - Obesity, unspecified Qualifiers: Obesity type: due to excess calories Obesity classification: adult class 2 (BMI 35 - 39.9) Serious obesity comorbidity presence: with serious comorbidity Body mass index: BMI 38.0-38.9 Qualified Code(s): E66.01 - Morbid (severe) obesity due to excess calories; Z68.38 - Body mass index [BMI] 38.0- 38.9, adult (5) Anxiety, generalized: Code(s): F41.1 - Generalized anxiety disorder (6) Essential hypertension: Code(s): I10 - Essential (primary) hypertension (7) Renal calculus, bilateral: Code(s): N20.0 - Calculus of kidney Plan Patient is a 57-year-old female who was last seen January of last year and did not come in for follow-up after that Came in today for physical examination Patient have atrial fibrillation and is established with Cardiology, she was on long-term anticoagulants she started having bleeding in urine , so it was stopped she had stents put in in ureter due to renal calculi she has apt coming up with Cardio this month Her heart rate is regular at this time Taking lisinopril for blood pressure control And Lexapro for anxiety and depression Patient also have impaired fasting sugar, she had labs done recently, reviewed fasting sugar is 118. BMI is elevated need to lose weight Mammogram will be due in December of this year And colonoscopy is due in 2026 Follow-up 4 months Medications: Changed From escitalopram oxalate patient need follow up apt 10 mg PO DAILY 30 tabs 0RF To escitalopram oxalate 20 mg PO DAILY 90 tabs 0RF Coding Level of Care Code Est Pt Prev Care 40-64y(89399) Diagnoses Encounter for general adult medical examination with abnormal findings Z00.01 PAF (paroxysmal atrial fibrillation) I48.0 Recurrent major depressive disorder, in full remission F33.42 Active/Remission status: in full remission Class 2 severe obesity due to excess calories with serious comorbidity and body mass index (BMI) of 38.0 to 38.9 in adult E66.01; Z68.38 Obesity type: due to excess calories Obesity classification: adult class 2 (BMI 35 - 39.9) Serious obesity comorbidity presence: with serious comorbidity Body mass index: BMI 38.0-38.9 Anxiety, generalized F41.1 Essential hypertension I10 Renal calculus, bilateral N20.0
== END 2023-11-21 10:36 | disposition home or self-care (01) ==
PROVIDERS: Visit Provider Internal Medicine
DX: Z00.01 Encounter for general adult medical examination with abnormal findings (principal); I48.0 Paroxysmal atrial fibrillation; F33.42 Major depressive disorder, recurrent, in full remission; E66.01 Morbid (severe) obesity due to excess calories; Z68.38 Body mass index [BMI] 38.0-38.9, adult; F41.1 Generalized anxiety disorder; I10 Essential (primary) hypertension; N20.0 Calculus of kidney
CPT/HCPCS: 99396

== ENCOUNTER 2023-12-05 12:51 | Outpatient (AMB) | payer OTHER, SELFPAY ==
[2023-12-05 12:58] VITALS: BP 120/74; PULSE 67; BMI 38.7
--- NOTE | 2023-12-05 12:58 | A.OFFVIS_ITS ---
Vital Signs 12/05/23 12:58 Height 5 ft 3 in Weight 218 lb 4.122 oz BMI 38.7 BP 120/74 Blood Pressure Location Lt brachial Position Sitting Pulse 67 Pulse Source Pulse Oximeter Intake Visit Reasons: 6M follow up Environmental Science Technician Required: No Allergies clavulanic acid [From AUGMENTIN] Adverse Reaction (Mild, Verified 12/05/23 13:00) Irritable Medication List - Last Reconciled 12/05/23 by Shahla Burns, [employer] COMMISSIONER-C albuterol sulfate 90 mcg/actuation 2 puffs PO Q4H PRN carvedilol 6.25 mg PO BID 90 days escitalopram oxalate 20 mg PO DAILY lisinopril 30 mg PO DAILY 90 days HPI HPI 6M follow up: Details: Melida is a 57-year-old female past medical history of hypertension, paroxysmal atrial fibrillation, renal calculi with prior hematuria who presents for follow- up. Today she reports that since her last visit in May she has noticed 2 episodes of heart palpitations. When she has it she can feel the palpitation and some mild shortness of breath. She tells me the episodes do not last long. She has been taking her carvedilol as directed. She had previously stopped the Eliquis due to hematuria. She had a cystoscopy with kidney stone removal. According to her a Follow-up renal ultrasound continues to show renal calculi. She has not had any recent hematuria or discomfort. No neurological changes. No chest discomfort at rest or with activity. No shortness of breath, presyncope, syncope, PND, orthopnea or edema. Blood pressures have been better controlled. [facility] Medical History Encounter for general adult medical examination with abnormal findings Itching of ear Hospital discharge follow-up Biliary colic Cholelithiasis RUQ abdominal pain Obesity due to excess calories Change in bowel function Rectal bleed Encounter for routine gynecological examination Impaired fasting blood sugar Ex-smoker Shortness of breath Premature atrial contraction Obesity Fear of flying History of renal calculi Migraine headache Anxiety, generalized Surgical History Hx laparoscopic cholecystectomy (01/13/23) Hx of colonoscopy History of ureter stent History of cystoscopy History of appendectomy History of tonsillectomy History of section History of knee surgery History of lithotripsy History of oophorectomy Family History Father Unknown family medical history Mother COPD (chronic obstructive pulmonary disease) HTN (hypertension) CVD (cardiovascular disease) Son No problems noted. Daughter No problems noted. 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 Cognitive needs: No Hearing needs: No Vision needs: Yes Review of Systems Const All systems reviewed & are unremarkable except as noted in HPI and below ENT Denies dizziness Card Details: occassional palpitations Denies chest pain, Denies chest pain at rest, Denies chest pain with activity, Denies rapid heart rate, Denies pedal edema, Denies edema, Denies leg edema, Denies lightheadedness, Denies palpitations, Denies dyspnea, Denies dyspnea on exertion and Denies orthopnea Resp Denies cough, Denies dyspnea and Denies dyspnea on exertion GI Denies hematochezia and Denies change in stool character Details: has kidney stones in kidney still Musc Denies abnormal gait, Denies limited range of motion, Denies muscle cramps, Denies muscle weakness, Denies numbness, Denies radiating pain into limb, Denies stiffness and Denies tingling Neuro Denies abnormal gait, Denies dizziness, Denies numbness and Denies tingling Endo Denies palpitations Physical Exam Vital Signs: Last Vital Signs Pulse 67 12/05/23 12:58 BP 120/74 12/05/23 12:58 BMI result Body Mass Index 38.7 Const General: cooperative, healthy appearing, comfortable and no acute distress Orientation/consciousness: patient oriented x3 Neck Neck: Yes normal visual inspection and Yes no JVD Resp Effort & Inspection: normal respiratory effort Auscultation: clear to auscultation bilaterally, no crackles, no rales, no rhonchi and no wheezes Cardio Jugular venous distension: no JVD Rate: regular rate Rhythm: regular rhythm Heart sounds: S1 normal heart sound present, S2 normal heart sound present, no murmurs and no rubs Peripheral pulses: Peripheral pulses 2+ throughout Neuro General: patient oriented x3 Extrem General: Yes normal to inspection, No no pedal edema and No calf tenderness Psych Appearance: grossly normal Mental Status: mental status grossly normal Speech and movement: Normal speech and movement present Assessment & Plan Assessment & Plan (1) PAF (paroxysmal atrial fibrillation): Code(s): I48.0 - Paroxysmal atrial fibrillation Category: Medical Plan: History of documented episodes of paroxysmal atrial fibrillation, symptomatic. She was started on carvedilol for heart rate control and Eliquis for anticoagulation. She underwent a cardiac event monitor on 04/11/2023 for 30 days showing sinus rhythm with average heart rate 70 1%, evidence of atrial fibrillation, burden less than 1%, rate up to 156 with AFib. She had echocardiogram on 05/09/2023 showing EF 55-60%, mild aortic stenosis, mild dilation of the ascending aorta. On follow-up visit she told me she was not been taking carvedilol as she did not get it refilled once her initial bottle ran out. She also stopped Eliquis due to hematuria. She is currently under the care of a urologist for renal calculi and has since undergone a cystoscopy with stone removal. She tells me a follow-up renal ultrasound continues to show renal calculi. She has not had recent hematuria or discomfort. Since last visit in May she has felt 2 episodes of heart palpitations likely consistent with AFib. Pulse is very regular on examination. At this time will have her continue current dose of carvedilol. Strongly recommended restart of Eliquis 5 mg b.i.d. to reduce stroke risk. Risk of stroke with atrial fibrillation reviewed with her in detail. She will notify this office if she has ongoing episodes recurrent atrial fibrillation. She may require antiarrhythmic going forward. Emergency care if ever needed for symptoms. Cardiology follow-up in 6 months, sooner if needed (2) Renal calculus, bilateral: Code(s): N20.0 - Calculus of kidney Category: Medical Plan: Following with urologist in [place] (3) Essential hypertension: Code(s): I10 - Essential (primary) hypertension Category: Medical Plan: Well controlled at this time. No medication changes made. Continue carvedilol and lisinopril at current dose. Plan Time spent on chart review, documentation, interview and assessment Coding Level of Care Code Est Pt Level 4 (15793) Diagnoses PAF (paroxysmal atrial fibrillation) I48.0 Renal calculus, bilateral N20.0 Essential hypertension I10 Time Spent (min) 30
== END 2023-12-05 13:31 | disposition home or self-care (01) ==
PROVIDERS: PCP Internal Medicine; Visit Provider Nurse Practitioner Family
DX: I48.0 Paroxysmal atrial fibrillation (principal); N20.0 Calculus of kidney; I10 Essential (primary) hypertension
CPT/HCPCS: 99214

== ENCOUNTER → 2023-12-05 12:51 | Outpatient (BNVA) | payer OTHER, SELFPAY | PROVIDERS: PCP Internal Medicine; Visit Provider Nurse Practitioner Family ==

== ENCOUNTER 2024-01-02 13:20 | Outpatient (REF) | payer OTHER, SELFPAY ==
--- NOTE | ~2024-01-02 | MM_ITS ---
EXAMINATION: MM SCREENING DIGITAL BREAST TOMOSYNTHESIS, BILATERAL CLINICAL INFORMATION: Screening. Asymptomatic. COMPARISON: Mammography: This study is compared with prior exams dating back to 2018. TECHNIQUE: Digital breast tomosynthesis is performed in both the craniocaudal and mediolateral oblique views along with computer-aided detection (CAD). Synthesized 2D images are generated from the tomosynthesis. FINDINGS: There are scattered areas of fibroglandular density (ACR BI-RADS breast composition Category b). There are no significant masses, abnormal calcifications, or other abnormalities. There is a benign, peripherally calcified oil cyst in the medial aspect of the left breast. MM/MM tomosynthesis screening BI IMPRESSION: No mammographic evidence of malignancy. ASSESSMENT: BI-RADS BI-RADS 1 - Negative RECOMMENDATION: Routine annual mammography screening. 1 year F/U This examination should not preclude the clinical evaluation of a suspicious palpable abnormality. This patient's information was entered into a reminder system with a target due date for their next mammogram.
== END 2024-01-02 13:21 | disposition home or self-care (01) ==
LOC: HO.MAMMO 13:20
PROVIDERS: PCP Internal Medicine; Visit Provider Internal Medicine
DX: Z12.31 Encounter for screening mammogram for malignant neoplasm of breast (principal)
CPT/HCPCS: 77063; 77067

== ENCOUNTER → 2024-01-02 13:30 | Outpatient (BNV) | payer OTHER, SELFPAY | PROVIDERS: PCP Internal Medicine; Visit Provider Radiology Diagnostic Radiology | DX: Z12.31 Encounter for screening mammogram for malignant neoplasm of breast (principal) | CPT/HCPCS: 77063; 77067 ==

== ENCOUNTER 2024-03-17 06:03 | Outpatient (REF) | payer OTHER, SELFPAY ==
[2024-03-17 10:32] LABS: Estimated Average Glucose 108 mg/dL; Hemoglobin A1c % 5.4 % (<6.0)
[2024-03-17 10:54] LABS: Alanine Aminotransferase 16 U/L (0-31); Albumin Level 4.2 g/dL (3.5-5.0); Alkaline Phosphatase 75 U/L (39-117); Anion Gap 13 (12-20); Aspartate Amino Transferase 12 U/L (5-31); Bilirubin Total 0.3 mg/dL (0.0-1.0); Blood Urea Nitrogen 23 mg/dL (9-16); Calcium 9.9 mg/dL (8.4-10.2); Carbon Dioxide 28 mmol/L (22-29); Chloride 105 mmol/L (96-108); Cholesterol 204 mg/dL (<200); Estimated Glomerular Filt Rate > 60; Glucose Fasting 101 mg/dL (60-99); HDL Cholesterol 75 mg/dL (>40); LDL Cholesterol Calculated 112 mg/dL (<100); Potassium 4.1 mmol/L (3.3-5.1); Sodium 142 mmol/L (135-145); Total Protein 6.9 g/dL (6.5-8.0); Triglycerides 86 mg/dL (<150)
== END 2024-03-17 06:04 | disposition home or self-care (01) ==
LOC: HO.HMGCLDS 06:03
PROVIDERS: PCP Internal Medicine; Visit Provider Internal Medicine
DX: R73.01 Impaired fasting glucose (principal); I10 Essential (primary) hypertension
CPT/HCPCS: 36415; 80053; 80061; 83036

== ENCOUNTER 2024-03-19 10:28 | Outpatient (AMB) | payer OTHER, SELFPAY ==
[2024-03-19 10:30] VITALS: BP 142/82; PULSE 84; O2SAT 96; BMI 38.2
--- NOTE | 2024-03-19 10:30 | MHC.PC.OV ---
Vital Signs 03/19/24 10:30 Height 5 ft 3 in Weight 215 lb 8 oz BMI 38.2 BP 142/82 H Blood Pressure Location Rt brachial Position Sitting Pulse 84 Pulse Source Pulse Oximeter Pulse Oximetry (%) 96 Oxygen Delivery Method Room Air Intake Visit Reasons: 4M F/U Allergies clavulanic acid [From AUGMENTIN] Adverse Reaction (Mild, Verified 03/19/24 10:30) Irritable Medication List - Last Reconciled 03/19/24 by Maria Isabel Avendano MD albuterol sulfate 90 mcg/actuation 2 puffs PO Q4H PRN apixaban (Eliquis) 2.5 mg PO BID carvedilol 6.25 mg PO BID 90 days escitalopram oxalate 20 mg PO DAILY lisinopril 30 mg PO DAILY 90 days Tobacco use date assessed: 03/19/24 Dental Screening Dental Screen Date: 03/19/24 Did you have a dental visit in the last 12 months?: Yes Did you have a dental problem in the last 6 months where you did not have access to dental care?: No Was dental information given to patient?: Patient has dentist HPI 4M F/U HPI Details Patient is a 58-year-old female came in today for her regular follow-up appointment Patient is taking Lexapro for anxiety and depression She is having more depression these days She want to go up on Lexapro but she is already taking 20 mg, during the visit she said she is taking 10 however reviewing the medication list again I see that it is 20 We will reach out to the patient and see if she is willing to add medication to Lexapro 20 mg Obesity with BMI of 38.2 Patient want to start Wegovy injections, side effect of medication reviewed with the patient Including pancreatitis and thyroid cancer along with allergic reaction If she picks up the medication she will give us a call and we will book 4 month follow-up appointment She already know how to give herself injections Paroxysmal atrial fibrillation, patient is on Eliquis through Cardiology She had bilateral ureteral stents placed through Urology, they are out now Patient says that the procedure was very painful Patient have impaired fasting sugar, recently had labs done her sugar is 101 LDL is 112 She had imaging done before the stents which showed liver cysts She had ultrasound of abdomen last year which showed only 1 cyst of 1.1 cm She is complaining of discomfort right side off and on We can repeat ultrasound to re-evaluate the size Patient is currently going through a stomach bug in his feeling nauseous and have mild diarrhea Abdomen exam is benign [facility] Medical History Impaired fasting blood sugar Encounter for general adult medical examination with abnormal findings Itching of ear Hospital discharge follow-up Biliary colic Cholelithiasis RUQ abdominal pain Obesity due to excess calories Change in bowel function Rectal bleed Encounter for routine gynecological examination Ex-smoker Shortness of breath Premature atrial contraction Obesity Fear of flying History of renal calculi Migraine headache Anxiety, generalized Surgical History Hx laparoscopic cholecystectomy (01/13/23) Hx of colonoscopy History of ureter stent History of cystoscopy History of appendectomy History of tonsillectomy History of section History of knee surgery History of lithotripsy History of oophorectomy Family History Father Unknown family medical history Mother COPD (chronic obstructive pulmonary disease) HTN (hypertension) CVD (cardiovascular disease) Son No problems noted. Daughter No problems noted. 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 1. Little interest or pleasure in doing things: not at all 2. Feeling down, depressed, or hopeless: not at all 3. Trouble falling or staying asleep, or sleeping too much: not at all 4. Feeling tired or having little energy: not at all 5. Poor appetite or overeating: not at all 6. Feeling bad about yourself - or that you are a failure or have let yourself or your family down: not at all 7. Trouble concentrating on things, such as reading the newspaper or watching television: not at all 8. Moving or speaking so slowly that other people could have noticed. Or the opposite - being so fidgety or restless that you have been moving around a lot more than usual: not at all 9. Thoughts that you would be better off or of hurting yourself in some way: not at all Total score: 0 Depression Screening Interpretation: Negative Depression Screening Done: Yes 83561 - PHQ-9 Billing: Yes Source: Developed by Drs. Frederick Benton, Vaishnavi Cadena, Reza Mandel and colleagues, with an educational low from [employer]. Thrive Questionnaire Date Thrive assessed: 03/19/24 I am a: Patient What is your living situation today?: I have a steady place to live Within the past 12 months, did the food you bought not last and you didn't have the money to get more?: Never true Within the past 12 months, did you worry whether your food would run out before you got money to buy more?: Never true Do you have trouble paying for medicines?: No Do you have trouble getting transportation to medical appointments?: No Do you have trouble paying your heating and electricity bill?: No Do you have trouble taking care of your child, family member or friend?: No Do you have trouble with day-to-day activities such as bathing, preparing meals, shopping, managing finances, etc.?: No Are you currently unemployed and looking for a job?: No Are you interested in more education?: No Please select the resources that you would like help with: Housing/Penitentiary Currently or been in a relationship where the following occur: No concerns reported THRIVE Score: 0 AUDIT C Alcohol Use Questionnaire (AUDIT-C) 1. How often do you have a drink containing alcohol?: Monthly or less 2. How many drinks containing alcohol do you have on a typical day when you are drinking?: 1 or 2 3. How often do you have six or more drinks on one occasion?: Never Total Score: 1 Score Reviewed/Action Taken: Yes ADRIANNA-7 AMB Questionnaire ADRIANNA-7 Date ADRIANNA - 7 assessed: 03/19/24 Feeling nervous, anxious, or on edge: 0 = Not at all Not being able to stop or control worryin = Not at all Worrying too much about different things: 0 = Not at all Trouble relaxin = Not at all Being so restless that it is hard to sit still: 0 = Not at all Becoming easily annoyed or irritable: 0 = Not at all Feeling afraid as if something awful might happen: 0 = Not at all Total ADRIANNA-7 score (0-4 normal; 5-9 mild; 10-14 moderate; 15-21 severe): 0 Source: Developed by Drs. Frederick Benton, Vaishnavi Cadena, Reza Mandel and colleagues, with an educational low from [employer]. ADRIANNA-7 Assessment Billing ADRIANNA-7 Assessment Tool: ADRIANNA-7 Assessment 25292 Review of Systems Const Denies chills and Denies fever(s) ENT Denies epistaxis and Denies nasal discharge Card Denies chest pain Resp Denies chest congestion, Denies cough and Denies hemoptysis GI Denies diarrhea and Denies nausea Skin/Breast Denies rash Neuro Reports no additional complaints Psych Reports no additional complaints Endo Reports no additional complaints Physical exam (Primary Care) Vital Signs: Last Vital Signs Pulse 84 03/19/24 10:30 BP 142/82 H 03/19/24 10:30 Pulse Ox 96 03/19/24 10:30 Oxygen Delivery Method Room Air 03/19/24 10:30 BMI result Body Mass Index 38.2 Tobacco/Smoking Status: Tobacco use Status Tobacco use date assessed 03/19/24 03/19/24 10:35 Patient Tobacco Use Status Never used Tobacco 03/19/24 10:35 Tobacco use type Cigarette 03/19/24 10:35 e-Cigarette/Vaping Use Never Used 03/19/24 10:35 PHQ-9: PHQ-9 Score PHQ-9: Total score 0 03/19/24 12:44 Depression Screening Interpretation: Negative Thrive Assessment: Date of Thrive Assessment Date Thrive assessed 03/19/24 03/19/24 10:35 Currently or been in a relationship where the following occur: No concerns reported Const General: cooperative, comfortable and no acute distress Orientation/consciousness: patient oriented x3 HENMT Head: Yes normocephalic Eyes General: appearance normal, both eyes and all related structures Neck Neck: Yes supple Resp Effort & Inspection: normal respiratory effort, no cough and no stridor Cardio Rhythm: regular rhythm Heart sounds: S1 normal heart sound present and S2 normal heart sound present Skin General skin exam: turgor normal Neuro General: patient oriented x3, tone normal and moves all extremities Extrem Right lower extremity: no edema Left lower extremity: no edema Assessment and Plan Assessment & Plan (1) Impaired fasting blood sugar: Code(s): R73.01 - Impaired fasting glucose (2) Obesity: Code(s): E66.9 - Obesity, unspecified Qualifiers: Body mass index: BMI 38.0-38.9 Obesity classification: adult class 2 (BMI 35 - 39.9) Obesity type: due to excess calories Serious obesity comorbidity presence: with serious comorbidity Qualified Code(s): E66.01 - Morbid (severe) obesity due to excess calories; Z68.38 - Body mass index [BMI] 38.0-38.9, adult (3) PAF (paroxysmal atrial fibrillation): Code(s): I48.0 - Paroxysmal atrial fibrillation (4) Liver cyst: Code(s): K76.89 - Other specified diseases of liver Plan Patient is a 58-year-old female came in today for her regular follow-up appointment Patient is taking Lexapro for anxiety and depression She is having more depression these days She want to go up on Lexapro but she is already taking 20 mg, during the visit she said she is taking 10 however reviewing the medication list again I see that it is 20 We will reach out to the patient and see if she is willing to add medication to Lexapro 20 mg Obesity with BMI of 38.2 Patient want to start Wegovy injections, side effect of medication reviewed with the patient Including pancreatitis and thyroid cancer along with allergic reaction If she picks up the medication she will give us a call and we will book 4 month follow-up appointment She already know how to give herself injections Paroxysmal atrial fibrillation, patient is on Eliquis through Cardiology She had bilateral ureteral stents placed through Urology, they are out now Patient says that the procedure was very painful Patient have impaired fasting sugar, recently had labs done her sugar is 101 LDL is 112 She had imaging done before the stents which showed liver cysts She had ultrasound of abdomen last year which showed only 1 cyst of 1.1 cm She is complaining of discomfort right side off and on We can repeat ultrasound to re-evaluate the size Patient is currently going through a stomach bug in his feeling nauseous and have mild diarrhea Abdomen exam is benign Medications: New semaglutide (weight loss) (Wegovabena) administer weeks 1 through 4 of therapy 0.25 mg (0.5 mL) subcut QWEEK 2 mL 0RF E66.01 - Morbid (severe) obesity due to excess calories, I48.0 - Paroxysmal atrial fibrillation, R73.01 - Impaired fasting glucose, Z68.38 - Body mass index [BMI] 38.0-38.9, adult Coding Level of Care Code Est Pt Level 4 (49574) Diagnoses Impaired fasting blood sugar R73.01 Class 2 severe obesity due to excess calories with serious comorbidity and body mass index (BMI) of 38.0 to 38.9 in adult E66.01; Z68.38 Body mass index: BMI 38.0-38.9 Obesity classification: adult class 2 (BMI 35 - 39.9) Obesity type: due to excess calories Serious obesity comorbidity presence: with serious comorbidity PAF (paroxysmal atrial fibrillation) I48.0 Liver cyst K76.89 Additional Codes ADRIANNA-7 Assessment Billing - ADRIANNA-7 Assessment Tool: ADRIANNA-7 Assessment 53200 ([id number])
== END 2024-03-19 11:21 | disposition home or self-care (01) ==
PROVIDERS: PCP Internal Medicine; Visit Provider Internal Medicine
DX: R73.01 Impaired fasting glucose (principal); E66.01 Morbid (severe) obesity due to excess calories; I48.0 Paroxysmal atrial fibrillation; Z68.38 Body mass index [BMI] 38.0-38.9, adult; K76.89 Other specified diseases of liver
CPT/HCPCS: 99214

== ENCOUNTER 2024-05-14 12:49 | Outpatient (AMB) | payer OTHER, SELFPAY ==
[2024-05-14 13:02] VITALS: BP 128/62; PULSE 79; BMI 39.0
--- NOTE | 2024-05-14 13:02 | MHC.OFFVIS ---
Vital Signs 05/14/24 13:02 Height 5 ft 3 in Weight 220 lb 7.396 oz BMI 39.0 BP 128/62 Blood Pressure Location Lt brachial Position Sitting Pulse 79 Pulse Source Monitor Intake Visit Reasons: 6 mnth f/up Allergies clavulanic acid [From AUGMENTIN] Adverse Reaction (Mild, Verified 03/19/24 10:30) Irritable Medication List - Last Reconciled 05/14/24 by Shahla Burns NP-C albuterol sulfate 90 mcg/actuation 2 puffs PO Q4H PRN apixaban (Eliquis) 2.5 mg PO BID carvedilol 6.25 mg PO BID 90 days escitalopram oxalate 20 mg PO DAILY lisinopril 30 mg PO DAILY 90 days semaglutide (weight loss) (Wegovy) 0.25 mg (0.5 mL) subcut QWEEK HPI HPI 6 mn f/up: Details: Melida is a 57-year-old female past medical history of hypertension, paroxysmal atrial fibrillation, renal calculi with prior hematuria who presents for follow-up. Today she reports that she has been off her carvedilol since she could not get a refill from the pharmacy. She did have an episode of heart palpitations lasting an hour in March. She has not had any recent hematuria or known renal calculi. No chest discomfort at rest or with activity. No presyncope, syncope, PND, orthopnea or edema. She has noticed increased shortness of breath with exertional activities such as walking and stair climbing. Is trying to work on weight loss but has a sedentary job which makes it more challenging. 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 Takes her meds as directed. [facility] Medical History Impaired fasting blood sugar Encounter for general adult medical examination with abnormal findings Itching of ear Hospital discharge follow-up Biliary colic Cholelithiasis RUQ abdominal pain Obesity due to excess calories Change in bowel function Rectal bleed Encounter for routine gynecological examination Ex-smoker Shortness of breath Premature atrial contraction Obesity Fear of flying History of renal calculi Migraine headache Anxiety, generalized Surgical History Hx laparoscopic cholecystectomy (01/13/23) Hx of colonoscopy History of ureter stent History of cystoscopy History of appendectomy History of tonsillectomy History of section History of knee surgery History of lithotripsy History of oophorectomy Family History Father Unknown family medical history Mother COPD (chronic obstructive pulmonary disease) HTN (hypertension) CVD (cardiovascular disease) Son No problems noted. Daughter No problems noted. 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 Cognitive needs: No Hearing needs: No Vision needs: Yes Review of Systems Const All systems reviewed & are unremarkable except as noted in HPI and below Denies weakness ENT Denies dizziness Card Denies chest pain, Denies chest pain with activity, Denies syncope, Denies rapid heart rate, Denies pedal edema, Denies edema, Denies leg edema, Denies lightheadedness, Denies palpitations, Denies dyspnea, Denies dyspnea on exertion and Denies orthopnea Resp Denies cough, Denies dyspnea and Denies dyspnea on exertion GI Denies hematochezia and Denies change in stool character Musc Denies abnormal gait, Denies muscle cramps, Denies muscle weakness, Denies numbness, Denies radiating pain into limb and Denies tingling Neuro Denies abnormal gait, Denies dizziness, Denies syncope, Denies numbness, Denies tingling and Denies weakness Endo Denies palpitations Physical Exam Vital Signs: Last Vital Signs Pulse 79 05/14/24 13:02 BP 128/62 05/14/24 13:02 BMI result Body Mass Index 39.0 Const General: cooperative, healthy appearing, comfortable and no acute distress Orientation/consciousness: patient oriented x3 Neck Neck: Yes normal visual inspection and Yes no JVD Resp Effort & Inspection: normal respiratory effort Auscultation: clear to auscultation bilaterally, no crackles, no rales, no rhonchi and no wheezes Cardio Jugular venous distension: no JVD Rate: regular rate Rhythm: regular rhythm Heart sounds: S1 normal heart sound present, S2 normal heart sound present, no murmurs and no rubs Peripheral pulses: Peripheral pulses 2+ throughout Neuro General: patient oriented x3 Extrem General: Yes normal to inspection, No no pedal edema and No calf tenderness Psych Appearance: grossly normal Mental Status: mental status grossly normal Speech and movement: Normal speech and movement present Office Procedures EKG Details: Today, read by me, normal sinus rhythm, no acute ST or T-wave abnormality, rate 79, QTC 419 milliseconds [id number], Complete Assessment & Plan Assessment & Plan (1) PAF (paroxysmal atrial fibrillation): Code(s): I48.0 - Paroxysmal atrial fibrillation Category: Medical Plan: History of paroxysmal atrial fibrillation, symptomatic. She has been on carvedilol for heart rate control and Eliquis for anticoagulation. She underwent a cardiac event monitor on 04/11/2023 for 30 days showing sinus rhythm with average heart rate 70 1%, evidence of atrial fibrillation, burden less than 1%, rate up to 156 with AFib. She had echocardiogram on 05/09/2023 showing EF 55-60%, mild aortic stenosis, mild dilation of the ascending aorta. History of having renal calculi and hematuria. This has been stable with no recent bleeding. Eliquis dose in our system currently states 2.5 mg b.i.d. however this will be corrected as her dose should be 5 mg b.i.d.. No bleeding issues at this time. She has been off carvedilol in recent weeks as she could not get a refill. She did have an episode of heart palpitations lasting 1 hour in March. Will have her restart carvedilol (initially 3.125 mg b.i.d. for a few days then going up to 6.25 mg b.i.d..) Emergency care if ever needed for sustained heart palpitations. Cardiology follow-up in 6 months, sooner if needed (2) Renal calculus, bilateral: Code(s): N20.0 - Calculus of kidney Category: Medical Plan: Follows with urologist in [place] (3) Essential hypertension: Code(s): I10 - Essential (primary) hypertension Category: Medical Plan: Normal on exam today however she tells me it typically runs high. She has been off carvedilol. Will be having her restart. Instructed to check her blood pressure at home if she feels lightheadedness which could indicate low BP (4) Aortic stenosis: Code(s): I35.0 - Nonrheumatic aortic (valve) stenosis Category: Medical Plan: Last echo 04/2023 showing mild aortic stenosis. She does report increasing shortness of breath with exertional activities. She does not appear fluid overloaded on examination. Will update echo to re-evaluate EF and aortic stenosis. Plan to call her with results. It is possible her shortness breath is related to deconditioning with her sedentary lifestyle and obesity. Plan Time spent on chart review, documentation, interview and assessment Orders: Orders CA echo transthoracic complete Today I35.0 - Nonrheumatic aortic (valve) stenosis Medications: New apixaban (Eliquis) 5 mg PO BID 90 days 180 tabs 3RF Refilled carvedilol must administer with a meal/food 6.25 mg PO BID 90 days 180 tabs 3RF Coding Level of Care Code Est Pt Level 4 (34672) Complex EM visit Add On G2211 Diagnoses PAF (paroxysmal atrial fibrillation) I48.0 Renal calculus, bilateral N20.0 Essential hypertension I10 Aortic stenosis I35.0 CPT Codes EKG - CPT: 77380-[id number], Complete ([id number]) Time Spent (min) 28
== END 2024-05-14 13:42 | disposition home or self-care (01) ==
PROVIDERS: PCP Internal Medicine; Visit Provider Nurse Practitioner Family
DX: I48.0 Paroxysmal atrial fibrillation (principal); N20.0 Calculus of kidney; I10 Essential (primary) hypertension; I35.0 Nonrheumatic aortic (valve) stenosis
CPT/HCPCS: 93010; 99214

== ENCOUNTER → 2024-05-14 12:49 | Outpatient (BNVA) | payer OTHER, SELFPAY | PROVIDERS: PCP Internal Medicine; Visit Provider Nurse Practitioner Family | DX: I48.0 Paroxysmal atrial fibrillation (principal); I10 Essential (primary) hypertension; I35.0 Nonrheumatic aortic (valve) stenosis; N20.0 Calculus of kidney; Z79.01 Long term (current) use of anticoagulants | CPT/HCPCS: 93005 ==

== ENCOUNTER → 2024-06-11 13:54 | Outpatient (REF) | payer OTHER, SELFPAY ==
--- NOTE | 2024-06-11 14:01 | CA_ITS ---
Transthoracic Echocardiogram Patient (Last, First, Middle): Melida Chapa A Gender: Female Date of : 1965 Age: 58 Procedure Date: 06/11/2024 Procedure Type: Transthoracic Echocardiogram Location: OP Height: 162.56 cm Weight: 99.79 kg BSA: 2.04 m2 Heart Rate: 69 bpm BP: 124 / 64 mmHg Youth Probation Officer: SB Referring MD: Shahla Burns TRANSMISSION REBUILDERCecilC Symptoms: I35.0 - Nonrheumatic aortic (valve) stenosis Study Quality: Adequate w contrast ECG Rhythm: Sinus Conclusions: - The left ventricular systolic function is normal. The visually estimated ejection fraction is between 65-70%. - Possible early aortic stenosis. Findings Procedure Information Contrast agent, definity, is being given per protocol without apparent complications. Left Ventricle Normal left ventricular cavity size. There is mildly increased left ventricular wall thickness. The left ventricular systolic function is normal. The visually estimated ejection fraction is between 65-70%. There is no evidence of regional wall motion abnormalities. Diastolic function is normal for age. Right Ventricle Normal right ventricular cavity size and systolic function. Atria Both atria are normal in size. Aortic Valve The aortic valve was not well visualized. There is no aortic valve regurgitation. Possible early aortic stenosis. Mitral Valve There is mild mitral annular calcification. There is no mitral valve regurgitation. There is no mitral valve stenosis. Pulmonic Valve The pulmonic valve is likely normal. Tricuspid Valve There is no tricuspid valve regurgitation. Tricuspid regurgitation envelope is inadequate for calculation of right ventricular systolic pressure. Great Vessels The asc aorta is normal in size. Venous The inferior vena cava is normal in size and collapses greater than 50% with inspiration. Pericardium/Pleural There is no evidence of pericardial effusion. Prior Study Comparison No significant change compared to prior study dated: 05/09/2023. Measurements 2D Linear Measurements IVSd: 1.16 0.6-0.9/0.6-1.0 cm LVIDd: 4.39 3.9-5.3/4.2-5.9 cm LVIDd Index: 2.15 2.4-3.2/2.2-3.1 cm/m2 LVIDs: 2.99 2.0-3.6 cm LVPWd: 1.19 0.7-1.1 cm LA Diam: 4.00 2.7-3.8/3.0-4.0 cm LAIDs Index: 1.96 1.5-2.3 cm/m2 LV Mass: 230.44 67-162/88-224 g LV Mass Index: 112.96 43-95/49-115 g/m2 LVOT Diam: 2.30 3.0+(-)1.3 cm 2D Systolic Function EF 4C: 72.10 >55% EF 2C: 68.80 >55% EF BiP: 71.40 >55% Mitral Valve MV Pk E: 0.91 MV PK A: 1.05 MV Decel Time: 232.00 E/A: 0.90 E'Lateral: 6.85 E'Medial: 6.20 E/E' Med: 14.70 E/E' Lat: 13.30 PHT: 68.00 MVA PHT: 3.24 Decel Converse: 3.93 Aortic Valve AoV Pk Niraj: 1.85 AoV Mn Niraj: 1.34 AoV VTI: 0.43 AoV Pk Grad: 14.00 Aov Mn Grad: 8.00 ARTHUR Cont.VTI: 2.06 LVOT LVOT Pk Niraj: 0.88 LVOT Mn Niraj: 0.65 LVOT VTI: 0.22 LVOT Pk Grad: 3.00 LVOT Mn Grad: 2.00 LVOT Diam: 2.30 LVOT Area: 4.15 Diastolic Function MV Pk E: 0.91 MV Pk A: 1.05 E/A: 0.90 E'Medial: 6.20 E/E' Med: 14.70 E' Laterial: 6.85 E/E' Lat: 13.30 Right Ventricle TAPSE (mm): 22.40 TVS' Niraj: 12.60 Tricuspid Valve RA Press: 3.00 Great Vessels Aorta Sinus of Valsalva: 3.50 2.0-3.5 cm Ao Asc: 3.40 2.1-3.4 cm Pulmonary Veins Pulm Vein S/D 1.60 Pulmonary Valve PV Pk Niraj: 0.86 Peak PV Grad: 3.00 Updated in Other Vendor System with Status of Final Jacob Rios MD electronically signed on 06/12/2024 11:40:30 AM with status of Final
== END ==
LOC: HO.CARD 13:54
PROVIDERS: PCP Internal Medicine; Visit Provider Nurse Practitioner Family
DX: I35.0 Nonrheumatic aortic (valve) stenosis (principal)
CPT/HCPCS: 93306; Q9957

== ENCOUNTER → 2024-06-11 14:01 | Outpatient (BNV) | payer OTHER, SELFPAY | PROVIDERS: PCP Internal Medicine; Visit Provider Internal Medicine | DX: I35.0 Nonrheumatic aortic (valve) stenosis (principal); I34.81 Nonrheumatic mitral (valve) annulus calcification | CPT/HCPCS: 93306 ==

== ENCOUNTER 2024-07-02 12:07 | Outpatient (AMB) | payer OTHER, SELFPAY ==
--- NOTE | 2024-07-02 12:09 | MHC.PC.OV ---
Vital Signs 07/02/24 12:11 Height 5 ft 3 in Weight 220 lb 6 oz BMI 39.0 BP 124/68 Blood Pressure Location Rt brachial Position Sitting Pulse 63 Pulse Source Pulse Oximeter Pulse Oximetry (%) 98 Oxygen Delivery Method Room Air Intake Visit Reasons: 3M F/U Allergies clavulanic acid [From AUGMENTIN] Adverse Reaction (Mild, Verified 03/19/24 10:30) Irritable Medication List - Last Reconciled 07/02/24 by Maria Isabel Avendano MD albuterol sulfate 90 mcg/actuation 2 puffs PO Q4H PRN apixaban (Eliquis) 5 mg PO BID 90 days carvedilol 6.25 mg PO BID 90 days escitalopram oxalate 20 mg PO DAILY lisinopril 30 mg PO DAILY 90 days semaglutide (weight loss) (Wegovy) 0.25 mg (0.5 mL) subcut QWEEK Tobacco use date assessed: 03/19/24 Dental Screening Dental Screen Date: 03/19/24 HPI 3M F/U HPI Details Chief Complaint Follow-up for medication management. Assessment and Plan 58-year-old female with a history of obesity, major depressive disorder, anxiety disorder, obstructive-compulsive disorder, atrial fibrillation, and prediabetes presenting for a medication follow-up. The patient reports issues with insurance denial for medication coverage, particularly for injections related to obesity management. Current management includes Lexapro at 20 mg for depression management, with the patient reporting stable efficacy, though expressing ongoing depressive symptoms. Additionally, anxiety and OCD-related behaviors were discussed, with ongoing depressive and anxiety symptoms requiring monitoring. Cardiac status updated with no significant change noted in recent echocardiogram and atrial fibrillation management with Eliquis. The patient is pre-diabetic, and recent labs indicate no progression to diabetes. Ongoing weight management and monitoring of her medical conditions are prescribed, with attention to prior authorization processes for medication. 1. Atrial Fibrillation Atrial fibrillation is managed with Eliquis. The latest echocardiogram indicates stability with no new findings. Continued monitoring and anticoagulation therapy are planned. 2. Obsessive-Compulsive Disorder The patient presents with repetitive thought cycles. Continued management with current SSRI is recommended. Patient is not considering therapy at this time. 3. Anxiety Disorder Patient experiences persistent anxiety, exacerbated by OCD behaviors and situational stressors. She declined therapy due to past negative experiences. Counseling on the potential increase of anxiety as a medication side effect was provided. 4. Major Depressive Disorder Depression managed with Lexapro 20 mg, which is noted to control symptoms fairly well. The patient declines an increase in dosage or additional therapy. Discussed the patient's lack of motivation and social withdrawal. Continued monitoring of the depressive symptoms is planned. 5. Prediabetes The condition remains stable, with no progression to diabetes. The patient is advised to continue with dietary modifications and exercise. Routine annual labs will monitor glycemic levels, and pancreas and thyroid evaluation to be conducted when starting obesity medication. 6. Obesity The patient is pursuing a prescribed injection pending insurance approval. Meanwhile, she is actively participating in Weight Watchers and incorporating diet and exercise modifications. Discussed potential side effects of the anticipated medication, including nausea, depression, pancreatic, and thyroid implications. Plan to conduct pancreas and thyroid tests before initiating this medication if approved. Problem List - Obesity - Major Depressive Disorder - Anxiety Disorder - Obsessive-Compulsive Disorder - Atrial Fibrillation - Prediabetes Patient Instructions - Await insurance approval for obesity medication and initiate pending lab tests for pancreas and thyroid function. - Continue with Weight Watchers and combine with regular exercise. - Adhere to Lexapro 20 mg dosage as currently prescribed. - Undertake blood tests at the next visit to monitor prediabetes status. - Follow up as planned for regular assessments and monitoring. - Maintain current anticoagulation therapy and monitor cardiovascular status. - Contact our office if there are changes in symptoms or medication issues. [facility] Medical History Impaired fasting blood sugar Encounter for general adult medical examination with abnormal findings Itching of ear Hospital discharge follow-up Biliary colic Cholelithiasis RUQ abdominal pain Obesity due to excess calories Change in bowel function Rectal bleed Encounter for routine gynecological examination Ex-smoker Shortness of breath Premature atrial contraction Obesity Fear of flying History of renal calculi Migraine headache Anxiety, generalized Surgical History Hx laparoscopic cholecystectomy (01/13/23) Hx of colonoscopy History of ureter stent History of cystoscopy History of appendectomy History of tonsillectomy History of section History of knee surgery History of lithotripsy History of oophorectomy Family History Father Unknown family medical history Mother COPD (chronic obstructive pulmonary disease) HTN (hypertension) CVD (cardiovascular disease) Son No problems noted. Daughter No problems noted. 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 Cognitive needs: No Hearing needs: No Vision needs: Yes Questionnaire Thrive Questionnaire Date Thrive assessed: 03/19/24 I am a: Patient What is your living situation today?: I have a steady place to live Within the past 12 months, did the food you bought not last and you didn't have the money to get more?: Never true Within the past 12 months, did you worry whether your food would run out before you got money to buy more?: Never true Do you have trouble paying for medicines?: No Do you have trouble getting transportation to medical appointments?: No Do you have trouble paying your heating and electricity bill?: No Do you have trouble taking care of your child, family member or friend?: No Do you have trouble with day-to-day activities such as bathing, preparing meals, shopping, managing finances, etc.?: No Are you currently unemployed and looking for a job?: No Are you interested in more education?: No Please select the resources that you would like help with: None Currently or been in a relationship where the following occur: No concerns reported THRIVE Score: 0 ADRIANNA-7 AMB Questionnaire ADRIANNA-7 Date ADRIANNA - 7 assessed: 03/19/24 Source: Developed by Drs. Frederick Benton, Vaishnavi Cadena, Reza Mandel and colleagues, with an educational low from [employer]. Review of Systems Const Denies chills and Denies fever(s) ENT Denies epistaxis and Denies nasal discharge Card Denies chest pain Resp Denies chest congestion, Denies cough and Denies hemoptysis GI Denies diarrhea and Denies nausea Skin/Breast Denies rash Neuro Reports no additional complaints Psych Reports no additional complaints Endo Reports no additional complaints Physical exam (Primary Care) Vital Signs: Last Vital Signs Pulse 63 07/02/24 12:11 BP 124/68 07/02/24 12:11 Pulse Ox 98 07/02/24 12:11 Oxygen Delivery Method Room Air 07/02/24 12:11 BMI result Body Mass Index 39.0 Tobacco/Smoking Status: Tobacco use Status Tobacco use date assessed 03/19/24 07/02/24 12:11 Patient Tobacco Use Status Never used Tobacco 07/02/24 12:11 Tobacco use type Cigarette 07/02/24 12:11 e-Cigarette/Vaping Use Never Used 07/02/24 12:11 Thrive Assessment: Date of Thrive Assessment Date Thrive assessed 03/19/24 07/02/24 12:11 Currently or been in a relationship where the following occur: No concerns reported Const General: cooperative, comfortable and no acute distress Orientation/consciousness: patient oriented x3 HENMT Head: Yes normocephalic Eyes General: appearance normal, both eyes and all related structures Neck Neck: Yes supple Resp Effort & Inspection: normal respiratory effort, no cough and no stridor Cardio Rhythm: regular rhythm Heart sounds: S1 normal heart sound present and S2 normal heart sound present Skin General skin exam: turgor normal Neuro General: patient oriented x3, tone normal and moves all extremities Extrem Right lower extremity: no edema Left lower extremity: no edema Coding Level of Care Code Est Pt Level 4 (81856) Diagnoses Essential hypertension I10 Anxiety, generalized F41.1 Migraine without status migrainosus, not intractable, unspecified migraine type G43.909 Migraine type: unspecified Status migrainosus presence: without status migrainosus Intractability: not intractable Class 2 severe obesity due to excess calories with serious comorbidity and body mass index (BMI) of 38.0 to 38.9 in adult E66.01; Z68.38 Body mass index: BMI 38.0-38.9 Obesity classification: adult class 2 (BMI 35 - 39.9) Obesity type: due to excess calories Serious obesity comorbidity presence: with serious comorbidity Recurrent major depressive disorder, in full remission F33.42 Active/Remission status: in full remission PAF (paroxysmal atrial fibrillation) I48.0 Impaired fasting blood sugar R73.01 Assessment & Plan Assessment & Plan (1) Essential hypertension: Code(s): I10 - Essential (primary) hypertension Category: Medical (2) Anxiety, generalized: Code(s): F41.1 - Generalized anxiety disorder Category: Medical (3) Migraine headache: Code(s): G43.909 - Migraine, unspecified, not intractable, without status migrainosus Category: Medical Qualifiers: Migraine type: unspecified Status migrainosus presence: without status migrainosus Intractability: not intractable Qualified Code(s): G43.909 - Migraine, unspecified, not intractable, without status migrainosus (4) Obesity: Code(s): E66.9 - Obesity, unspecified Category: Medical Qualifiers: Body mass index: BMI 38.0-38.9 Obesity classification: adult class 2 (BMI 35 - 39.9) Obesity type: due to excess calories Serious obesity comorbidity presence: with serious comorbidity Qualified Code(s): E66.01 - Morbid (severe) obesity due to excess calories; Z68.38 - Body mass index [BMI] 38.0-38.9, adult (5) Major depression, recurrent: Code(s): F33.9 - Major depressive disorder, recurrent, unspecified Category: Medical Qualifiers: Active/Remission status: in full remission Qualified Code(s): F33.42 - Major depressive disorder, recurrent, in full remission (6) PAF (paroxysmal atrial fibrillation): Code(s): I48.0 - Paroxysmal atrial fibrillation Category: Medical (7) Impaired fasting blood sugar: Code(s): R73.01 - Impaired fasting glucose Category: Medical Plan Chief Complaint Follow-up for medication management. Assessment and Plan 58-year-old female with a history of obesity, major depressive disorder, anxiety disorder, obstructive-compulsive disorder, atrial fibrillation, and prediabetes presenting for a medication follow-up. The patient reports issues with insurance denial for medication coverage, particularly for injections related to obesity management. Current management includes Lexapro at 20 mg for depression management, with the patient reporting stable efficacy, though expressing ongoing depressive symptoms. Additionally, anxiety and OCD-related behaviors were discussed, with ongoing depressive and anxiety symptoms requiring monitoring. Cardiac status updated with no significant change noted in recent echocardiogram and atrial fibrillation management with Eliquis. The patient is pre-diabetic, and recent labs indicate no progression to diabetes. Ongoing weight management and monitoring of her medical conditions are prescribed, with attention to prior authorization processes for medication. 1. Atrial Fibrillation Atrial fibrillation is managed with Eliquis. The latest echocardiogram indicates stability with no new findings. Continued monitoring and anticoagulation therapy are planned. 2. Obsessive-Compulsive Disorder The patient presents with repetitive thought cycles. Continued management with current SSRI is recommended. Patient is not considering therapy at this time. 3. Anxiety Disorder Patient experiences persistent anxiety, exacerbated by OCD behaviors and situational stressors. She declined therapy due to past negative experiences. Counseling on the potential increase of anxiety as a medication side effect was provided. 4. Major Depressive Disorder Depression managed with Lexapro 20 mg, which is noted to control symptoms fairly well. The patient declines an increase in dosage or additional therapy. Discussed the patient's lack of motivation and social withdrawal. Continued monitoring of the depressive symptoms is planned. 5. Prediabetes The condition remains stable, with no progression to diabetes. The patient is advised to continue with dietary modifications and exercise. Routine annual labs will monitor glycemic levels, and pancreas and thyroid evaluation to be conducted when starting obesity medication. 6. Obesity The patient is pursuing a prescribed injection pending insurance approval. Meanwhile, she is actively participating in Weight Watchers and incorporating diet and exercise modifications. Discussed potential side effects of the anticipated medication, including nausea, depression, pancreatic, and thyroid implications. Plan to conduct pancreas and thyroid tests before initiating this medication if approved. Problem List - Obesity - Major Depressive Disorder - Anxiety Disorder - Obsessive-Compulsive Disorder - Atrial Fibrillation - Prediabetes Patient Instructions - Await insurance approval for obesity medication and initiate pending lab tests for pancreas and thyroid function. - Continue with Weight Watchers and combine with regular exercise. - Adhere to Lexapro 20 mg dosage as currently prescribed. - Undertake blood tests at the next visit to monitor prediabetes status. - Follow up as planned for regular assessments and monitoring. - Maintain current anticoagulation therapy and monitor cardiovascular status. - Contact our office if there are changes in symptoms or medication issues. Orders: Orders Amylase Today E66.01 - Morbid (severe) obesity due to excess calories, F33.42 - Major depressive disorder, recurrent, in full remission, F41.1 - Generalized anxiety disorder, G43.909 - Migraine, unspecified, not intractable, without status migrainosus, I10 - Essential (primary) hypertension, I48.0 - Paroxysmal atrial fibrillation, R73.01 - Impaired fasting glucose, Z68.38 - Body mass index [BMI] 38.0-38.9, adult Hemoglobin A1c Today E66.01 - Morbid (severe) obesity due to excess calories, F33.42 - Major depressive disorder, recurrent, in full remission, F41.1 - Generalized anxiety disorder, G43.909 - Migraine, unspecified, not intractable, without status migrainosus, I10 - Essential (primary) hypertension, I48.0 - Paroxysmal atrial fibrillation, R73.01 - Impaired fasting glucose, Z68.38 - Body mass index [BMI] 38.0-38.9, adult Complete Blood Count Auto Diff Today E66.01 - Morbid (severe) obesity due to excess calories, F33.42 - Major depressive disorder, recurrent, in full remission, F41.1 - Generalized anxiety disorder, G43.909 - Migraine, unspecified, not intractable, without status migrainosus, I10 - Essential (primary) hypertension, I48.0 - Paroxysmal atrial fibrillation, R73.01 - Impaired fasting glucose, Z68.38 - Body mass index [BMI] 38.0-38.9, adult Comprehensive Met. Panel Today E66.01 - Morbid (severe) obesity due to excess calories, F33.42 - Major depressive disorder, recurrent, in full remission, F41.1 - Generalized anxiety disorder, G43.909 - Migraine, unspecified, not intractable, without status migrainosus, I10 - Essential (primary) hypertension, I48.0 - Paroxysmal atrial fibrillation, R73.01 - Impaired fasting glucose, Z68.38 - Body mass index [BMI] 38.0-38.9, adult Lipase Today E66.01 - Morbid (severe) obesity due to excess calories, F33.42 - Major depressive disorder, recurrent, in full remission, F41.1 - Generalized anxiety disorder, G43.909 - Migraine, unspecified, not intractable, without status migrainosus, I10 - Essential (primary) hypertension, I48.0 - Paroxysmal atrial fibrillation, R73.01 - Impaired fasting glucose, Z68.38 - Body mass index [BMI] 38.0-38.9, adult TSH reflex Free T4 Today E66.01 - Morbid (severe) obesity due to excess calories, F33.42 - Major depressive disorder, recurrent, in full remission, F41.1 - Generalized anxiety disorder, G43.909 - Migraine, unspecified, not intractable, without status migrainosus, I10 - Essential (primary) hypertension, I48.0 - Paroxysmal atrial fibrillation, R73.01 - Impaired fasting glucose, Z68.38 - Body mass index [BMI] 38.0-38.9, adult Medications: Refilled semaglutide (weight loss) ([place]) administer weeks 1 through 4 of therapy 0.25 mg (0.5 mL) subcut QWEEK 2 mL 0RF E66.01 - Morbid (severe) obesity due to excess calories, I48.0 - Paroxysmal atrial fibrillation, R73.01 - Impaired fasting glucose, Z68.38 - Body mass index [BMI] 38.0-38.9, adult
[2024-07-02 12:11] VITALS: BP 124/68; PULSE 63; O2SAT 98; BMI 39.0
== END 2024-07-02 13:47 | disposition home or self-care (01) ==
PROVIDERS: PCP Internal Medicine; Visit Provider Internal Medicine
DX: I48.0 Paroxysmal atrial fibrillation (principal); F33.42 Major depressive disorder, recurrent, in full remission; E66.01 Morbid (severe) obesity due to excess calories; Z68.38 Body mass index [BMI] 38.0-38.9, adult; I10 Essential (primary) hypertension; F41.1 Generalized anxiety disorder; G43.909 Migraine, unspecified, not intractable, without status migrainosus; R73.01 Impaired fasting glucose

== ENCOUNTER 2024-08-02 15:13 | Outpatient (AMB) | payer OTHER, SELFPAY ==
[2024-08-02 15:20] VITALS: BP 110/78; PULSE 80; O2SAT 98
--- NOTE | 2024-08-02 15:20 | MHC.OFFWIV ---
Intake Vital Signs 08/02/24 15:20 Weight 214 lb BP 110/78 Blood Pressure Location Lt brachial Position Sitting Pulse 80 Pulse Source Pulse Oximeter Pulse Oximetry (%) 98 Oxygen Delivery Method Room Air Intake Visit Reasons: EP-lt side tooth ache Intake Note: Patient here for tooth ache that has been present for about 2-3 months and worsened last night. Patient Tobacco Use Status: Never used Tobacco Allergies clavulanic acid [From AUGMENTIN] Adverse Reaction (Mild, Verified 08/02/24 15:22) Irritable Do you need a note to return to daycare/school/sports/work: No HPI EP-lt side tooth ache HPI Details This note is constructed using voice recognition software. While every effort has been made to ensure accuracy, welt sole layer errors may have been included. The patient is a 58 year old female who presents to the clinic today with left-sided tooth pain. She notes she has had pain for the past several months, and does have an appointment with an oral surgeon for September to help resolve this, however the pain got suddenly worse overnight. She is currently on Eliquis, but has taken ibuprofen to help the pain as well as Tylenol. The pain is subsiding some with that combination. She denies fever, but does report chills periods she denies any issues with swallowing. [facility] Medical History Impaired fasting blood sugar Encounter for general adult medical examination with abnormal findings Itching of ear Hospital discharge follow-up Biliary colic Cholelithiasis RUQ abdominal pain Obesity due to excess calories Change in bowel function Rectal bleed Encounter for routine gynecological examination Ex-smoker Shortness of breath Premature atrial contraction Obesity Fear of flying History of renal calculi Migraine headache Anxiety, generalized Surgical History Hx laparoscopic cholecystectomy (01/13/23) Hx of colonoscopy History of ureter stent History of cystoscopy History of appendectomy History of tonsillectomy History of section History of knee surgery History of lithotripsy History of oophorectomy Family History Father Unknown family medical history Mother COPD (chronic obstructive pulmonary disease) HTN (hypertension) CVD (cardiovascular disease) Son No problems noted. Daughter No problems noted. 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 Cognitive needs: No Hearing needs: No Vision needs: Yes Review of Systems Const All systems reviewed & are unremarkable except as noted in HPI and below Physical Exam Vital Signs: Last Vital Signs Pulse 80 08/02/24 15:20 BP 110/78 08/02/24 15:20 Pulse Ox 98 08/02/24 15:20 Oxygen Delivery Method Room Air 08/02/24 15:20 Const General: cooperative, healthy appearing, comfortable, no acute distress and well developed Orientation/consciousness: patient oriented x3 Limitations: no limitations HEENT Head: Yes normal to inspection Ears: hearing grossly normal bilaterally General nose exam: Normal external nose present Face and sinus: Yes normal facial exam Teeth and gingiva: gingiva abnormal (Dental caries present, left lower internal gumline erythematous) discolored Eyes General: appearance normal, both eyes and all related structures Neck Neck: Yes normal visual inspection and Yes full ROM Resp Effort & Inspection: normal respiratory effort and able to speak in complete sentences Auscultation: clear to auscultation bilaterally Cardio Rate: regular rate Rhythm: regular rhythm Heart sounds: normal S1 and S2 Skin General skin exam: no rashes or lesions noted Neuro General: patient oriented x3 Assessment & Plan Assessment & Plan (1) Dental infection: Code(s): K04.7 - Periapical abscess without sinus Plan: Antibiotics sent to requested pharmacy. Advised patient to follow up with dental surgeon as previously planned and call for cancellation list. Advised follow up as needed with worsening or failure to resolve. Plan See above for full details and plan. Medications: New metronidazole 500 mg PO Q8H 7 days 21 tabs 0RF cefuroxime axetil 500 mg PO BID 10 days 20 tabs 0RF Coding Level of Care Code Est Pt Level 3 (91930) Diagnoses Dental infection K04.7
== END 2024-08-02 15:49 | disposition home or self-care (01) ==
PROVIDERS: PCP Internal Medicine; Visit Provider Registered Nurse
DX: K04.7 Periapical abscess without sinus (principal)

== ENCOUNTER 2024-10-05 08:08 | Outpatient (AMB) | payer OTHER, SELFPAY ==
[2024-10-05 08:46] VITALS: BP 104/70; PULSE 72; RESP 20; TEMP 37; O2SAT 95; BMI 37.9
--- NOTE | 2024-10-05 08:46 | AM.OFFWIN_ITS ---
Intake Vital Signs 10/05/24 08:46 Height 5 ft 3 in Weight 214 lb BMI 37.9 BP 104/70 Blood Pressure Location Lt brachial Position Sitting Respiration 20 Pulse 72 Pulse Source Pulse Oximeter Temp 98.6 F Temp Source Oral Pulse Oximetry (%) 95 Oxygen Delivery Method Room Air Intake Visit Reasons: EP Cold symptoms, weakness Intake Note: Pt is here today for a walk in visit. Pt states that she was on antibiotics and she developed yeast infection which she was treated for. Pt states that 3 days went by and her symptoms did not go away. Pt states that Friday she started with chills, fever, body aches. Pt states that she is feeling very weak. Patient Tobacco Use Status: Never used Tobacco Allergies clavulanic acid [From AUGMENTIN] Adverse Reaction (Mild, Verified 10/05/24 09:06) Irritable Do you need a note to return to daycare/school/sports/work: Yes HPI HPI Comments History of Present Illness Details History - The patient is a 58-year-old female pr esenting with symptoms consistent with influenza and recurrent vaginal candidiasis. - The presentation commenced following d ental issues, including a tooth abscess, necessitating antibiotics, leading to a yeast infection. - Initial treatment included over-the-co unter antifungals, which failed to provide lasting relief until oral fluconazole was administered. - Despite initial improvement, yeast inf ection symptoms resurged, described as vaginal cottage cheese discharge and clear mucous discharge per rectum, unalleviated by two doses of fluconazole. - Influenza-like symptoms were noted pos t-antifungal treatment that started 3 days ago with severe fatigue, chills, and fever reported. - The patient experienced an episode of atrial fibrillation with symptoms exacerbated by activities like showering. Afib has self resovled, pt taking her carvedilol daily but may have missed a dose. - Negative COVID-19 results at home Physical Exam General: Cooperative, healthy appearing, comfortable and no acute distress Orientation/consciousness: Patient oriented x3 Limitations: No limitations Head: Normal to inspection Ears: Hearing grossly normal bilaterally, external ears normal and TM's normal bilaterally Nose: Normal external nose present, Normal nares present and No nasal discharge present Face and sinus: Normal facial exam and Yes sinuses nontender Mouth: Normal oral and palatal mucosa present and moist mucous membranes Throat: Yes tonsils normal, Yes uvula midline. Posterior oropharynx erythema Eyes: Appearance normal, both eyes and all related structures Neck: Normal visual inspection Respiratory: Clear to auscultation bilaterally. Normal respiratory effort, able to speak in complete sentences, Actively coughing, no respiratory distress, not tachypneic, no tripod positioning and no use of accessory muscles Cardiovascular: Regular rate and rhythm. Normal S1 and S2 Skin: No rashes or lesions noted, eczema present Neuro: Patient oriented x3 Extremities: Normal to inspection and Yes no clubbing, cyanosis or edema PFSH Medical History Impaired fasting blood sugar Encounter for general adult medical examination with abnormal findings Itching of ear Hospital discharge follow-up Biliary colic Cholelithiasis RUQ abdominal pain Obesity due to excess calories Change in bowel function Rectal bleed Encounter for routine gynecological examination Ex-smoker Shortness of breath Premature atrial contraction Obesity Fear of flying History of renal calculi Migraine headache Anxiety, generalized Surgical History Hx laparoscopic cholecystectomy (01/13/23) Hx of colonoscopy History of ureter stent History of cystoscopy History of appendectomy History of tonsillectomy History of section History of knee surgery History of lithotripsy History of oophorectomy Family History Father Unknown family medical history Mother COPD (chronic obstructive pulmonary disease) HTN (hypertension) CVD (cardiovascular disease) Son No problems noted. Daughter No problems noted. 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 Cognitive needs: No Hearing needs: No Vision needs: Yes Review of Systems Const All systems reviewed & are unremarkable except as noted in HPI and below Physical Exam Vital Signs: Last Vital Signs Temp 98.6 F 10/05/24 08:46 Pulse 72 10/05/24 08:46 Resp 20 10/05/24 08:46 BP 104/70 10/05/24 08:46 Pulse Ox 95 10/05/24 08:46 Oxygen Delivery Method Room Air 10/05/24 08:46 BMI result Body Mass Index 37.9 Assessment & Plan Assessment & Plan (1) Yeast infection: Code(s): B37.9 - Candidiasis, unspecified Plan: For the management of recurrent vaginal candidiasis, I recommended a third dose of fluconazole. Patient was informed and verbally consented to the use of an ambient scribe for clinic note documentation during this visit (2) Acute viral syndrome: Code(s): B34.9 - Viral infection, unspecified Plan: VSS, pt well appearing and PE unremarkable. The patient's symptoms align with influenza, and while Tamiflu is available, the patient opted to manage symptoms with rest and increased fluid intake to avoid the side effects of Tamiflu. Advice was given to monitor for respiratory symptoms to prevent pneumonia. Current atrial fibrillation symptoms are resolved; further episodes should prompt evaluation. The patient was advised to monitor for systemic infection symptoms and ensure safety during episodes of weakness, notably avoiding prolonged hot showers. Orders: Orders SARS-CoV2/FLU/RSV Today R09.89 - Other specified symptoms and signs involving the circulatory and respiratory systems Medications: New fluconazole may repeat second dose 72 hrs after first dose if symptoms persist 150 mg PO Q3D 2 tabs 0RF Coding Level of Care Code Est Pt Level 4 (51238) Diagnoses Yeast infection B37.9 Acute viral syndrome B34.9
== END 2024-10-05 09:22 | disposition home or self-care (01) ==
PROVIDERS: PCP Internal Medicine; Visit Provider Physician Assistant
DX: B37.9 Candidiasis, unspecified (principal); B34.9 Viral infection, unspecified

== ENCOUNTER 2024-10-05 08:08 | Outpatient (REF) | payer OTHER, SELFPAY ==
[2024-10-05 12:59] LABS: Influenza A PCR POSITIVE (Negative); Influenza B PCR NEGATIVE (Negative); Resp Syncy Virus RNA Qual PCR NEGATIVE (Negative); SARS COV2 PCR INHOUSE NEGATIVE (Negative)
== END 2024-10-05 08:09 | disposition home or self-care (01) ==
LOC: HO.LAB 08:08
PROVIDERS: PCP Internal Medicine; Visit Provider Physician Assistant
DX: R09.89 Other specified symptoms and signs involving the circulatory and respiratory systems (principal); B37.9 Candidiasis, unspecified; B34.9 Viral infection, unspecified; R50.9 Fever, unspecified
CPT/HCPCS: 0241U

== ENCOUNTER 2024-10-29 11:21 | Outpatient (REF) | payer OTHER, SELFPAY | END 2024-10-29 11:22 | disposition home or self-care (01) | LOC: HO.LAB 11:21 | PROVIDERS: PCP Internal Medicine; Visit Provider Physician Assistant | DX: N30.01 Acute cystitis with hematuria (principal) | CPT/HCPCS: 81003 ==

== ENCOUNTER 2024-10-29 11:21 | Outpatient (AMB) | payer OTHER, SELFPAY ==
--- NOTE | 2024-10-29 11:22 | AM.OFFWIN_ITS ---
Intake Vital Signs 10/29/24 11:32 Weight 213 lb BP 122/80 Blood Pressure Location Lt brachial Position Sitting Pulse 72 Pulse Source Pulse Oximeter Pulse Oximetry (%) 98 Oxygen Delivery Method Room Air Intake Visit Reasons: EP-uti Intake Note: Patient here for frequent urination, urgency that has been present for about 3 days. Patient Tobacco Use Status: Never used Tobacco Allergies clavulanic acid [From AUGMENTIN] Adverse Reaction (Mild, Verified 10/29/24 11:31) Irritable Do you need a note to return to daycare/school/sports/work: No HPI HPI Comments History of Present Illness Details History of Present Illness - The patient is a 58-year-old female pr esenting with frequent urination, pain with urination and blood in her urine x 3 days. - She reports a sensation of needing to urinate frequently with small amounts passed each time, alongside waking multiple times at night to urinate. - Blood is noted upon wiping, and the ur ine appears cloudy and malodorous. - pain manifests as mild discomfort and burning during urination. - She has a history of nephrolithiasis, with no current significant flank or back pain, and denies recent fever. - Home urine collection revealed sedimen t but no stone debris, and an ultrasound is scheduled for next week for further evaluation. - She avoids penicillin-based antibiotic s due to resistant yeast infections and uses cefuroxime effectively for UTI treatment. Physical Exam General: Cooperative, healthy appearing, comfortable, no acute distress and well developed Orientation: Patient oriented x3 Limitations: No limitations Head: Normal to inspection Ears: Hearing grossly normal bilaterally Nose: Normal External nose present Face and sinus: Normal facial exam Eyes: Appearance normal, both eyes and all related structures Neck: Normal visual inspection and Yes full ROM Respiratory: Normal respiratory effort and able to speak in complete sentences. : negative CVA bilaterally Skin: No rashes or lesions noted Neuro: Patient oriented x3 Extremities: Normal to inspection [facility] Medical History Impaired fasting blood sugar Encounter for general adult medical examination with abnormal findings Itching of ear Hospital discharge follow-up Biliary colic Cholelithiasis RUQ abdominal pain Obesity due to excess calories Change in bowel function Rectal bleed Encounter for routine gynecological examination Ex-smoker Shortness of breath Premature atrial contraction Obesity Fear of flying History of renal calculi Migraine headache Anxiety, generalized Surgical History Hx laparoscopic cholecystectomy (01/13/23) Hx of colonoscopy History of ureter stent History of cystoscopy History of appendectomy History of tonsillectomy History of section History of knee surgery History of lithotripsy History of oophorectomy Family History Father Unknown family medical history Mother COPD (chronic obstructive pulmonary disease) HTN (hypertension) CVD (cardiovascular disease) Son No problems noted. Daughter No problems noted. 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 Cognitive needs: No Hearing needs: No Vision needs: Yes Review of Systems Const All systems reviewed & are unremarkable except as noted in HPI and below Physical Exam Vital Signs: Last Vital Signs Pulse 72 10/29/24 11:32 BP 122/80 10/29/24 11:32 Pulse Ox 98 10/29/24 11:32 Oxygen Delivery Method Room Air 10/29/24 11:32 Assessment & Plan Assessment & Plan (1) Urinary tract infection: Code(s): N39.0 - Urinary tract infection, site not specified Qualifiers: Urinary tract infection type: acute cystitis Hematuria presence: with hematuria Qualified Code(s): N30.01 - Acute cystitis with hematuria Plan: I will manage the urinary tract infection with cefuroxime, noting the patient's sensitivity to penicillin-based antibiotics and previous positive response to this medication. The patient is advised to report any adverse reactions to cefuroxime. Follow-up will depend on her response and ultrasound findings. Sent diflucan as she is prone to yeast infections when taking antibiotics. Patient was informed and verbally consented to the use of an ambient scribe for clinic note documentation during this visit. Orders: Orders Urine Culture Today N39.0 - Urinary tract infection, site not specified Medications: New fluconazole may repeat second dose 72 hrs after first dose if symptoms persist 150 mg PO Q3D 2 tabs 0RF cefuroxime axetil 500 mg PO Q12H 10 tabs 0RF Coding Level of Care Code Est Pt Level 3 (98008) Diagnoses Acute cystitis with hematuria N30.01 Urinary tract infection type: acute cystitis Hematuria presence: with hematuria
[2024-10-29 11:32] VITALS: BP 122/80; PULSE 72; O2SAT 98
== END 2024-10-29 11:48 | disposition home or self-care (01) ==
PROVIDERS: PCP Internal Medicine; Visit Provider Physician Assistant
DX: N30.01 Acute cystitis with hematuria (principal); Z13.9 Encounter for screening, unspecified

== ENCOUNTER 2024-11-25 09:39 | Outpatient (REF) | payer OTHER, SELFPAY ==
--- OUTSIDE RECORDS SUMMARY | 2024-11-25 11:03 | XMS_ITS | Clinical Summary ---
Author Organization [address] [facility] Address [address] [place] [address] Phone Care Team Providers Care Grievance And Appeals Coordinator Name Role Phone Maria Isabel Avendano MD Primary Care Provider [phone] Encounters Date Type Department Care Team Description 11/19/2024 Lab Requisition [facility] - Main Lab [address] [facility] [place] [address] Maryann Awad MD Other abnormal findings in urine from Last 3 Months Social History Tobacco Use Types Packs/Day Years Used Date Smoking Tobacco: Never Assessed Comments Unknown Sex and Gender Information Value Date Recorded Sex Assigned at Not on file Legal Sex Female 8:36 PM EST Gender Identity Not on file Sexual Orientation Not on file Plan of Treatment Health Maintenance Due Date Last Done Comments Breast Cancer Screening 1965 DTaP,Tdap,and Td Vaccines (1 - Tdap) 12/07/1983 Hepatitis B Vaccines (1 of 3 - 19+ 3-dose series) 12/07/1983 Cervical Cancer Screening: P ap Smear 1985 Pneumococcal Vaccine: 50+ Ye ars (1 of 1 - PCV) 2014 Zoster Vaccines (1 of 2) 2014 Colorectal Cancer Screening: Colonoscopy 09/05/2023 Depression Screening 09/05/2023 HIV Screening 09/05/2023 Hepatitis C Screening 09/05/2023 Social Influencers of Health Screening 09/05/2023 COVID-19 Vaccine ( - 2023-2 5 season) 2024 Influenza Vaccine (Season Ended) 2025 RSV Immunization Adult Patie nts (1 - 1-dose 75+ series) 12/07/2039 HIB Vaccines Aged Out No longer eligi ble based on patient's age to complete this topic HPV Vaccines Aged Out No longer eligi ble based on patient's age to complete this topic Hepatitis A Vaccines Aged Out No long er eligible based on patient's age to complete this topic IPV Vaccines Aged Out No longer eligi ble based on patient's age to complete this topic MMR Vaccines Aged Out No longer eligi ble based on patient's age to complete this topic Meningococcal ACWY Vaccine Aged Out N o longer eligible based on patient's age to complete this topic Meningococcal B Vaccine Aged Out No l onger eligible based on patient's age to complete this topic Pneumococcal Vaccine: Pediat rics (0 to 5 Years) and At-Risk Patients (6 to 64 Years) Aged Out No longer eligible b ased on patient's age to complete this topic RSV Immunization Patients Un magdalena 20 months Aged Out No longer eligible b ased on patient's age to complete this topic Varicella Vaccines Aged Out No longer eligible based on patient's age to complete this topic Procedures Procedure Name Priority Date/Time Associated Diagnosis Comments CULTURE URINE Routine 11/19/2024 1:33 PM EDT Other abnormal findings in urine from Last 3 Months Results * (ABNORMAL) Culture urine (11/19/2024 1:33 PM EDT) Culture, Urine >100,000 CFU/mL Klebsiella pneumoniae ssp pneumoniae(A) JUDY 11/21/2024 10:02 AM EDT [facility] Comment: This is an edited result. Previous organism was Gram negative bacilli on 11/20/2024 at 1012 EDT. Urine Urine specimen obtained by clean catch procedure / Unknown 11/19/2024 1:33 PM EDT 11/19/2024 6:26 PM EDT Narrative Organism Antibiotic Method Susceptibility Klebsiella pneumoniae ssp pneumoniae Amoxicillin/Clavulanate JUDY <=2 ug/ml: Susceptible Klebsiella pneumoniae ssp pneumoniae Ampicillin/Sulbactam JUDY 4 ug/ml: Susceptible Klebsiella pneumoniae ssp pneumoniae Piperacillin/Tazobactam JUDY <=4 ug/ml: Susceptible Klebsiella pneumoniae ssp pneumoniae Cefazolin (Urine) JUDY 2 ug/ml: Susceptible Klebsiella pneumoniae ssp pneumoniae Cefoxitin JUDY <=4 ug/ml: Susceptible Klebsiella pneumoniae ssp pneumoniae Ceftazidime JUDY <=0.5 ug/ml: Susceptible Klebsiella pneumoniae ssp pneumoniae Ceftriaxone JUDY <=0.25 ug/ml: Susceptible Klebsiella pneumoniae ssp pneumoniae Cefepime JUDY <=0.12 ug/ml: Susceptible Klebsiella pneumoniae ssp pneumoniae Meropenem JUDY <=0.25 ug/ml: Susceptible Klebsiella pneumoniae ssp pneumoniae Amikacin JUDY <=1 ug/ml: Susceptible Klebsiella pneumoniae ssp pneumoniae Gentamicin JUDY <=1 ug/ml: Susceptible Klebsiella pneumoniae ssp pneumoniae Ciprofloxacin JUDY <=0.06 ug/ml: Susceptible Klebsiella pneumoniae ssp pneumoniae Levofloxacin JUDY <=0.12 ug/ml: Susceptible Klebsiella pneumoniae ssp pneumoniae Nitrofurantoin JUDY 64 ug/ml: Intermediate Klebsiella pneumoniae ssp pneumoniae Trimethoprim/Sulfamethoxazo le JUDY <=20 ug/ml: Susceptible us Maryann Awad MD LAB MICROBIOLOGY - GENER AL ORDERABLES Final Result [facility] ([facility]) [facility] [address] [place] [address], from Last 3 Months Insurance [facility] Care Teams Grievance And Appeals Coordinator Relationship Specialty Start Date End Date Maria Isabel Avendano MD [address] [place] [phone] PCP - General Internal Medicine 11/20/24
--- OUTSIDE RECORDS SUMMARY | 2024-11-25 11:03 | XMS_ITS | Encounter Summary ---
Author Organization [email or web address] Address [address] [place] [address] Care Team Providers Care Veterinary Practitioner Name Role Phone Maria Isabel Avendano MD Primary Care Provider [phone] Encounter Details Date Type Department Care Team (Late st Contact Info) Description 11/19/[address] [facility] - Main Lab [address] [facility], [facility] [place] [address] Maryann Awad MD [address] [address] Other abnormal findings in urine Social History Tobacco Use Types Packs/Day Years Used Date Smoking Tobacco: Never Assessed Comments Unknown Sex and Gender Information Value Date Recorded Sex Assigned at Not on file Legal Sex Female 8:36 PM EST Gender Identity Not on file Sexual Orientation Not on file documented as of this encounter Plan of Treatment Not on file documented as of this encounter Procedures Procedure Name Priority Date/Time Associated Diagnosis Comments CULTURE URINE Routine 11/19/2024 1:33 PM EDT Other abnormal findings in urine documented in this encounter Results * (ABNORMAL) Culture urine (11/19/2024 1:33 PM EDT) Culture, Urine >100,000 CFU/mL Klebsiella pneumoniae ssp pneumoniae(A) JUDY 11/21/2024 10:02 AM EDT [facility] ([facility]) [facility] Comment: This is an edited result. [...] MICROBIOLOGY - GENER AL ORDERABLES Final Result [facility] ([facility]) [facility] [address] [place] [address], documented in this encounter Visit Diagnoses Diagnosis Other abnormal findings in urine documented in this encounter Care Teams Veterinary Practitioner Relationship Specialty Start Date End Date Maria Isabel Avendano MD [address] [place] [address] PCP - General Internal Medicine 11/20/24 documented as of this encounter
[2024-11-25 13:14] LABS: MANUAL DIFF FLAG NO
[2024-11-25 13:29] LABS: Basophils Percent Auto 0.3 % (0-2); Eosinophils Absolute Auto 0.1 X10*3/uL (0.0-0.4); Eosinophils Percent Auto 1.4 % (0-4); Hematocrit 37.8 % (37.0-47.0); Hemoglobin 12.7 g/dl (12.0-16.0); Imm Gran Abs Auto 0.01 X10*3/uL (0.00-0.03); Imm Gran Pct Auto 0.1 % (0.0-0.4); Lymphocytes Absolute Auto 2.2 X10*3/uL (1.2-4.9); Lymphocytes Percent Auto 31.2 % (20-40); Mean Corpuscular HGB Conc 33.6 g/dl (31.0-35.0); Mean Corpuscular Hemoglobin 28.1 pg (27.0-33.0); Mean Corpuscular Volume 83.6 fL (80.0-98.0); Mean Platelet Volume 9.7 fL (9.4-12.3); Monocytes Absolute Auto 0.5 X10*3/uL (0.1-1.2); Monocytes Percent Auto 7.1 % (2-11); Neutrophils Absolute Auto 4.2 x10*3/uL (2.0-8.3); Neutrophils Percent Auto 59.9 % (45-73); Platelet Count 238 X10*3/uL (160-400); Red Blood Count 4.52 X10*6/uL (4.20-5.50); Red Cell Distribution Width 13.4 % (11.0-16.0); White Blood Count 7.1 X10*3/uL (4.8-10.8)
[2024-11-25 13:31] LABS: Estimated Average Glucose 111 mg/dL; Hemoglobin A1C 122.5343 umol/L; Hemoglobin A1c % 5.5 % (<6.0); Total Hemoglobin (HGBA1C) 3349.5417 umol/L
[2024-11-25 13:36] LABS: Alanine Aminotransferase 18 U/L (0-31); Albumin Level 3.8 g/dL (3.5-5.0); Anion Gap 12 (12-20); Aspartate Amino Transferase 17 U/L (5-31); Bilirubin Total 0.2 mg/dL (0.0-1.0); Blood Urea Nitrogen 18 mg/dL (9-16); Calcium 9.4 mg/dL (8.4-10.2); Carbon Dioxide 26 mmol/L (22-29); Chloride 109 mmol/L (96-108); Estimated Glomerular Filt Rate > 60; Glucose Random 118 mg/dL (60-115); Lipase 38 U/L (8-78); Potassium 4.2 mmol/L (3.3-5.1); Sodium 143 mmol/L (135-145); Total Protein 6.6 g/dL (6.5-8.0)
[2024-11-25 14:05] LABS: TSH reflex Free T4 0.96 uIU/mL (0.32-4.0)
[2024-11-25 14:10] LABS: Alkaline Phosphatase 76 U/L (39-117); Amylase 47 U/L (28-100)
== END 2024-11-25 09:40 | disposition home or self-care (01) ==
LOC: HO.HMGCLDS 09:39
PROVIDERS: PCP Internal Medicine; Visit Provider Internal Medicine
DX: I48.0 Paroxysmal atrial fibrillation (principal); I10 Essential (primary) hypertension; F41.1 Generalized anxiety disorder; G43.909 Migraine, unspecified, not intractable, without status migrainosus; Z68.38 Body mass index [BMI] 38.0-38.9, adult; E66.01 Morbid (severe) obesity due to excess calories; R73.01 Impaired fasting glucose; F33.42 Major depressive disorder, recurrent, in full remission
CPT/HCPCS: 36415; 80053; 82150; 83036; 83690; 84443; 85025; 93005

== ENCOUNTER 2024-11-25 13:17 | Outpatient (AMB) | payer OTHER, SELFPAY ==
[2024-11-25 13:21] VITALS: BP 120/72; PULSE 67; BMI 37.9
--- NOTE | 2024-11-25 13:21 | A.OFFVIS_ITS ---
Vital Signs 11/25/24 13:21 Height 5 ft 3 in Weight 213 lb 13.574 oz BMI 37.9 BP 120/72 Blood Pressure Location Rt brachial Position Sitting Pulse 67 Pulse Source Pulse Oximeter Intake Visit Reasons: 6m follow up Chiropractic Teacher Required: No Allergies clavulanic acid [From AUGMENTIN] Adverse Reaction (Mild, Verified 11/25/24 13:24) Irritable Medication List - Last Reconciled 11/25/[address] [employer] REPORTER-C albuterol sulfate 90 mcg/actuation 2 puffs PO Q4H PRN apixaban (Eliquis) 5 mg PO BID 90 days carvedilol 6.25 mg PO BID 90 days escitalopram oxalate 20 mg PO DAILY lisinopril 30 mg PO DAILY 90 days HPI HPI 6m follow up: Details: Melida is a 58-year-old female past medical history of hypertension,renal calculi with prior hematuria, paroxysmal atrial fibrillation, who presents for follow- up. Today she reports that she has been getting heart palpitations at least once a month lasting 4-5 hours. She has a smart watch and his recorded this to be atr ial fibrillation. She notices fatigue if the AFib and after the episode has resolved. She says that alcohol is a trigger for her. She does not drink routinely. Other times her episodes just occur randomly. No chest discomfort at rest or with activity. No presyncope, syncope, PND, orthopnea or edema. She has shortness of breath with exertional activities such as walking and stair climbing which is not new. Is trying to work on weight loss but has a sedentary job which makes it more challenging. 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 No bleeding issues reported. Takes her meds as directed [facility] Medical History Impaired fasting blood sugar Encounter for general adult medical examination with abnormal findings Itching of ear Hospital discharge follow-up Biliary colic Cholelithiasis RUQ abdominal pain Obesity due to excess calories Change in bowel function Rectal bleed Encounter for routine gynecological examination Ex-smoker Shortness of breath Premature atrial contraction Obesity Fear of flying History of renal calculi Migraine headache Anxiety, generalized Surgical History Hx laparoscopic cholecystectomy (01/13/23) Hx of colonoscopy History of ureter stent History of cystoscopy History of appendectomy History of tonsillectomy History of section History of knee surgery History of lithotripsy History of oophorectomy Family History Father Unknown family medical history Mother COPD (chronic obstructive pulmonary disease) HTN (hypertension) CVD (cardiovascular disease) Son No problems noted. Daughter No problems noted. 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 Cognitive needs: No Hearing needs: No Vision needs: Yes Review of Systems Const All systems reviewed & are unremarkable except as noted in HPI and below ENT Denies dizziness Card Details: palpitations Denies chest pain, Denies chest pain at rest, Denies chest pain with activity, Reports rapid heart rate, Denies pedal edema, Denies edema, Denies leg edema, Denies lightheadedness, Reports palpitations, Denies dyspnea, Denies dyspnea on exertion and Denies orthopnea Resp Denies cough, Denies dyspnea and Denies dyspnea on exertion GI Denies hematochezia and Denies change in stool character Musc Denies abnormal gait, Denies limited range of motion, Denies muscle cramps, Denies muscle weakness, Denies numbness, Denies radiating pain into limb, Denies stiffness and Denies tingling Neuro Denies abnormal gait, Denies dizziness, Denies numbness and Denies tingling Endo Reports palpitations Physical Exam Vital Signs: BMI result Body Mass Index 37.9 Const General: cooperative, healthy appearing, comfortable and no acute distress Orientation/consciousness: patient oriented x3 Neck Neck: Yes normal visual inspection and Yes no JVD Resp Effort & Inspection: normal respiratory effort Auscultation: clear to auscultation bilaterally, no crackles, no rales, no rhonchi and no wheezes Cardio Jugular venous distension: no JVD Rate: regular rate Rhythm: regular rhythm Heart sounds: S1 normal heart sound present, S2 normal heart sound present, no murmurs and no rubs Peripheral pulses: Peripheral pulses 2+ throughout Neuro General: patient oriented x3 Extrem General: Yes normal to inspection, No no pedal edema and No calf tenderness Psych Appearance: grossly normal Mental Status: mental status grossly normal Speech and movement: Normal speech and movement present Office Procedures EKG Details: Today, read by me, normal sinus rhythm, low-voltage QRS, QTC 414 milliseconds, rate 64 [id number], Complete Results Reviewed Results Reviewed: Echocardiogram done 06/11/24 shows EF 65-70%, possible early aortic stenosis, No regional WMA. Assessment & Plan Assessment & Plan (1) PAF (paroxysmal atrial fibrillation): Code(s): I48.0 - Paroxysmal atrial fibrillation Category: Medical Plan: History of paroxysmal atrial fibrillation, symptomatic with episodes occurring at least once a month lasting 4-5 hours. She has been on carvedilol for heart rate control and Eliquis for anticoagulation. Last echo 06/11/24 shows normal EF and atria normal sizes. EKG done today shows normal sinus rhythm, rate 64. Will start on flecainide 50 mg b.i.d.. Office EKG 1 week following the start of this medication. (she is going on vacation and does not plan to start it right away.) Will order exercise stress test to evaluate for ischemia. Continue carvedilol. Cardiology follow-up 6 weeks, approximately 1 month post start of flecainide. Emergency care if ever needed for sustained heart palpitations. (2) Essential hypertension: Code(s): I10 - Essential (primary) hypertension Category: Medical Plan: Blood pressure goal less than 130/80. Normal on exam today. Continue carvedilol and lisinopril. (3) Aortic stenosis: Code(s): I35.0 - Nonrheumatic aortic (valve) stenosis Category: Medical Plan: Last echo 06/11/2024 showing early aortic stenosis. Plan for repeat echo in approximately 2 year from last. Plan Time spent on chart review, documentation, interview and assessment Orders: Orders CA stress test Today I48.0 - Paroxysmal atrial fibrillation Medications: New flecainide 50 mg PO Q12H 60 tabs 5RF Coding Level of Care Code Est Pt Level 4 (57340) Complex EM visit Add On G2211 Diagnoses PAF (paroxysmal atrial fibrillation) I48.0 Essential hypertension I10 Aortic stenosis I35.0 CPT Codes EKG - CPT: 20491-[id number], Complete ([id number]) Time Spent (min) 30
--- OUTSIDE RECORDS SUMMARY | 2024-11-25 16:15 | XMS_ITS | Clinical Summary ---
Author Organization [facility] Address [address] [place] [address] Phone Care Team Providers Care Electroslag Welding Machine Operator Name Role Phone Maria Isabel Avendano MD Primary Care Provider Encounters Date Type Department Care Team Description 11/19/[address] [facility] - Main Lab [address] [facility] [place] [address] Maryann Awad MD Other abnormal [...] ssp pneumoniae(A) JUDY 11/21/2024 10:02 AM EDT [facility]) [facility] Comment: This is an edited [...] - GENER AL ORDERABLES Final Result [facility] ([facility]) [facility] [address] [place] [address], from Last 3 Months Insurance [facility] Care Teams Electroslag Welding Machine Operator Relationship Specialty Start Date End Date Maria Isabel Avendano MD [address] [place] [phone] PCP - General Internal Medicine 11/20/24
--- OUTSIDE RECORDS SUMMARY | 2024-11-25 16:15 | XMS_ITS | Encounter Summary ---
Author Organization [facility] Address [address] [place] [address] Care Team Providers Care Sales Stock Associate Name Role Phone Maria Isabel Avendano MD Primary Care Provider [phone] Encounter Details Date Type Department Care Team (Late st Contact Info) Description 11/19/2024 Lab Requisition [facility] - Main Lab [address] [facility] [employer] [place] [address] Maryann Awad MD [address] [address] Other abnormal findings in urine Social History [...] ssp pneumoniae(A) JUDY 11/21/2024 10:02 AM EDT [facility]) [facility] Comment: This is an [...] MICROBIOLOGY - GENER AL ORDERABLES Final Result [facility] [address] [place] [address], documented in this encounter Visit Diagnoses Diagnosis Other abnormal findings in urine documented in this encounter Care Teams Sales Stock Associate Relationship Specialty Start Date End Date Maria Isabel Avendano MD [address] [place] [address] PCP - General Internal Medicine 11/20/24 documented as of this encounter
== END 2024-11-25 13:57 | disposition home or self-care (01) ==
LOC: HO.HCS 13:18
PROVIDERS: PCP Internal Medicine; Visit Provider Nurse Practitioner Family
DX: I48.0 Paroxysmal atrial fibrillation (principal); I10 Essential (primary) hypertension; I35.0 Nonrheumatic aortic (valve) stenosis
CPT/HCPCS: 93010; 99214

== ENCOUNTER 2024-11-26 11:30 | Outpatient (AMB) | payer OTHER, SELFPAY ==
--- NOTE | 2024-11-26 11:41 | A.OFFPC_ITS ---
Vital Signs 11/26/24 11:42 Height 5 ft 3 in Weight 215 lb 8 oz BMI 38.2 BP 120/78 Blood Pressure Location Rt brachial Position Sitting Pulse 63 Pulse Source Pulse Oximeter Pulse Oximetry (%) 95 Oxygen Delivery Method Room Air Intake Visit Reasons: Annual PE Allergies clavulanic acid [From AUGMENTIN] Adverse Reaction (Mild, Verified 11/26/24 11:44) Irritable Medication List - Last Reconciled 11/26/24 by Maria Isabel Avendano MD albuterol sulfate 90 mcg/actuation 2 puffs PO Q4H PRN apixaban (Eliquis) 5 mg PO BID 90 days carvedilol 6.25 mg PO BID 90 days escitalopram oxalate 20 mg PO DAILY flecainide 50 mg PO Q12H lisinopril 30 mg PO DAILY 90 days Tobacco use date assessed: 11/26/24 Dental Screening Dental Screen Date: 11/26/24 Did you have a dental visit in the last 12 months?: Yes Did you have a dental problem in the last 6 months where you did not have access to dental care?: No Was dental information given to patient?: Patient has dentist HPI Annual PE HPI Details History of Present Illness - The patient is a 58-year-old female pr esenting with concerns about atrial fibrillation and its management, her current medication regimen, and difficulty with mobility due to knee pain. - She reports experiencing atrial fibril lation episodes approximately once a month, lasting between three to five hours. - Her heart rate increases significantly during these episodes, sometimes exceeding 150 beats per minute. - Associated symptoms include rapid hear t rate, shortness of breath, and discomfort including jaw and neck pain. - She reports difficulty sitting due to knee pain and increased breathlessness with physical activity. - Mentioned difficulty walking or engagi ng in extended physical activity due to knee discomfort. - Previous consultations with a cardiolo gist have resulted in the advice of starting flecainide for rhythm control - Also experiencing recurrent yeast infe ctions following antibiotic use, suspected secondary to prediabetes affecting her glucose tolerance and potentially contributing to susceptibility. - The patient is advised to consider an evaluation by an obesity specialist. - Past surgical history includes a colon oscopy within the last year. - Upcoming healthcare engagements includ e a mammogram scheduled for January. - Reports not having had an OBGYN visit following a rescheduling issue. Health Maintenance - Mammogram scheduled for January; recent c olonoscopy was performed within the last year. - Encouraged to limit sugar intake due t o prediabetes status, particularly while on antibiotics. - colonoscopy up-to-date - awaiting OBGYN visit Medications - Escitalopram 20 mg for depression/anxi ety, managed by this office. - Lisinopril 30 mg for hypertension, robyn rced from this office. - Apixaban (Eliquis) for atrial fibrilla tion. - Carvedilol for atrial fibrillation. - Not yet initiated on Flecainide for rh ythm management; plan to start after cardiology consultation. Patient Instructions - Reduce sugar and starch intake, partic ularly when on antibiotics to prevent yeast infections. - Continue monitoring symptoms of atrial fibrillation and report significant changes. - Pursue scheduling an OBGYN appointment for routine care. - Consult with a physician industrial about init iating flecainide for rhythm control and discuss side effects and interactions. - Follow-up with mammogram appointment i n January. - Engage in gentle physical activity as tolerated by knee pain. - Be aware of symptoms related to heart rate and report increases or ir regularities promptly. Review of Systems - General: No fever no chills - Neurological: No headaches no dizzin ess - Ear nose throat: No sore throat no hearing difficulty no ear pain - Cardiovascular: No syncope, no chest pain, - Gastrointestinal: No nausea vomiting or diarrhea - Endocrine: No polyuria polydipsia no heat intolerance - Genitourinary: No dysuria - Skin: No new complaints Physical Exam General: Cooperative, healthy appearing, comfortable, no acute distress Orientation: Patient oriented x3 Head: Normal to inspection Ears: Within normal limit visually Nose: Normal external nose present Face and sinus: Normal facial exam Eyes: Appearance normal, extraocular movement intact pupils reactive Neck: Normal visual inspection and supple, patient reports occasional pain in the neck Respiratory: Normal respiratory effort and able to speak in complete sentences. Clear to auscultation, no stridor, Cardiovascular: S1 and S2, heart rate is regular at this time GI: Normal to inspection. Soft to palpation and nontender, Skin: Turgor normal, no acute findings Neuro: Patient oriented x3, motor sensory intact, balance intact, tandem pass Extremities: Normal to inspection, patient reports knee pain affecting mobility [facility] Medical History Impaired fasting blood sugar Encounter for general adult medical examination with abnormal findings Itching of ear Hospital discharge follow-up Biliary colic Cholelithiasis RUQ abdominal pain Obesity due to excess calories Change in bowel function Rectal bleed Encounter for routine gynecological examination Ex-smoker Shortness of breath Premature atrial contraction Obesity Fear of flying History of renal calculi Migraine headache Anxiety, generalized Surgical History Hx laparoscopic cholecystectomy (01/13/23) Hx of colonoscopy History of ureter stent History of cystoscopy History of appendectomy History of tonsillectomy History of section History of knee surgery History of lithotripsy History of oophorectomy Family History Father Unknown family medical history Mother COPD (chronic obstructive pulmonary disease) HTN (hypertension) CVD (cardiovascular disease) Son No problems noted. Daughter No problems noted. 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 1. Little interest or pleasure in doing things: not at all 2. Feeling down, depressed, or hopeless: not at all 3. Trouble falling or staying asleep, or sleeping too much: not at all 4. Feeling tired or having little energy: not at all 5. Poor appetite or overeating: not at all 6. Feeling bad about yourself - or that you are a failure or have let yourself or your family down: not at all 7. Trouble concentrating on things, such as reading the newspaper or watching television: not at all 8. Moving or speaking so slowly that other people could have noticed. Or the opposite - being so fidgety or restless that you have been moving around a lot more than usual: not at all 9. Thoughts that you would be better off or of hurting yourself in some w ay: not at all Total score: 0 Depression Screening Interpretation: Negative Depression Screening Done: Yes 39704 - PHQ-9 Billing: Yes Source: Developed by Drs. Frederick Benton, Vaishnavi Cadena, Reza Mandel and colleagues, with an educational low from [employer] Thrive Questionnaire Date Thrive assessed: 11/26/24 I am a: Patient What is your living situation today?: I have a steady place to live Within the past 12 months, did the food you bought not last and you didn't have the money to get more?: Never true Within the past 12 months, did you worry whether your food would run out before you got money to buy more?: Never true Do you have trouble paying for medicines?: No Do you have trouble getting transportation to medical appointments?: No Do you have trouble paying your heating and electricity bill?: No Do you have trouble taking care of your child, family member or friend?: No Do you have trouble with day-to-day activities such as bathing, preparing meals, shopping, managing finances, etc.?: No Are you currently unemployed and looking for a job?: No Are you interested in more education?: No Please select the resources that you would like help with: None Currently or been in a relationship where the following occur: No concerns reported THRIVE Score: 0 AUDIT C Alcohol Use Questionnaire (AUDIT-C) 1. How often do you have a drink containing alcohol?: Monthly or less 2. How many drinks containing alcohol do you have on a typical day when you are drinking?: 1 or 2 3. How often do you have six or more drinks on one occasion?: Never Total Score: 1 Score Reviewed/Action Taken: Yes ADRIANNA-7 AMB Questionnaire ADRIANNA-7 Date ADRIANNA - 7 assessed: 11/26/24 Feeling nervous, anxious, or on edge: 0 = Not at all Not being able to stop or control worryin = Not at all Worrying too much about different things: 0 = Not at all Trouble relaxin = Not at all Being so restless that it is hard to sit still: 0 = Not at all Becoming easily annoyed or irritable: 0 = Not at all Feeling afraid as if something awful might happen: 0 = Not at all Total ADRIANNA-7 score (0-4 normal; 5-9 mild; 10-14 moderate; 15-21 severe): 0 Source: Developed by Drs. Frederick Benton, Vaishnavi Cadena, Reza Mandel and colleagues, with an educational low from [employer] ADRIANNA-7 Assessment Billing ADRIANNA-7 Assessment Tool: ADRIANNA-7 Assessment 06060 Physical exam (Primary Care) Vital Signs: Last Vital Signs Pulse 63 11/26/24 11:42 BP 120/78 11/26/24 11:42 Pulse Ox 95 11/26/24 11:42 Oxygen Delivery Method Room Air 11/26/24 11:42 BMI result Body Mass Index 38.2 Tobacco/Smoking Status: Tobacco use Status Tobacco use date assessed 11/26/24 11/26/24 11:45 Patient Tobacco Use Status Never used Tobacco 11/26/24 11:44 Tobacco use type Cigarette 11/26/24 11:44 e-Cigarette/Vaping Use Never Used 11/26/24 11:44 PHQ-9: PHQ-9 Score PHQ-9: Total score 0 11/26/24 12:03 Depression Screening Interpretation: Negative Thrive Assessment: Date of Thrive Assessment Date Thrive assessed 11/26/24 11/26/24 11:45 Currently or been in a relationship where the following occur: No concerns reported Coding Level of Care Code Est Pt Level 4 (64534) Est Pt Prev Care 40-64y(52692) Diagnoses Encounter for general adult medical examination with abnormal findings Z00.01 PAF (paroxysmal atrial fibrillation) I48.0 Essential hypertension I10 Recurrent major depressive disorder, in full remission F33.42 Active/Remission status: in full remission Impaired fasting blood sugar R73.01 Migraine without status migrainosus, not intractable, unspecified migraine type G43.909 Migraine type: unspecified Status migrainosus presence: without status migrainosus Intractability: not intractable Anxiety, generalized F41.1 Class 2 severe obesity due to excess calories with serious comorbidity and body mass index (BMI) of 38.0 to 38.9 in adult E66.01; Z68.38 Obesity type: due to excess calories Obesity classification: adult class 2 (BMI 35 - 39.9) Serious obesity comorbidity presence: with serious comorbidity Body mass index: BMI 38.0-38.9 Additional Codes ADRIANNA-7 Assessment Billing - ADRIANNA-7 Assessment Tool: ADRIANNA-7 Assessment 03501 ([id number]) PHQ-9 - 21420 - PHQ-9 Billing: Yes ([id number]) Assessment & Plan Assessment & Plan (1) Encounter for general adult medical examination with abnormal findings: Code(s): Z00.01 - Encounter for general adult medical examination with abnormal findings Category: Medical (2) PAF (paroxysmal atrial fibrillation): Code(s): I48.0 - Paroxysmal atrial fibrillation Category: Medical (3) Essential hypertension: Code(s): I10 - Essential (primary) hypertension Category: Medical (4) Major depression, recurrent: Code(s): F33.9 - Major depressive disorder, recurrent, unspecified Category: Medical Qualifiers: Active/Remission status: in full remission Qualified Code(s): F33.42 - Major depressive disorder, recurrent, in full remission (5) Impaired fasting blood sugar: Code(s): R73.01 - Impaired fasting glucose Category: Medical (6) Migraine headache: Code(s): G43.909 - Migraine, unspecified, not intractable, without status migrainosus Category: Medical Qualifiers: Migraine type: unspecified Status migrainosus presence: without status migrainosus Intractability: not intractable Qualified Code(s): G43.909 - Migraine, unspecified, not intractable, without status migrainosus (7) Anxiety, generalized: Code(s): F41.1 - Generalized anxiety disorder Category: Medical (8) Obesity: Code(s): E66.9 - Obesity, unspecified Category: Medical Qualifiers: Obesity type: due to excess calories Obesity classification: adult class 2 (BMI 35 - 39.9) Serious obesity comorbidity presence: with serious comorbidity Body mass index: BMI 38.0-38.9 Qualified Code(s): E66.01 - Morbid (severe) obesity due to excess calories; Z68.38 - Body mass index [BMI] 38.0- 38.9, adult Plan History of Present Illness - The patient is a 58-year-old female presenting with concerns about atrial fibrillation and its management, her current medication regimen, and difficulty with mobility due to knee pain. - She reports experiencing atrial fibrillation episodes approximately once a month, lasting between three to five hours. - Her heart rate increases significantly during these episodes, sometimes exceeding 150 beats per minute. - Associated symptoms include rapid heart rate, shortness of breath, and discomfort including jaw and neck pain. - She reports difficulty sitting due to knee pain and increased breathlessness with physical activity. - Mentioned difficulty walking or engaging in extended physical activity due to knee discomfort. - Previous consultations with a physician industrial have resulted in the advice of starting flecainide for rhythm control - Also experiencing recurrent yeast infections following antibiotic use, suspected secondary to prediabetes affecting her glucose tolerance and potentially contributing to susceptibility. - The patient is advised to consider an evaluation by an obesity specialist. - Past surgical history includes a colonoscopy within the last year. - Upcoming healthcare engagements include a mammogram scheduled for January. - Reports not having had an OBGYN visit following a rescheduling issue. Health Maintenance - Mammogram scheduled for January; recent colonoscopy was performed within the last year. - Encouraged to limit sugar intake due to prediabetes status, particularly while on antibiotics. - colonoscopy up-to-date - awaiting OBGYN visit Medications - Escitalopram 20 mg for depression/anxiety, managed by this office. - Lisinopril 30 mg for hypertension, sourced from this office. - Apixaban (Eliquis) for atrial fibrillation. - Carvedilol for atrial fibrillation. - Not yet initiated on Flecainide for rhythm management; plan to start after cardiology consultation. Patient Instructions - Reduce sugar and starch intake, particularly when on antibiotics to prevent yeast infections. - Continue monitoring symptoms of atrial fibrillation and report significant changes. - Pursue scheduling an OBGYN appointment for routine care. - Consult with a physician industrial about initiating flecainide for rhythm control and discuss side effects and interactions. - Follow-up with mammogram appointment in January. - Engage in gentle physical activity as tolerated by knee pain. - Be aware of symptoms related to heart rate and report increases or irregularities promptly. Medications: Changed From carvedilol must administer with a meal/food 6.25 mg PO BID 90 days 180 tabs 3RF To carvedilol must administer with a meal/food 12.5 mg PO BID 90 days 180 tabs 1RF From lisinopril 30 mg PO DAILY 90 days 90 tabs 1RF I10 - Essential (primary) hypertension To lisinopril 10 mg PO DAILY 90 days 90 tabs 1RF I10 - Essential (primary) hypertension
[2024-11-26 11:42] VITALS: BP 120/78; PULSE 63; O2SAT 95; BMI 38.2
--- OUTSIDE RECORDS SUMMARY | 2024-11-26 12:36 | XMS_ITS | Encounter Summary ---
Author Organization [employer] Address [address] [place] [address] Care Team Providers Care Dog Licenser Name Role Phone Maria Isabel Avendano MD Primary Care Provider [phone] Encounter Details Date Type Department Care Team (Late st Contact Info) Description 11/19/2024 Lab Requisition [facility] - Main Lab [address] [facility] [place] [address] Maryann Awad MD [address] [address] Other abnormal findings in urine Social History [...] ssp pneumoniae(A) JUDY 11/21/2024 10:02 AM EDT [facility] ([facility]) [facility] Comment: This is an edited [...] MICROBIOLOGY - GENER AL ORDERABLES Final Result [facility] ([facility]) [facility] [address] [place] [address], documented in this encounter Visit Diagnoses Diagnosis Other abnormal findings in urine documented in this encounter Care Teams Dog Licenser Relationship Specialty Start Date End Date Maria Isabel Avendano MD [address] [place] [address] PCP - General Internal Medicine 11/20/24 documented as of this encounter
--- OUTSIDE RECORDS SUMMARY | 2024-11-26 12:36 | XMS_ITS | Clinical Summary ---
Author Organization [address] [facility] Address [address] [place] [address] Phone Care Team Providers Care Technology Teacher Name Role Phone Maria Isabel Avendano MD Primary Care Provider [phone] Encounters Date Type Department Care Team Description 11/19/2024 Lab Requisition [facility] - Main Lab [address] [facility] [place] [address] Maryann Awad MD Other abnormal [...] ssp pneumoniae(A) JUDY 11/21/2024 10:02 AM EDT [facility]) [facility] Comment: This is an edited result. [...] AL ORDERABLES Final Result [facility] ([facility]) [facility] [address] [place] [address], from Last 3 Months Insurance [facility] Care Teams Technology Teacher Relationship Specialty Start Date End Date Maria Isabel Avendano MD [address] [place] [phone] PCP - General Internal Medicine 11/20/24
== END 2024-11-26 12:05 | disposition home or self-care (01) ==
LOC: HO.HMCC 11:31
PROVIDERS: PCP Internal Medicine; Visit Provider Internal Medicine
DX: Z00.01 Encounter for general adult medical examination with abnormal findings (principal); I48.0 Paroxysmal atrial fibrillation; F33.42 Major depressive disorder, recurrent, in full remission; Z68.38 Body mass index [BMI] 38.0-38.9, adult; E66.01 Morbid (severe) obesity due to excess calories; G43.909 Migraine, unspecified, not intractable, without status migrainosus; I10 Essential (primary) hypertension; R73.01 Impaired fasting glucose; F41.1 Generalized anxiety disorder

== ENCOUNTER → 2024-11-26 11:30 | Outpatient (BNVA) | payer OTHER, SELFPAY | PROVIDERS: PCP Internal Medicine; Visit Provider Internal Medicine | DX: Z00.01 Encounter for general adult medical examination with abnormal findings (principal); I48.0 Paroxysmal atrial fibrillation; I10 Essential (primary) hypertension; F33.42 Major depressive disorder, recurrent, in full remission; R73.01 Impaired fasting glucose; G43.909 Migraine, unspecified, not intractable, without status migrainosus; F41.1 Generalized anxiety disorder; E66.01 Morbid (severe) obesity due to excess calories; Z68.38 Body mass index [BMI] 38.0-38.9, adult; Z79.01 Long term (current) use of anticoagulants; Z79.899 Other long term (current) drug therapy | CPT/HCPCS: 96127 ==

== ENCOUNTER 2025-01-14 09:57 | Outpatient (REF) | payer OTHER, SELFPAY ==
--- NOTE | ~2025-01-14 | MM_ITS ---
EXAMINATION: MM SCREENING DIGITAL BREAST TOMOSYNTHESIS, BILATERAL CLINICAL INFORMATION: Screening. Asymptomatic. COMPARISON: Mammography: Comparison is made with available priors TECHNIQUE: Digital breast mammography with tomosynthesis is performed in both the craniocaudal and mediolateral oblique views along with computer-aided detection (CAD). FINDINGS: There are scattered areas of fibroglandular density (ACR BI-RADS breast composition Category b). There are no significant masses, abnormal calcifications, or other abnormalities. MM/MM tomosynthesis screening BI IMPRESSION: No mammographic evidence of malignancy. ASSESSMENT: BI-RADS BI-RADS 1 - Negative RECOMMENDATION: Routine annual mammography screening. 1 year F/U This examination should not preclude the clinical evaluation of a suspicious palpable abnormality. This patient's information was entered into a reminder system with a target due date for their next mammogram. Electronically signed by: Lisa Duron DO 01/19/2025 11:36 AM EDT
--- OUTSIDE RECORDS SUMMARY | 2025-01-14 10:42 | XMS_ITS | Clinical Summary ---
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 Lab Requisition [facility] Lab [address] [place] [address] Maryann Awad MD Other abnormal [...] DTaP,Tdap,and Td Vaccines (1 - Tdap) 12/07/1983 Cervical Cancer Screening: P ap Smear [...] patient's age to complete this topic Hepatitis B Vaccines Aged Out No long er eligible [...] Date/Time Associated Diagnosis Comments CULTURE URINE Routine 12/31/2024 12:00 AM EDT Hypocitraturia CULTURE URINE Routine 11/19/2024 1:33 PM EDT Other abnormal findings in urine from Last 3 Months Results * (ABNORMAL) Culture urine (12/31/2024 12:00 AM EDT) Only the most recent of2 resultswithin the time period is included. Culture, Urine 10,000-49,000 CFU/mL Klebsiella pneumoniae ssp pneumoniae(A) JUDY 01/02/2025 10:[address] [facility] Comment: This is an edited result. Previous organism was Gram negative bacilli on 01/01/2025 at 1310 EDT. Urine Urine specimen from urethra / Unknown 12/31/2024 12/31/2024 7:09 PM EDT Narrative Organism Antibiotic Method Susceptibility [...] Susceptible Klebsiella pneumoniae ssp pneumoniae Nitrofurantoin JUDY 128 ug/ml: Resistant Klebsiella pneumoniae ssp pneumoniae Trimethoprim/Sulfamethoxazo le JUDY <=20 ug/ml: Susceptible us Liat Hdz MD LAB MICROBIOLOGY - G ENERAL ORDERABLES Final Result [facility] [address] [place] [address], from Last 3 Months Insurance [facility] Care Teams Poultry Dresser Relationship Specialty Start Date End Date Maria Isabel Avendano MD [address] [place] [address] PCP - General Internal Medicine 11/20/24
== END 2025-01-14 09:58 | disposition home or self-care (01) ==
LOC: HO.MAMMO 09:57
PROVIDERS: Visit Provider Internal Medicine
DX: Z12.31 Encounter for screening mammogram for malignant neoplasm of breast (principal)
CPT/HCPCS: 77063; 77067

== ENCOUNTER → 2025-01-14 10:00 | Outpatient (BNV) | payer OTHER, SELFPAY | PROVIDERS: Visit Provider Internal Medicine | DX: Z12.31 Encounter for screening mammogram for malignant neoplasm of breast (principal) | CPT/HCPCS: 77063; 77067 ==

== ENCOUNTER → 2025-04-29 09:55 | Outpatient (REF) | payer OTHER, SELFPAY ==
--- OUTSIDE RECORDS SUMMARY | 2025-04-29 10:27 | XMS_ITS | Clinical Summary ---
Author Organization 299 [facility] Address [address] [place] [address] Phone Care Team Providers Care Surgical Asst Name Role Phone Maria Isabel Avendano MD Primary Care Provider [phone] Social History Tobacco Use Types Packs/Day Years [...] 2) 2014 Colorectal Cancer Screening: Colonoscopy 09/05/2023 HIV Screening 09/05/2023 Hepatitis C Screening 09/05/2023 Social Influencers of Health Screening 09/05/2023 Depression Screening 08/11/2024 COVID-19 Vaccine ( - 2023-2 5 season) 2025 Influenza Vaccine (#1) 2025 RSV Immunization Adult Patie nts (1 [...] on patient's age to complete this topic Insurance [facility] Care Teams Surgical Asst Relationship Specialty Start Date End Date Maria Isabel Avendano MD [address] [facility] [place] [address] PCP - General Internal Medicine 11/20/24
--- OUTSIDE RECORDS SUMMARY | 2025-04-29 10:27 | XMS_ITS | Encounter Summary ---
Author Organization [employer] Address [address] [place] [address] Care Team Providers Care Rock Loader Name Role Phone Maria Isabel Avendano MD Primary Care Provider [phone] Encounter Details Date Type Department Care Team (Late st Contact Info) Description 12/31/2024 Lab Requisition [facility] - Main Lab [address] [facility] [place] [address] Liat Hdz MD [address] [id number] Hypocitraturia Social History Tobacco Use Types Packs/Day Years [...] URINE Routine 12/31/2024 12:00 AM EDT Hypocitraturia documented in this encounter Results * (ABNORMAL) Culture urine (12/31/2024 12:00 AM EDT) Culture, Urine 10,000-49,000 CFU/mL Klebsiella pneumoniae ssp pneumoniae(A) JUDY 01/02/2025 10:17 AM EDT [facility] ([facility]) [facility] Comment: This is an edited [...] MICROBIOLOGY - G ENERAL ORDERABLES Final Result [facility] ([facility]) [facility] [address] [place] [address], [place] [phone] documented in this encounter Visit Diagnoses Diagnosis Hypocitraturia Other nonspecific finding on examination of urine documented in this encounter Care Teams Rock Loader Relationship Specialty Start Date End Date Maria Isabel Avendano MD [address] [facility] [place] [address] PCP - General Internal Medicine 11/20/24 documented as of this encounter
--- OUTSIDE RECORDS SUMMARY | 2025-04-29 10:27 | XMS_ITS | Encounter Summary ---
Author Organization [facility] Address [address] [place] [address] Care Team Providers Care Business Continuity Director Name Role Phone Maria Isabel Avendano MD Primary Care Provider [phone] Encounter Details Date Type Department Care Team (Late st Contact Info) Description 11/19/2024 Lab Requisition [facility] - Main Lab [address] [facility] [place] [address] Maryann Awad MD [address] [place], [place] [id number] Other abnormal findings in urine Social History [...] ssp pneumoniae(A) JUDY 11/21/2024 10:02 AM EDT [facility] ([facility]) [facility] Comment: This is an [...] MICROBIOLOGY - GENER AL ORDERABLES Final Result [facility] HOSPITAL LAB [address] [place] [address], documented in this encounter Visit Diagnoses Diagnosis Other abnormal findings in urine documented in this encounter Care Teams Business Continuity Director Relationship Specialty Start Date End Date Maria Isabel Avendano MD [address] [facility] [place] [address] PCP - General Internal Medicine 11/20/24 documented as of this encounter
--- NOTE | 2025-04-29 11:02 | CA_ITS ---
Acquisition Time: 2025-04-29 10:12:00 Total Exercise Time: 00:04:39 Test Indications: PAF Medications: CARVEDILOL LISINOPRIL ELIQUIS Protocol: BECK Max HR: 133 BPM 83% of Pred: 160 BPM Max BP: 128/70 mmHG Max Work Load: 6.5 METS Exercise stress test with exercise 4 mins 39 secs of Beck Protocol, achieving 80% MPHR, with reports of severe sOB requesting to stop, with frquent PACs, with normotensive response to exercise. Without any EKG changes meeting criteria for ischemia at the achieved workload. In recovery, pt's breathing retruned to baseline. Will order stress test with [facility] for further evaluation. Test reviewed with Dr. Rios. Referred By: Shahla Bunrs Electronically Signed By: Junior Bettencourt
== END ==
LOC: HO.CARD 09:55
PROVIDERS: Visit Provider Nurse Practitioner Family
DX: I48.0 Paroxysmal atrial fibrillation (principal)
CPT/HCPCS: 93017

== ENCOUNTER → 2025-04-29 11:02 | Outpatient (BNV) | payer OTHER, SELFPAY | DX: I49.1 Atrial premature depolarization (principal); R06.02 Shortness of breath | CPT/HCPCS: 93016; 93018 ==

== ENCOUNTER 2025-05-13 13:06 | Outpatient (AMB) | payer OTHER, SELFPAY ==
--- NOTE | 2025-05-13 13:14 | A.OFFVIS_ITS ---
Vital Signs 05/13/25 13:15 Height 5 ft 3 in Weight 216 lb 7.903 oz BMI 38.3 BP 124/70 Blood Pressure Location Lt brachial Position Sitting Pulse 65 Pulse Source Monitor Intake Visit Reasons: Follow up after testing Product Development Scientist Required: No Accompanied by: Self / Same As Patient Allergies clavulanic acid (From AUGMENTIN) Adverse Reaction (Mild, Verified 05/13/25 13:17) Irritable Medication List - Last Reconciled 05/13/25 by Shahla Burns ASP NET C DEVELOPER-C albuterol sulfate 90 mcg/actuation 2 puffs PO Q4H PRN apixaban (Eliquis) 5 mg PO BID 90 days carvedilol 12.5 mg PO BID 90 days escitalopram oxalate 20 mg PO DAILY lisinopril 10 mg PO DAILY 90 days omeprazole 20 mg PO DAILY HPI HPI Follow up after testing: Details: Melida is a 59-year-old female past medical history of hypertension,renal calculi with prior hematuria, paroxysmal atrial fibrillation, who presents for follow- up. Today she reports that she has been getting heart palpitations 1-2 times per month lasting 3- 6 hours. She has a smart watch and his recorded this to be atrial fibrillation - strips reviewed by me and Afib confirmed. She notices fatigue after episode has resolved. She tried the Flecanide for 2 weeks but states she actually had more afib while taking it. She knows that alcohol is a trigger for her and does not drink routinely. Other times her episodes just occur randomly. No chest discomfort at rest or with activity. No presyncope, syncope, PND, orthopnea or edema. She has shortness of breath with exertional activities such as walking and stair climbing which is not new. She recently had an exercise stress test and was very short of breath after 4.5 minutes of walking and is now going to have a pharmacological nuclear stress test. Is trying to work on weight loss but has a sedentary job which makes it more challenging. 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 No bleeding issues reported. Takes her meds as directed [facility] Medical History Impaired fasting blood sugar Encounter for general adult medical examination with abnormal findings Itching of ear Hospital discharge follow-up Biliary colic Cholelithiasis RUQ abdominal pain Obesity due to excess calories Change in bowel function Rectal bleed Encounter for routine gynecological examination Ex-smoker Shortness of breath Premature atrial contraction Obesity Fear of flying History of renal calculi Migraine headache Anxiety, generalized Surgical History Hx laparoscopic cholecystectomy (01/13/23) Hx of colonoscopy History of ureter stent History of cystoscopy History of appendectomy History of tonsillectomy History of section History of knee surgery History of lithotripsy History of oophorectomy Family History Father Unknown family medical history Mother COPD (chronic obstructive pulmonary disease) HTN (hypertension) CVD (cardiovascular disease) Son No problems noted. Daughter No problems noted. 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 Cognitive needs: No Hearing needs: No Vision needs: Yes Review of Systems Const All systems reviewed & are unremarkable except as noted in HPI and below Denies daytime sleepiness, Denies difficulty sleeping, Denies snoring, Denies stops breathing during sleep and Denies weakness Card Denies chest pain, Reports rapid heart rate (palpitations), Denies irregular heart rhythm, Denies claudication, Denies leg edema, Denies lightheadedness, Denies palpitations, Denies dyspnea, Denies dyspnea on exertion, Denies orthopnea, Denies paroxysmal nocturnal dyspnea and Denies slow heart rate Resp Denies cough, Denies dyspnea, Denies dyspnea on exertion and Denies snoring GI Reports no additional complaints, Denies hematochezia, Denies change in stool character and Denies dyspepsia Musc Denies abnormal gait, Denies muscle weakness and Denies numbness Neuro Denies abnormal gait, Denies numbness and Denies weakness Endo Denies palpitations Physical Exam Vital Signs: BMI result Body Mass Index 38.3 Const General: cooperative, healthy appearing, comfortable and no acute distress Orientation/consciousness: patient oriented x3 Neck Neck: Yes normal visual inspection and Yes no JVD Resp Effort & Inspection: normal respiratory effort Auscultation: clear to auscultation bilaterally, no crackles, no rales, no rhonchi and no wheezes Cardio Jugular venous distension: no JVD Rate: regular rate Rhythm: regular rhythm Heart sounds: S1 normal heart sound present, S2 normal heart sound present, no murmurs and no rubs Peripheral pulses: Peripheral pulses 2+ throughout Neuro General: patient oriented x3 Extrem General: Yes normal to inspection, No no pedal edema and No calf tenderness Psych Appearance: grossly normal Mental Status: mental status grossly normal Speech and movement: Normal speech and movement present Office Procedures EKG Details: Today, read by me, sinus rhythm, low-voltage QRS, rate 65, QTC 407 milliseconds [id number], Complete Assessment & Plan Assessment & Plan (1) PAF (paroxysmal atrial fibrillation): Code(s): I48.0 - Paroxysmal atrial fibrillation Category: Medical Plan: History of paroxysmal atrial fibrillation, symptomatic with episodes currently occurring 1-2 times per month lasting 3-6 hours. Episodes have been increasing over the last year. Last echo 06/11/24 shows normal EF and atria normal sizes. Flecanide was added to her Carvedilol last visit and she reported having increased heart palpitations. EKG done today shows normal sinus rhythm, rate [address] Rios - Will stop Carvedilol and start Diltiazem 240mg daily. Continue Eliquis for anticoagulation. If she has recurrent episodes on Diltiazem, then plan to add Multaq. We discussed ablation and she is interested -.Will refer to EP, Dr Cortez, [facility]. Instructed to call if having recurrent AF. Emergency care if ever needed for sustained heart palpitations. Cardiology OV in 3 mo, sooner if needed. Anticipate this to be post ablation. (2) Essential hypertension: Code(s): I10 - Essential (primary) hypertension Category: Medical Plan: Blood pressure goal less than 130/80. Normal on exam today. Continue lisinopril. (3) Aortic stenosis: Code(s): I35.0 - Nonrheumatic aortic (valve) stenosis Category: Medical Plan: Last echo 06/11/2024 showing early aortic stenosis. Plan for repeat echo in approximately 2 year from last. (4) Abnormal stress ECG with treadmill: Code(s): R94.39 - Abnormal result of other cardiovascular function study Category: Medical Plan: Exercise stress test done 04/29/2025 with exercise 4 minutes 39 seconds with severe shortness of breath, frequent PACs, no EKG changes of ischemia. She was put in for a pharmacological nuclear stress test to further evaluate for ischemia due to her significant shortness of breath. Plan Time spent on chart review, documentation, interview and assessment Orders: Orders NM cardiolite stress test Today R94.39 - Abnormal result of other cardiovascular function study Referrals Cardiac Electrophysiology Referral I48.0 - Paroxysmal atrial fibrillation Medications: New diltiazem HCl CD (Cardizem CD) Stop carvedilol - start Diltiazem 240 mg PO DAILY 30 caps 2RF Discontinued carvedilol must administer with a meal/food Discontinued Reason: Doctor's Order 12.5 mg PO BID 90 days 180 tabs 1RF Coding Level of Care Code Est Pt Level 4 (05559) Complex EM visit Add On G2211 Diagnoses PAF (paroxysmal atrial fibrillation) I48.0 Essential hypertension I10 Aortic stenosis I35.0 Abnormal stress ECG with treadmill R94.39 CPT Codes EKG - CPT: 88593-[id number], Complete ([id number]) Time Spent (min) 32
[2025-05-13 13:15] VITALS: BP 124/70; PULSE 65; BMI 38.3
--- OUTSIDE RECORDS SUMMARY | 2025-05-13 13:28 | XMS_ITS | Encounter Summary ---
Author Organization [employer] Address [address] [place] [address] Care Team Providers Care Torch Heater Name Role Phone Maria Isabel Avendano MD Primary Care Provider Encounter Details Date Type Department Care Team (Late st Contact Info) Description 12/31/2024 Lab Requisition [facility] - Main Lab [address] [facility] [place] [address] Liat Hdz MD [address] [id number] Hypocitraturia Social History Tobacco Use Types Packs/Day [...] ssp pneumoniae(A) JUDY 01/02/2025 10:17 AM EDT [facility] ([facility]) [facility] Comment: This is an edited [...] MICROBIOLOGY - G ENERAL ORDERABLES Final Result [facility] ([facility]) [facility] [address] [place] [address], [place] [phone] documented in this encounter Visit Diagnoses Diagnosis Hypocitraturia Other nonspecific finding on examination of urine documented in this encounter Care Teams Torch Heater Relationship Specialty Start Date End Date Maria Isabel Avendano MD [address] [facility] [place] [address] PCP - General Internal Medicine 11/20/24 documented as of this encounter
--- OUTSIDE RECORDS SUMMARY | 2025-05-13 13:28 | XMS_ITS | Encounter Summary ---
Author Organization [employer] Address [address] [place] [address] Care Team Providers Care Instrumentation Controls Engineer Name Role Phone Maria Isabel Avendano MD Primary Care Provider [phone] Encounter Details Date Type Department Care Team (Late st Contact Info) Description 11/19/2024 Lab Requisition [facility] - Main Lab [address] [place] [address] Maryann Awad MD [address] [place], [place] [phone] Other abnormal findings in urine Social History [...] ssp pneumoniae(A) JUDY 11/21/2024 10:02 AM EDT [facility] ([facility]) [facility] Comment: This is an [...] Intermediate Klebsiella pneumoniae ssp pneumoniae Trimethoprim/Sulfamethoxazo le JUYD <=20 ug/ml: Susceptible us Maryann Awad MD LAB MICROBIOLOGY - GENER AL ORDERABLES Final Result [facility]) HOSPITAL LAB [address] [place] [address], documented in this encounter Visit Diagnoses Diagnosis Other abnormal findings in urine documented in this encounter Care Teams Instrumentation Controls Engineer Relationship Specialty Start Date End Date Maria Isabel Avendano MD [address] [facility] [place] [address] PCP - General Internal Medicine 11/20/24 documented as of this encounter
--- OUTSIDE RECORDS SUMMARY | 2025-05-13 13:28 | XMS_ITS | Clinical Summary ---
Author Organization [address] [facility] Address [address] [place] [address] Phone Care Team Providers Care Automated Cutting Machine Operator Name Role Phone Maria Isabel Avendano MD Primary Care Provider [phone] Social History Tobacco Use Types Packs/Day Years Used Date Smoking Tobacco: Never Assessed Comments Unknown Sex and Gender Information Value Date Recorded Sex Assigned at Not on file Legal Sex Female 8:36 PM EST Gender Identity Not on file Sexual Orientation Not on file Plan of Treatment Health Maintenance Due Date Last Done Comments Breast Cancer Screening 1965 Colorectal Cancer Screening: Colonoscopy 1965 DTaP,Tdap,and Td Vaccines (1 - Tdap) 12/07/1983 Cervical Cancer Screening: P ap Smear 1985 Pneumococcal Vaccine: 50+ Ye ars (1 of 1 - PCV) 2014 Zoster Vaccines (1 of 2) 2014 HIV Screening 09/05/2023 Hepatitis C Screening 09/05/2023 Social Influencers of Health Screening 09/05/2023 Depression Screening 08/11/2024 COVID-19 Vaccine (1 - 2023-2 5 season) 2025 Influenza Vaccine [...] patient's age to complete this topic Insurance [facility] Care Teams Automated Cutting Machine Operator Relationship Specialty Start Date End Date Maria Isabel Avendano MD [address] [facility] [place] [address] PCP - General Internal Medicine 11/20/24
== END 2025-05-13 14:00 | disposition home or self-care (01) ==
LOC: HO.HCS 13:06
PROVIDERS: Visit Provider Nurse Practitioner Family
DX: I48.0 Paroxysmal atrial fibrillation (principal); I10 Essential (primary) hypertension; I35.0 Nonrheumatic aortic (valve) stenosis; R94.39 Abnormal result of other cardiovascular function study
CPT/HCPCS: 93010; 99214; G2211

== ENCOUNTER → 2025-05-13 13:06 | Outpatient (BNVA) | payer OTHER, SELFPAY | PROVIDERS: Visit Provider Nurse Practitioner Family | DX: I48.0 Paroxysmal atrial fibrillation (principal) | CPT/HCPCS: 93005 ==

== ENCOUNTER 2025-06-03 11:55 | Outpatient (AMB) | payer OTHER, SELFPAY ==
--- NOTE | 2025-06-03 11:56 | A.OFFPC_ITS ---
Vital Signs 06/03/25 11:58 Height 5 ft 3 in Weight 214 lb BMI 37.9 BP 132/72 Blood Pressure Location Rt brachial Position Sitting Respiration 16 Pulse 72 Pulse Source Pulse Oximeter Temp 98.2 F Temp Source Oral Pulse Oximetry (%) 96 Oxygen Delivery Method Room Air Intake Visit Reasons: 6 months f/up Spring Setter Required: No Allergies carvedilol Adverse Reaction (Severe, Verified 06/03/25 12:11) Shortness of Breath flecainide Adverse Reaction (Severe, Verified 06/03/25 12:10) Palpitations clavulanic acid (From AUGMENTIN) Adverse Reaction (Mild, Verified 05/13/25 13:17) Irritable Medication List - Last Reconciled 06/03/25 by Maria Isabel Avendano MD albuterol sulfate 90 mcg/actuation 2 puffs PO Q4H PRN apixaban (Eliquis) 5 mg PO BID 90 days diltiazem HCl CD (Cardizem CD) 240 mg PO DAILY escitalopram oxalate 20 mg PO DAILY lisinopril 10 mg PO DAILY 90 days omeprazole 20 mg PO DAILY Tobacco use date assessed: 06/03/25 Dental Screening Dental Screen Date: 06/03/25 Did you have a dental visit in the last 12 months?: Yes Did you have a dental problem in the last 6 months where you did not have access to dental care?: No Was dental information given to patient?: Patient has dentist HPI 6 months f/up HPI Details History of Present Illness The patient is a 59-year-old female presenting with paroxysmal atrial fibrillation, anxiety, and eczema. Paroxysmal Atrial Fibrillation: - Patient was previously prescribed flec ainide but her symptoms worsened with use. - Carvedilol was attempted but resulted in shortness of breath, thus discontinued. - Presently on Eliquis for atrial fibril lation management. - Currently undergoing evaluation by an senior accounting manager for potential ablation therapy. Anxiety: - Condition stabilized with escitalopram 20 mg. - No recent exacerbations reported. Eczema: - Development noted in the ear. - Inquiry and request for hydrocortisone cream made to address the condition. Medical History: - Paroxysmal Atrial Fibrillation - Anxiety - Gastroesophageal Reflux Disease (GERD) - Eczema Medications: - Lisinopril 10 mg for hypertension - Diltiazem 240 mg for atrial fibrillati on - Eliquis for paroxysmal atrial fibrilla tion - Escitalopram 20 mg for anxiety - Omeprazole for GERD Problem List - Paroxysmal Atrial Fibrillation - Anxiety - Gastroesophageal Reflux Disease (GERD) - Eczema Plan - I have placed orders for the necessary labs during this visit to ensure comprehensive follow-up and management of conditions. - For paroxysmal atrial fibrillation, co ntinue current Eliquis regimen. Ongoing evaluation with an senior accounting manager is essential to determine the need for ablation. - Manage anxiety with continued use of e scitalopram, stability noted in symptoms. - GERD remains stable under current omep razole therapy; continue regimen. - Treatment of eczema includes prescribi ng hydrocortisone cream as requested. Monitor and reassess condition during follow-up. - I have scheduled the patient's routine OBGYN appointment to ensure continuation of preventive care. - Blood pressure management remains effe ctive with current lisinopril dosage. - Ensure follow-up visit coincides with patient's upcoming physical examination in November for comprehensive evaluation and continued care updates. Review of Systems - General: No fever no chills - Neurological: No headaches no dizziness - Ear nose throat: No sore throat no hearing difficulty no ear pain - Cardiovascular: No syncope, no chest pain, no palpitations - Gastrointestinal: No nausea vomiting or diarrhea - Endocrine: No polyuria polydipsia no heat intolerance - Genitourinary: No dysuria , no blood in urine Physical Exam General: No acute distress HEENT: No acute findings Neck: Supple Respiratory system: Able to talk in full sentences, no audible wheeze Cardiovascular: S1-S2 regular in rate and rhythm Gastrointestinal: No pain Extremities: No new findings 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 HELPER: Alert awake oriented x3 motor intact Skin: Normal turgor, eczema in ear [facility] Medical History Encounter for routine gynecological examination Impaired fasting blood sugar Encounter for general adult medical examination with abnormal findings Itching of ear Hospital discharge follow-up Biliary colic Cholelithiasis RUQ abdominal pain Obesity due to excess calories Change in bowel function Rectal bleed Ex-smoker Shortness of breath Premature atrial contraction Obesity Fear of flying History of renal calculi Migraine headache Anxiety, generalized Surgical History Hx laparoscopic cholecystectomy (01/13/23) Hx of colonoscopy History of ureter stent History of cystoscopy History of appendectomy History of tonsillectomy History of section History of knee surgery History of lithotripsy History of oophorectomy Family History Father Unknown family medical history Mother COPD (chronic obstructive pulmonary disease) HTN (hypertension) CVD (cardiovascular disease) Son No problems noted. Daughter No problems noted. 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 1. Little interest or pleasure in doing things: not at all 2. Feeling down, depressed, or hopeless: not at all 3. Trouble falling or staying asleep, or sleeping too much: not at all 4. Feeling tired or having little energy: not at all 5. Poor appetite or overeating: not at all 6. Feeling bad about yourself - or that you are a failure or have let yourself or your family down: not at all 7. Trouble concentrating on things, such as reading the newspaper or watching television: not at all 8. Moving or speaking so slowly that other people could have noticed. Or the opposite - being so fidgety or restless that you have been moving around a lot more than usual: not at all 9. Thoughts that you would be better off or of hurting yourself in some way: not at all Total score: 0 Depression Screening Interpretation: Negative Depression Screening Done: Yes 28188 - PHQ-9 Billing: Yes Source: Developed by Drs. Frederick Benton, Vaishnavi Cadena, Reza Mandel and colleagues, with an educational low from [employer]. Thrive Questionnaire Date Thrive assessed: 11/22/24 I am a: Patient What is your living situation today?: I have a steady place to live Within the past 12 months, did the food you bought not last and you didn't have the money to get more?: Never true Within the past 12 months, did you worry whether your food would run out before you got money to buy more?: Never true Do you have trouble paying for medicines?: No Do you have trouble getting transportation to medical appointments?: No Do you have trouble paying your heating and electricity bill?: No Do you have trouble taking care of your child, family member or friend?: No Do you have trouble with day-to-day activities such as bathing, preparing meals, shopping, managing finances, etc.?: No Are you currently unemployed and looking for a job?: No Are you interested in more education?: No Please select the resources that you would like help with: None Currently or been in a relationship where the following occur: No concerns reported THRIVE Score: 0 AUDIT C Alcohol Use Questionnaire (AUDIT-C) 1. How often do you have a drink containing alcohol?: Monthly or less 2. How many drinks containing alcohol do you have on a typical day when you are drinking?: 1 or 2 3. How often do you have six or more drinks on one occasion?: Never Total Score: 1 ADRIANNA-7 AMB Questionnaire ADRIANNA-7 Date ADRIANNA - 7 assessed: 11/26/24 Feeling nervous, anxious, or on edge: 0 = Not at all Not being able to stop or control worryin = Not at all Worrying too much about different things: 0 = Not at all Trouble relaxin = Not at all Being so restless that it is hard to sit still: 0 = Not at all Becoming easily annoyed or irritable: 0 = Not at all Feeling afraid as if something awful might happen: 0 = Not at all Total ADRIANNA-7 score (0-4 normal; 5-9 mild; 10-14 moderate; 15-21 severe): 0 Source: Developed by Drs. Frederick Benton, Vaishnavi Cadena, Reza Mandel and colleagues, with an educational low from [employer]. ADRIANNA-7 Assessment Billing ADRIANNA-7 Assessment Tool: ADRIANNA-7 Assessment 18195 Physical exam (Primary Care) Vital Signs: Last Vital Signs Temp 98.2 F 06/03/25 11:58 Pulse 72 06/03/25 11:58 Resp 16 06/03/25 11:58 BP 132/72 10/24/25 11:58 Pulse Ox 96 06/03/25 11:58 Oxygen Delivery Method Room Air 06/03/25 11:58 BMI result Body Mass Index 37.9 Tobacco/Smoking Status: Tobacco use Status Tobacco use date assessed 06/03/25 06/03/25 12:02 Patient Tobacco Use Status Never used Tobacco 06/03/25 12:02 Tobacco use type Cigarette 06/03/25 12:02 e-Cigarette/Vaping Use Never Used 06/03/25 12:02 PHQ-9: PHQ-9 Score PHQ-9: Total score 0 06/03/25 12:02 Depression Screening Interpretation: Negative Thrive Assessment: Date of Thrive Assessment Date Thrive assessed 11/22/24 06/03/25 12:02 Currently or been in a relationship where the following occur: No concerns reported Coding Level of Care Code Est Pt Level 4 (02621) Diagnoses PAF (paroxysmal atrial fibrillation) I48.0 Anxiety, generalized F41.1 Recurrent major depressive disorder, in full remission F33.42 Active/Remission status: in full remission Essential hypertension I10 Impaired fasting blood sugar R73.01 Additional Codes PHQ-9 - 67886 - PHQ-9 Billing: Yes ([id number]) ADRIANNA-7 Assessment Billing - ADRIANNA-7 Assessment Tool: ADRIANNA-7 Assessment 78155 ([id number]) Assessment & Plan Assessment & Plan (1) PAF (paroxysmal atrial fibrillation): Code(s): I48.0 - Paroxysmal atrial fibrillation Category: Medical (2) Anxiety, generalized: Code(s): F41.1 - Generalized anxiety disorder Category: Medical (3) Major depression, recurrent: Code(s): F33.9 - Major depressive disorder, recurrent, unspecified Category: Medical Qualifiers: Active/Remission status: in full remission Qualified Code(s): F33.42 - Major depressive disorder, recurrent, in full remission (4) Essential hypertension: Code(s): I10 - Essential (primary) hypertension Category: Medical (5) Impaired fasting blood sugar: Code(s): R73.01 - Impaired fasting glucose Category: Medical Plan Paroxysmal Atrial Fibrillation: - Patient was previously prescribed flecainide but her symptoms worsened with use. - Carvedilol was attempted but resulted in shortness of breath, thus discontinued. - Presently on Eliquis for atrial fibrillation management. - Currently undergoing evaluation by an senior accounting manager for potential ablation therapy. Anxiety: - Condition stabilized with escitalopram 20 mg. - No recent exacerbations reported. Eczema: - Development noted in the ear. - Inquiry and request for hydrocortisone cream made to address the condition. Medical History: - Paroxysmal Atrial Fibrillation - Anxiety - Gastroesophageal Reflux Disease (GERD) - Eczema Medications: - Lisinopril 10 mg for hypertension - Diltiazem 240 mg for atrial fibrillation - Eliquis for paroxysmal atrial fibrillation - Escitalopram 20 mg for anxiety - Omeprazole for GERD Problem List - Paroxysmal Atrial Fibrillation - Anxiety - Gastroesophageal Reflux Disease (GERD) - Eczema Plan - I have placed orders for the necessary labs during this visit to ensure comprehensive follow-up and management of conditions. - For paroxysmal atrial fibrillation, continue current Eliquis regimen. Ongoing evaluation with an senior accounting manager is essential to determine the need for ablation. - Manage anxiety with continued use of escitalopram, stability noted in symptoms. - GERD remains stable under current omeprazole therapy; continue regimen. - Treatment of eczema includes prescribing hydrocortisone cream as requested. Monitor and reassess condition during follow-up. - I have scheduled the patient's routine OBGYN appointment to ensure continuation of preventive care. - Blood pressure management remains effective with current lisinopril dosage. - Ensure follow-up visit coincides with patient's upcoming physical examination in November for comprehensive evaluation and continued care updates. Orders: Orders Comprehensive Met. Panel Today F33.42 - Major depressive disorder, recurrent, in full remission, F41.1 - Generalized anxiety disorder, I10 - Essential (primary) hypertension, I48.0 - Paroxysmal atrial fibrillation, R73.01 - Impaired fasting glucose LDL Cholesterol Direct Today F33.42 - Major depressive disorder, recurrent, in full remission, F41.1 - Generalized anxiety disorder, I10 - Essential (primary) hypertension, I48.0 - Paroxysmal atrial fibrillation, R73.01 - Impaired fasting glucose Hemoglobin A1c Today R73.01 - Impaired fasting glucose Complete Blood Count Auto Diff Today F33.42 - Major depressive disorder, recurrent, in full remission, F41.1 - Generalized anxiety disorder, I10 - Essential (primary) hypertension, I48.0 - Paroxysmal atrial fibrillation, R73.01 - Impaired fasting glucose TSH reflex Free T4 Today F33.42 - Major depressive disorder, recurrent, in full remission, F41.1 - Generalized anxiety disorder, I10 - Essential (primary) hypertension, I48.0 - Paroxysmal atrial fibrillation, R73.01 - Impaired fasting glucose Referrals [facility] [employer] Referral Z01.419 - Encounter for gynecological examination (general) (routine) without abnormal findings Medications: New hydrocortisone 2.5% 1 appl topical BEDTIME PRN 30 grams 0RF skin irritation 30 days
[2025-06-03 11:58] VITALS: BP 132/72; PULSE 72; RESP 16; TEMP 36.8; O2SAT 96; BMI 37.9
--- OUTSIDE RECORDS SUMMARY | 2025-06-03 14:14 | XMS_ITS | Clinical Summary ---
Author Organization [address] [facility] Address [address] [place] [address] Phone Care Team Providers Care Molding Plasterer Name Role Phone Maria Isabel Avendano MD Primary Care Provider [phone] Social History Tobacco Use Types Packs/Day Years [...] age to complete this topic Insurance [facility] Care Teams Molding Plasterer Relationship Specialty Start Date End Date Maria Isabel Avendano MD [address] [facility] [place] [address] PCP - General Internal Medicine 11/20/24
--- OUTSIDE RECORDS SUMMARY | 2025-06-03 14:14 | XMS_ITS | Encounter Summary ---
Author Organization [employer] Address [address] [place] [address] Care Team Providers Care Slack Line Yarder Name Role Phone Maria Isabel Avendano MD Primary Care Provider [phone] Encounter Details Date Type Department Care Team (Late st Contact Info) Description 11/19/2024 Lab Requisition [facility] - Main Lab [address] [facility] [employer] [address] Maryann Awad MD [address] [place], [place] [phone] Other abnormal findings in urine Social History [...] 10:02 AM EDT [facility] ([facility]) [facility] Comment: This is an [...] ORDERABLES Final Result [facility] ([facility]) HOSPITAL LAB [address] [place] [address], documented in this encounter Visit Diagnoses Diagnosis Other abnormal findings in urine documented in this encounter Care Teams Slack Line Yarder Relationship Specialty Start Date End Date Maria Isabel Avendano MD [address] [facility] [address] PCP - General Internal Medicine 11/20/24 documented as of this encounter
--- OUTSIDE RECORDS SUMMARY | 2025-06-03 14:14 | XMS_ITS | Encounter Summary ---
Author Organization [employer] Address [address] [place] [address] Care Team Providers Care Specialist Physicians Name Role Phone Maria Isabel Avendano MD Primary Care Provider [phone] Encounter Details Date Type Department Care Team (Late st Contact Info) Description 12/31/2024 Lab Requisition [facility] - Main Lab [address] [facility] [place] [address] Liat Hdz MD [address] [id number] Hypocitraturia Social History Tobacco Use Types Packs/Day [...] ssp pneumoniae(A) JUDY 01/02/2025 10:17 AM EDT [facility] ([facility]) [facility] Comment: This is an [...] le JUDY <=20 ug/ml: Susceptible us Liat Hzd MD LAB MICROBIOLOGY - G ENERAL ORDERABLES Final Result [facility] ([facility]) [facility] [address] [place] [address], [place] [phone] documented in this encounter Visit Diagnoses Diagnosis Hypocitraturia Other nonspecific finding on examination of urine documented in this encounter Care Teams Specialist Physicians Relationship Specialty Start Date End Date Maria Isabel Avendano MD [address] [facility] [place] [address] PCP - General Internal Medicine 11/20/24 documented as of this encounter
== END 2025-06-03 12:31 | disposition home or self-care (01) ==
LOC: HO.HMCC 11:55
PROVIDERS: PCP Internal Medicine; Visit Provider Internal Medicine
DX: I48.0 Paroxysmal atrial fibrillation (principal); F41.1 Generalized anxiety disorder; F33.42 Major depressive disorder, recurrent, in full remission; I10 Essential (primary) hypertension; R73.01 Impaired fasting glucose

== ENCOUNTER → 2025-06-03 11:55 | Outpatient (BNVA) | payer OTHER, SELFPAY | PROVIDERS: PCP Internal Medicine; Visit Provider Internal Medicine | DX: I48.0 Paroxysmal atrial fibrillation (principal); L30.9 Dermatitis, unspecified; K21.9 Gastro-esophageal reflux disease without esophagitis; F41.1 Generalized anxiety disorder; F33.42 Major depressive disorder, recurrent, in full remission; I10 Essential (primary) hypertension; R73.01 Impaired fasting glucose | CPT/HCPCS: 96127 ==

== ENCOUNTER → 2025-06-17 09:46 | Outpatient (REF) | payer OTHER, SELFPAY ==
--- NOTE | ~2025-06-17 | NM_ITS ---
Lexiscan Myocardial perfusion study Indication: Abnormal stress test evaluate for myocardial ischemia Technique: The patient was brought in for a Lexiscan perfusion study on 06/17/2025 and was injected 0.4 mg of Lexiscan intravenously. Within a minute of this injection 30 mCi of sestamibi was given intravenously. Images were obtained using the SPECT gamma camera interlaced with the gating device. Images were obtained in supine and prone position. Resting perfusion study was performed on 06/20/2025. Patient was administered 30 mCi of sestamibi intravenously at rest. Images were then obtained in supine position. Images were processed with the software and compared side to side in short axis, horizontal long axis and vertical long axis views. Findings: The stress perfusion study showed both supine and prone position images show overall normal uptake of radiotracer in all segments of the LV myocardium with minimal reduced uptake in the apex of the LV myocardium. The gated study shows normal LV systolic function with calculated LVEF of 70%. LV cavity is normal in size. The gated study shows normal systolic wall thickening and contraction of segments. Resting study shows supine images show mildly reduced uptake in the inferior as well as minimal reduced uptake in the apex of the LV myocardium. Gating at rest reveals normal systolic wall motion with ejection fraction at greater than 70%. The findings are consistent with normal myocardial perfusion. NM/NM cardiolite stress test Impression: 1. Myocardial perfusion imaging study shows normal myocardial perfusion 2. Gated LVEF is 70% 3. Transient ischemic dilatation not present Nondiagnostic changes on EKG. Electronically signed by: Willy Herring MD 06/21/2025 12:19 PM [facility]
--- NOTE | 2025-06-17 09:51 | CA_ITS ---
Acquisition Time: 2025-06-17 10:00:08 Total Exercise Time: 00:02:00 Test Indications: afib, sob Medications: see h&p Protocol: LEXISCAN Max HR: 93 BPM 58% of Pred: 160 BPM Max BP: 140/80 mmHG Max Work Load: 1.0 METS Pharmacological stress test with Lexiscan while pt swings her legs in chair, with reports of SOB and fatigue, without any arrythmias, with normotensive response to injection. Nondiagnostic EKG for ischemia. In recovery, pt treated with IVP Aminophylline 75 mg to reverse Lexiscan after which pt feeling back to baseline. Nuclear images pending. Test reviewed with Dr. Mora. Referred By: Junior Bettencourt Electronically Signed By: Junior Bettencourt
--- OUTSIDE RECORDS SUMMARY | 2025-06-17 11:11 | XMS_ITS | Encounter Summary ---
Author Organization [employer] Address [address] [place] [address] Care Team Providers Care Marketing Program Coordinator Name Role Phone Maria Isabel Avendano MD Primary Care Provider [phone] Encounter Details Date Type Department Care Team (Late st Contact Info) Description 11/19/2024 Lab Requisition [facility] - Main Lab [address] [facility] [place] [address] Maryann Awad MD [address] [place], [place] [phone] Other abnormal findings in urine Social History [...] ssp pneumoniae(A) JUDY 11/21/2024 10:02 AM EDT [facility] ([facility]) [facility] Comment: This is an edited result. [...] MICROBIOLOGY - GENER AL ORDERABLES Final Result [facility] ([facility] HOSPITAL LAB [address] [place] [address], documented in this encounter Visit Diagnoses Diagnosis Other abnormal findings in urine documented in this encounter Care Teams Marketing Program Coordinator Relationship Specialty Start Date End Date Maria Isabel Avendano MD [address] [facility] [place] [address] PCP - General Internal Medicine 11/20/24 documented as of this encounter
--- OUTSIDE RECORDS SUMMARY | 2025-06-17 11:11 | XMS_ITS | Encounter Summary ---
Author Organization [employer] Address [address] [place] [address] Care Team Providers Care Mussel Opener Name Role Phone Maria Isabel Avendano MD Primary Care Provider [phone] Encounter Details Date Type Department Care Team (Late st Contact Info) Description 12/31/2024 Lab Requisition [facility] - Main Lab [address] [facility] [place] [address] Liat Hdz MD [address] [place] [address] [phone] Hypocitraturia Social History Tobacco Use Types Packs/Day [...] ssp pneumoniae(A) JUDY 01/02/2025 10:17 AM EDT [facility] ([facility]) [facility] Comment: This is an edited [...] Trimethoprim/Sulfamethoxazo le JUDY <=20 ug/ml: Susceptible us iLat Hdz MD LAB MICROBIOLOGY - G ENERAL ORDERABLES Final Result [facility] ([facility]) [facility] [address] [place] [address], [place] [phone] documented in this encounter Visit Diagnoses Diagnosis Hypocitraturia Other nonspecific finding on examination of urine documented in this encounter Care Teams Mussel Opener Relationship Specialty Start Date End Date Maria Isabel Avendano MD [address] [facility] [place] [address] PCP - General Internal Medicine 11/20/24 documented as of this encounter
--- OUTSIDE RECORDS SUMMARY | 2025-06-17 11:11 | XMS_ITS | Clinical Summary ---
Author Organization [address] [facility] Address [address] [place] [address] Phone Care Team Providers Care Personnel Placement Specialist Name Role Phone Maria Isabel Avendano MD Primary Care Provider [phone] Social History Tobacco Use Types Packs/Day Years [...] patient's age to complete this topic Insurance [facility] Care Teams Personnel Placement Specialist Relationship Specialty Start Date End Date Maria Isabel Avendano MD [address] [place] [address] PCP - General Internal Medicine 11/20/24
== END ==
LOC: HO.CARD 09:46
PROVIDERS: PCP Internal Medicine
DX: R94.39 Abnormal result of other cardiovascular function study (principal); R06.09 Other forms of dyspnea; I48.91 Unspecified atrial fibrillation; R06.02 Shortness of breath
CPT/HCPCS: 78452; 93017; A9500; J0280; J2785

== ENCOUNTER → 2025-06-17 09:51 | Outpatient (BNV) | payer OTHER, SELFPAY | PROVIDERS: PCP Internal Medicine | DX: R94.31 Abnormal electrocardiogram [ECG] [EKG] (principal) | CPT/HCPCS: 78452; 93016; 93018 ==

== ENCOUNTER 2025-06-27 07:27 | Outpatient (REF) | payer OTHER, SELFPAY ==
--- OUTSIDE RECORDS SUMMARY | 2025-06-27 07:50 | XMS_ITS | Clinical Summary ---
Author Organization [address] [facility] Address [address] [place] [address] Phone Care Team Providers Care Compressor Mechanic Name Role Phone Maria Isabel Avendano MD Primary Care Provider [phone] Social History Tobacco Use Types Packs/Day Years [...] Depression Screening 08/11/2024 COVID-19 Vaccine (1 - 2024-2 6 season) 2025 Influenza Vaccine (#1) 2025 RSV [...] patient's age to complete this topic Insurance [facility] Care Teams Compressor Mechanic Relationship Specialty Start Date End Date Maria Isabel Avendano MD [address] [facility] [place] [address] PCP - General Internal Medicine 11/20/24
--- OUTSIDE RECORDS SUMMARY | 2025-06-27 07:50 | XMS_ITS | Encounter Summary ---
Author Organization [employer] Address [address] [place] [address] Care Team Providers Care Lead Retail Sales Associate Name Role Phone Maria Isabel Avendano MD Primary Care Provider [phone] Encounter Details Date Type Department Care Team (Late st Contact Info) Description 12/31/2024 Lab Requisition [facility] - Main Lab [address] [facility] [place] [address] Liat Hdz MD [address] [id number] Hypocitraturia Social History Tobacco Use Types Packs/Day [...] ssp pneumoniae(A) JUDY 01/02/2025 10:17 AM EDT [facility] Comment: This [...] MICROBIOLOGY - G ENERAL ORDERABLES Final Result [facility] ([facility] [address] [place] [address], [place] [phone] documented in this encounter Visit Diagnoses Diagnosis Hypocitraturia Other nonspecific finding on examination of urine documented in this encounter Care Teams Lead Retail Sales Associate Relationship Specialty Start Date End Date Maria Isabel Avendano MD [address] [facility] [place] [address] PCP - General Internal Medicine 11/20/24 documented as of this encounter
--- OUTSIDE RECORDS SUMMARY | 2025-06-27 07:50 | XMS_ITS | Encounter Summary ---
Author Organization [employer] Address [address] [place] [address] Care Team Providers Care Hog Counter Name Role Phone Maria Isabel Avendano MD Primary Care Provider [phone] Encounter Details Date Type Department Care Team (Late st Contact Info) Description 11/19/2024 Lab Requisition [facility] - Main Lab [address] [facility] [place] [address] Maryann Awad MD [address] [place], [place] [id number] Other abnormal findings in urine Social History [...] ssp pneumoniae(A) JUDY 11/21/2024 10:02 AM EDT [facility] Comment: This is an edited [...] MICROBIOLOGY - GENER AL ORDERABLES Final Result [facility] [address] [place] [address], documented in this encounter Visit Diagnoses Diagnosis Other abnormal findings in urine documented in this encounter Care Teams Hog Counter Relationship Specialty Start Date End Date Maria Isabel Avendano MD [address] [facility] [place] [address] PCP - General Internal Medicine 11/20/24 documented as of this encounter
[2025-06-27 10:29] LABS: MANUAL DIFF FLAG NO
[2025-06-27 10:33] LABS: Hematocrit 39.1 % (37.0-47.0); Hemoglobin 12.8 g/dl (12.0-16.0); Imm Gran Abs Auto 0.02 X10*3/uL (0.00-0.03); Imm Gran Pct Auto 0.2 % (0.0-0.4); Lymphocytes Absolute Auto 1.9 X10*3/uL (1.2-4.9); Mean Corpuscular HGB Conc 32.7 g/dl (31.0-35.0); Mean Corpuscular Hemoglobin 28.3 pg (27.0-33.0); Mean Corpuscular Volume 86.3 fL (80.0-98.0); NRBC Abs Auto 0.000 X10*3/uL (0.0-0.012); NRBC Pct Auto 0.0 /100WBC (0.0-0.2); Platelet Count 232 X10*3/uL (160-400); Red Blood Count 4.53 X10*6/uL (4.20-5.50); White Blood Count 8.7 X10*3/uL (4.8-10.8)
[2025-06-27 10:52] LABS: Alanine Aminotransferase 28 U/L (0-31); Albumin Level 4.3 g/dL (3.5-5.0); Alkaline Phosphatase 90 U/L (39-117); Anion Gap 14 (12-20); Aspartate Amino Transferase 17 U/L (5-31); Blood Urea Nitrogen 19 mg/dL (9-16); Calcium 9.5 mg/dL (8.4-10.2); Carbon Dioxide 24 mmol/L (22-29); Chloride 106 mmol/L (96-108); Estimated Glomerular Filt Rate 53; Potassium 4.2 mmol/L (3.3-5.1); Sodium 140 mmol/L (135-145); Total Protein 6.9 g/dL (6.5-8.0)
== END 2025-06-27 07:28 | disposition home or self-care (01) ==
LOC: HO.HMGCLDS 07:27
PROVIDERS: PCP Internal Medicine; Visit Provider Internal Medicine
DX: N30.90 Cystitis, unspecified without hematuria (principal); F41.1 Generalized anxiety disorder; F33.42 Major depressive disorder, recurrent, in full remission; I10 Essential (primary) hypertension; I48.0 Paroxysmal atrial fibrillation; R73.01 Impaired fasting glucose
CPT/HCPCS: 36415; 80053; 81003; 83036; 83721; 84443; 85025

== ENCOUNTER 2025-06-27 07:43 | Outpatient (AMB) | payer OTHER, SELFPAY ==
--- NOTE | 2025-06-27 07:52 | MHC.OFFWIV ---
Intake Vital Signs 06/27/25 07:53 Height 5 ft 3 in Weight 216 lb BMI 38.3 BP 124/82 Blood Pressure Location Rt brachial Position Sitting Pulse 69 Pulse Source Pulse Oximeter Temp 98 F Temp Source Oral Pulse Oximetry (%) 96 Oxygen Delivery Method Room Air Intake Visit Reasons: EP-uti Intake Note: Patient presents c/o urinary symptoms x3 days. Patient Tobacco Use Status: Never used Tobacco Allergies carvedilol Adverse Reaction (Severe, Verified 06/27/25 07:56) Shortness of Breath flecainide Adverse Reaction (Severe, Verified 06/27/25 07:56) Palpitations clavulanic acid (From AUGMENTIN) Adverse Reaction (Mild, Verified 06/27/25 07:56) Irritable Medication List - Last Reconciled 06/27/25 by Capri Castro NP albuterol sulfate 90 mcg/actuation 2 puffs PO Q4H PRN apixaban (Eliquis) 5 mg PO BID 90 days cefuroxime axetil 500 mg PO BID 7 days cyclobenzaprine 5 mg PO BEDTIME diltiazem HCl CD (Cardizem CD) 240 mg PO DAILY escitalopram oxalate 20 mg PO DAILY hydrocortisone 2.5% 1 appl topical BEDTIME PRN 30 days lisinopril 10 mg PO DAILY 90 days omeprazole 20 mg PO DAILY Do you need a note to return to daycare/school/sports/work: No HPI HPI Comments History of Present Illness Details 59-year-old female presents to the walk-in clinic with a 3-day history of urinary symptoms. She reports urinary urgency, frequency, and dysuria. She also notes lower pelvic discomfort. She denies fever, chills, nausea, vomiting, flank pain, hematuria, vaginal discharge, vaginal itching, or bowel symptoms. No concerns for STI exposure. [facility] Medical History (Updated 06/27/25 @ 08:36 by Capri Castro NP) Cystitis Encounter for routine gynecological examination Impaired fasting blood sugar Encounter for general adult medical examination with abnormal findings Itching of ear Hospital discharge follow-up Biliary colic Cholelithiasis RUQ abdominal pain Obesity due to excess calories Change in bowel function Rectal bleed Ex-smoker Shortness of breath Premature atrial contraction Obesity Fear of flying History of renal calculi Migraine headache Anxiety, generalized Surgical History Hx laparoscopic cholecystectomy (01/13/23) Hx of colonoscopy History of ureter stent History of cystoscopy History of appendectomy History of tonsillectomy History of section History of knee surgery History of lithotripsy History of oophorectomy Family History Father Unknown family medical history Mother COPD (chronic obstructive pulmonary disease) HTN (hypertension) CVD (cardiovascular disease) Son No problems noted. Daughter No problems noted. 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 Cognitive needs: No Hearing needs: No Vision needs: Yes Review of Systems Const All systems reviewed & are unremarkable except as noted in HPI and below Physical Exam Vital Signs: Last Vital Signs Temp 98 F 06/27/25 07:53 Pulse 69 06/27/25 07:53 BP 124/82 06/27/25 07:53 Pulse Ox 96 06/27/25 07:53 Oxygen Delivery Method Room Air 06/27/25 07:53 BMI result Body Mass Index 38.3 Const General: no acute distress Nutritional Appearance: obese Orientation/consciousness: patient oriented x3 Resp Effort & Inspection: normal respiratory effort Cardio Rate: regular rate GI Other: Soft, nondistended; mild suprapubic tenderness; no rebound/guarding. General: Yes no CVA tenderness and Yes deferred Back/Spine/Pelvis Back: no CVA tenderness Neuro General: patient oriented x3 Results AMB Urinalysis, Automated UA Leukoctes 125 Zach/uL Last Edit by Merly Elena CMA on 06/27/25 08:08 UA Nitrite Positive Last Edit by Merly Elena CMA on 06/27/25 08:08 UA Urobilinogen 4 mg/dL Last Edit by Merly Elena CMA on 06/27/25 08:08 UA Protein 30 mg/dL Last Edit by Merly Elena CMA on 06/27/25 08:08 UA pH 6.0 Last Edit by Merly Elena CMA on 06/27/25 08:08 UA Blood 80 Charlie/uL Last Edit by Merly Elena CMA on 06/27/25 08:08 UA Specific Davy 1.025 Last Edit by Merly Elena CMA on 06/27/25 08:08 UA Ketone Negative Last Edit by Merly Elena CMA on 06/27/25 08:08 UA Bilirubin 2 mg/dL Last Edit by Merly Elena CMA on 06/27/25 08:08 UA Glucose 0 mg/dL Last Edit by Merly Elena CMA on 06/27/25 08:08 Results Reviewed Results Reviewed: Laboratory Last Values Urine pH (Auto) 6.0 06/27/25 08:06 Specific Davy (Auto) 1.025 06/27/25 08:06 Urine Protein (Auto) 30 mg/dL H* 06/27/25 08:06 Glucose (UA)(Auto) 0 mg/dL 06/27/25 08:06 Urine Ketones (Auto) Negative 06/27/25 08:06 Urine Blood (Auto) 80 Charlie/uL H* 06/27/25 08:06 Urine Nitrite (Auto) Positive A* 06/27/25 08:06 Urine Bilirubin (Auto) 2 mg/dL L* 06/27/25 08:06 Urine Urobilinogen (Auto) 4 mg/dL H* 06/27/25 08:06 Leukocyte Esterase (Auto) 125 Zach/uL H* 06/27/25 08:06 Assessment & Plan Assessment & Plan (1) Cystitis: Code(s): N30.90 - Cystitis, unspecified without hematuria Plan: Acute uncomplicated cystitis ? Most consistent with symptoms of urgency, frequency, dysuria, and suprapubic discomfort without systemic signs. Low concern for pyelonephritis ? No fever, chills, flank pain, or N/V. Start empiric antibiotic therapy pending culture: Cefuroxime PO BID x 5 days. Increase oral hydration. Avoid bladder irritants (caffeine, alcohol, citrus, carbonated drinks). Phenazopyridine PRN for symptom relief x 2?3 days, with counseling about orange urine discoloration. Follow up if symptoms worsen, if fever/chills develop, or if no improvement within 48?72 hours. Await urine culture and adjust antibiotics if needed. Orders: Orders AMB Urinalysis Automated Today Z13.9 - Encounter for screening, unspecified Urine Culture Today N30.90 - Cystitis, unspecified without hematuria Medications: New cefuroxime axetil 500 mg PO BID 14 tabs 0RF 7 days N30.90 - Cystitis, unspecified without hematuria Coding Level of Care Code Est Pt Level 4 (40858) Diagnoses Cystitis N30.90 Time Spent (min) 20
[2025-06-27 07:53] VITALS: BP 124/82; PULSE 69; TEMP 36.6; O2SAT 96; BMI 38.3
== END 2025-06-27 08:27 | disposition home or self-care (01) ==
PROVIDERS: PCP Internal Medicine; Visit Provider Nurse Practitioner Family
DX: Z13.9 Encounter for screening, unspecified (principal); N30.90 Cystitis, unspecified without hematuria

== ENCOUNTER 2025-06-27 08:06 | Outpatient (REF) | payer OTHER, SELFPAY | END 2025-06-27 08:07 | disposition home or self-care (01) | LOC: HO.LAB 08:06 | PROVIDERS: Visit Provider Nurse Practitioner Family | DX: N30.90 Cystitis, unspecified without hematuria (principal) | CPT/HCPCS: 87086 ==